=== PATIENT | female | born 1955 | race Caucasian/White ===

== ENCOUNTER 2018-05-24 19:39 | Inpatient (IN) | payer MEDICARE, MEDICAID, SELFPAY ==
[2018-05-24] VITALS (8 sets, daily range): BP systolic 118–146; BP diastolic 74–99; PULSE 70–96; RESP 12–20; TEMP 36.1–37.8; O2SAT 89–94; BMI 29.2
--- NOTE | 2018-05-24 19:34 | DI.RAD.S_ITS ---
PROCEDURE: XR CHEST 1V INDICATIONS: CP, SOB TECHNIQUE: One view of the chest was acquired. COMPARISON: None. FINDINGS: Surgical changes and devices: Multiple ECG leads project of the chest. Surgical clips are seen over the right upper quadrant of the abdomen likely from prior cholecystectomy.. Lungs and pleura: No pleural effusions or pneumothorax. There are diffuse bilateral hazy and reticular pulmonary opacities. Mediastinum: Mediastinal contours appear normal. Heart size is normal. Bones and chest wall: No suspicious bony lesions. Overlying soft tissues appear unremarkable. IMPRESSION: Diffuse bilateral pulmonary opacities concerning for moderate diffuse pulmonary edema, less likely multifocal pneumonia. Dictated by: Vladimir Pedroza M.D. on 05/24/2018 at 21:51 Approved by: Vladimir Pedroza M.D. on 05/24/2018 at 21:53
--- NOTE | 2018-05-24 19:38 | ED.SOB ---
HPI - SOB/Dyspnea General Chief Complaint: Shortness of Breath/Dyspnea Stated Complaint: SOB/ Weakness Time Seen by Provider: 05/24/18 19:40 Source: patient and EMS Mode of arrival: EMS Limitations: no limitations History of Present Illness 63-year-old female with complicated medical history including frequent aspiration pneumonia and a history of ARDS and multiple intubations presents with respiratory distress over the course of the day. She is supposed to ingest wall food, medications and liquid through her G-tube but yesterday broke the rules and says she aspirated. Since then she has had increasing difficulty in breathing. She is not on home oxygen, she lives at home and has a caregiver. She has had subjective fever and increasing shortness of breath and cough. On arrival EMS found her pulse ox to be 71%, And she was cyanotic and obtunded. She was placed on 4 L by nasal cannula and had risen to the upper 80s by her arrival but was still obviously in respiratory distress. She denies any chest pain nor nausea or vomiting. She denies any change in bowel habits. MD Complaint: shortness of breath and cough Onset (ago): hour(s) Context: choking/aspiration Severity: severe Consistency/Duration: constant Relieving factors: oxygen Exacerbating factors: exertion, movement and coughing Associated symptoms: fever, cough and sputum production Treatment prior to arrival: oxygen and bronchodilator Related Data Home oxygen amount: none Home Medications Medication Instructions Recorded Confirmed CHOLECALCIFEROL (VITAMIN D) 2,000 iu TUBE BID #0 09/04/12 05/24/18 MORPHINE SULFATE (#MORPHINE 30 mg TUBE Q6HP PRN #0 09/04/12 05/24/18 SULFATE) albuterol sulfate [Proventil HFA] 2 puff INH Q4HP PRN #8.5 gm 09/04/12 05/24/18 carisoprodol 1 tab TUBE PRN PRN #0 09/04/12 05/24/18 diazepam 5 mg PO BIDP PRN #0 09/04/12 05/24/18 fentanyl 200 mcg TOPICAL Q72H #0 09/04/12 05/24/18 hydromorphone [Dilaudid] 8 mg TUBE TIDP PRN #0 09/04/12 05/24/18 omeprazole-sodium bicarbonate 1 pkt FEEDING TUBE BID #0 09/04/12 05/24/18 [Zegerid] polyethylene glycol 3350 17 gm FEEDING TUBE PRN PRN #0 09/04/12 05/24/18 DIPHENOXYLATE/ATROPINE SULFATE 1 - 2 tab FEEDING TUBE QIDP PRN #0 09/07/12 05/24/18 (DIPHENOXYLATE/ATROPINE) albuterol sulfate 3 ml INH PRN PRN #0 09/07/12 05/24/18 citalopram 10 mg TUBE QDAY #0 09/07/12 05/24/18 ondansetron HCl [Zofran] 1 - 2 tsp TUBE Q6HP PRN #0 09/07/12 05/24/18 promethazine 1 - 2 tab TUBE Q6HP PRN #0 09/07/12 05/24/18 Ketoconazole 1 glenis TOPICAL PRN PRN #0 12/23/16 05/24/18 amlodipine 10 mg FEEDING TUBE QDAY #0 12/23/16 05/24/18 cyclosporine [Restasis] 1 drp/day EYE-BOTH DAILY #0 12/23/16 05/24/18 desonide 1 glenis TOPICAL PRN PRN #0 12/23/16 05/24/18 fentanyl 1 patch TOPICAL Q72H #0 12/23/16 05/24/18 potassium chloride 7.5 ml FEEDING TUBE DAILY #0 12/23/16 05/24/18 diphenhydramine HCl [Benadryl] 1 - 2 tab FEEDING TUBE Q4-6H PRN 05/24/18 05/24/18 mupirocin 1 applic TOPICAL TID 05/24/18 05/24/18 nut.tx.impaired digest fxn 750 ml FEEDING TUBE QPM 05/24/18 05/24/18 [Peptamen 1.5] Allergies Allergy/AdvReac Type Severity Reaction Status Date / Time latex [LATEX] Allergy Mild RASH Verified 05/24/18 20:15 metoclopramide [From REGLAN] Allergy Mild TREMMORS Verified 05/24/18 20:15 Sulfa (Sulfonamide Allergy Mild RASH Verified 05/24/18 20:15 Antibiotics) [SULFA (SULFONAMIDE ANTIBIOTICS)] Review of Systems Review of Systems All systems reviewed & are unremarkable except as noted in HPI and below Constitutional Denies chills, Denies fever(s), Denies lethargy and Denies weakness Eyes Denies change in vision, Denies eye discharge, Denies irritation and Denies loss of vision ENT Ears, Nose, Mouth, and Throat: Denies change in voice, Denies neck pain and Denies sore throat Cardiovascular Denies chest pain, Denies irregular heart rhythm, Denies lightheadedness, Denies palpitations, Denies dyspnea, Denies dyspnea on exertion and Denies orthopnea Respiratory Denies cough, Denies dyspnea, Denies dyspnea on exertion and Denies wheezing Gastrointestinal Gastrointestinal: Denies abdominal pain, Denies change in bowel habits, Denies diarrhea, Denies nausea and Denies vomiting Genitourinary Denies hematuria, Denies flank pain, Denies urinary incontinence and Denies urinary urgency Musculoskeletal Denies neck pain Integumentary/Breasts Denies pruritus, Denies erythema, Denies rash and Denies wounds Neurologic Denies confusion, Denies loss of vision and Denies weakness Psychiatric Denies anxiety, Denies confusion, Denies depression, Denies homicidal ideation and Denies suicidal ideation Endocrine Denies palpitations Hematologic/Lymphatic Denies easy bruising Allergic/Immunologic Denies wheezing FORMERLY [facility], 1928–1983 Social History Smoking Status: Never smoker Exam Narrative Exam Narrative: 63-year-old female, ill-appearing and in respiratory distress with rapid, shallow breathing, pursed lips and use of accessory muscles Initial Vital Signs Initial Vital Signs: Vital Signs Temperature 100.0 F H 05/24/18 19:38 Pulse Rate 96 H 05/24/18 19:38 Respiratory Rate 12 05/24/18 19:38 Blood Pressure 146/86 H 05/24/18 19:38 Pulse Oximetry 94 05/24/18 19:38 Const General: cooperative, well developed, acute distress, disheveled, frail appearing and ill appearing Nutritional Appearance: well nourished Orientation: alert, awake, oriented x3 and not confused HENTX Head: normocephalic and atraumatic Ears: external ears normal and TM's normal bilaterally Nose: external nose normal and No nasal discharge Face and sinus: sinuses nontender, face symmetric, no sinus tenderness and No dry mucous membranes Mouth: oral mucosae normal and moist mucous membranes Teeth and gingiva: dentition normal Throat: tonsils normal and uvula midline Eyes General: appearance normal, both eyes and all related structures Eyelids: eyelids normal Conjunctivae: conjunctivae normal Sclera: sclerae normal Pupils: PERRL EOM: EOM intact bilaterally Chest Chest: normal inspection of the chest Resp Effort & Inspection: normal respiratory effort, able to speak in complete sentences, no respiratory distress and no use of accessory muscles Auscultation: diminished lung sounds, rales, rhonchi and no wheezes Cardio Rate: regular rate Rhythm: regular rhythm Heart Sounds: no click, no gallops, no murmurs and no rubs Pulses: normal peripheral pulses GI Inspection: non-distended Palpation: soft, no hepatosplenomegaly, No guarding, No pulsatile mass and No tender Auscultation: normal bowel sounds Back/Spine/Pelvis Back: No CVA tenderness Cervical Spine: cervical ROM normal and No pain with cervical ROM Thoracic/Lumbar Spine: thoracic and lumbar spine normal to inspection Skin General: no rashes or lesions noted, No jaundice and No petechiae Neuro General: alert, oriented x3, gait normal and no focal motor deficits Speech: speech normal Extrem General: full ROM, no clubbing, cyanosis or edema, no pedal edema and no calf tenderness Psych Appearance: grossly normal Course Course Narrative: patient shows improvement after above-stated therapies but still definitely not at her baseline and will require further stabilization and ongoing treatment including IV antibiotics, fluids and oxygen by nasal cannula. Decision to Admit Date: 05/24/18 Decision to Admit time: 21:19 Orders Ordered: ED Orders 05/24/18 19:30 B Type Natriuretic Peptide Stat Basic Metabolic Panel Stat Complete Blood Count AUTO DIFF Stat Magnesium Stat Procalcitonin Stat Troponin & CK Cardiac Panel Stat 05/24/18 19:33 Consult to Respiratory Therapy Evaluate & Treat EKG-12 Lead Stat 05/24/18 19:34 XR chest 1V Stat 05/24/18 19:50 Lactate (Lactic Acid) Stat 05/24/18 20:05 Arterial Blood Gas Stat 05/24/18 20:55 Blood Culture Stat Sodium Chloride (Normal Saline 0.9%) 1,000 mls @ 150 mls/hr IV CONT SHIMON Last Admin: 05/24/18 20:00 Dose: 150 mls/hr Discontinued Medications Albuterol/Ipratropium (Duoneb) 3 ml INH NOW ONE Stop: 05/24/18 19:34 Last Admin: 05/24/18 19:42 Dose: 3 ml Clindamycin Phosphate (Cleocin) 600 mg in 50 mls @ 50 mls/hr IV NOW ONE Stop: 05/24/18 20:32 Last Infusion: 05/24/18 21:16 Dose: 0 mls/hr Admin: 05/24/18 19:59 Dose: 50 mls/hr Methylprednisolone (Solu-Medrol 125 Mg Vial) 125 mg IV NOW ONE Stop: 05/24/18 19:34 Last Admin: 05/24/18 20:00 Dose: 125 mg Consultations Consultation #1: Dr. Holloway is happy to accept Vital Signs - 8 hr 05/24/18 19:38 05/24/18 19:43 05/24/18 20:25 Temperature 100.0 F H Pulse Rate 96 H 93 H 89 Respiratory Rate 12 12 20 Blood Pressure 146/86 H Blood Pressure [Left Arm] 145/81 H Pulse Oximetry 94 89 L 93 05/24/18 21:03 Temperature Pulse Rate 78 Respiratory Rate 15 Blood Pressure Blood Pressure [Left Arm] 118/74 Pulse Oximetry 94 MDM - SOB/Dyspnea Lab Data Result diagrams: 05/24/18 19:30 05/24/18 19:30 Lab Results 05/24/18 05/24/18 05/24/18 Range/Units 19:30 19:30 19:30 WBC 13.0 H (4.5-11.0) X10^3/uL RBC 5.09 (4.0-5.2) X10^6/uL Hgb 14.7 (12.0-16.0) g/dL Hct 43.4 (36-46) % MCV 85.2 (80-100) fL MCH 28.9 (26-34) PG MCHC 33.9 (30-36) % RDW 14.5 (11.6-14.8) % Plt Count 306 (150-400) X10^3/uL Neut % (Auto) 80.8 H (50-75) % Lymph % (Auto) 14.8 L (25-40) % [place] % (Auto) 2.9 L (3-14) % Eos % (Auto) 1.2 L (2-4) % Baso % (Auto) 0.3 (0-2) % Neut # (Auto) 42517 H (6607-0031) /uL ABG pH (7.35-7.45) ABG pCO2 (35-45) mmHg ABG pO2 (80-105) mmHg ABG HCO3 (23-27) mmol/L ABG Total CO2 (23-27) mmol/L ABG O2 Saturation (95-100) % ABG Base Excess (-2-3) mmol/L FiO2 Sodium 134 L (137-145) mmol/L Potassium 4.1 (3.4-5.1) mmol/L Chloride 87 L (98-107) mmol/L Carbon Dioxide 39 H (22-32) mmol/L BUN 5 L (7-17) mg/dL Creatinine 0.40 L (0.52-1.04) mg/dL Estimated GFR > 60.0 (>60) mL/min BUN/Creatinine Ratio 12.5 (6-22) Glucose 117 H (80-110) mg/dL Lactate (0.7-2.1) mmol/L Calcium 8.8 (8.4-10.2) mg/dL Magnesium 1.9 (1.6-2.3) mg/dL Total Creatine Kinase 31 (30-135) U/L CK-MB (CK-2) TNP CK-MB (CK-2) Rel Index TNP Troponin I < 0.012 (0.01-0.034) ng/mL B-Natriuretic Peptide 47.6 (<100) Procalcitonin < 0.05 (<0.5) ng/mL 05/24/18 05/24/18 Range/Units 19:50 20:05 WBC (4.5-11.0) X10^3/uL RBC (4.0-5.2) X10^6/uL Hgb (12.0-16.0) g/dL Hct (36-46) % MCV (80-100) fL MCH (26-34) PG MCHC (30-36) % RDW (11.6-14.8) % Plt Count (150-400) X10^3/uL Neut % (Auto) (50-75) % Lymph % (Auto) (25-40) % [place] % (Auto) (3-14) % Eos % (Auto) (2-4) % Baso % (Auto) (0-2) % Neut # (Auto) (5024-1709) /uL ABG pH 7.33 L (7.35-7.45) ABG pCO2 63.0 H* (35-45) mmHg ABG pO2 51 L (80-105) mmHg ABG HCO3 33 H (23-27) mmol/L ABG Total CO2 35 H (23-27) mmol/L ABG O2 Saturation 82 L* (95-100) % ABG Base Excess 7.0 H (-2-3) mmol/L FiO2 21 Sodium (137-145) mmol/L Potassium (3.4-5.1) mmol/L Chloride (98-107) mmol/L Carbon Dioxide (22-32) mmol/L BUN (7-17) mg/dL Creatinine (0.52-1.04) mg/dL Estimated GFR (>60) mL/min BUN/Creatinine Ratio (6-22) Glucose (80-110) mg/dL Lactate 1.3 (0.7-2.1) mmol/L Calcium (8.4-10.2) mg/dL Magnesium (1.6-2.3) mg/dL Total Creatine Kinase (30-135) U/L CK-MB (CK-2) CK-MB (CK-2) Rel Index Troponin I (0.01-0.034) ng/mL B-Natriuretic Peptide (<100) Procalcitonin (<0.5) ng/mL Discharge Plan Departure Patient Disposition: Admitted As Inpatient Clinical Impression: Acute and chronic respiratory failure with hypoxia, Aspiration pneumonia Admit Date/Time: 05/24/18 21:29 Admit Provider: Magan Holloway
[2018-05-24] MEDS: ALBUTEROL/IPRATROPIUM 3 ML AMPUL INH (19:42)
[2018-05-24] MEDS: CLINDAMYCIN 600 MG/50 ML PIGGYBACK 50 MG IV (19:59)
[2018-05-24] MEDS: methylPREDNISolone 125 MG/2 ML VIAL IV (20:00)
[2018-05-24] MEDS: SODIUM CHLORIDE 0.9% 1,000 ML 150 ML IV (20:00)
[2018-05-24 20:04] LABS: Add Manual Diff / Slide Review NO; Basophils Percent Auto 0.3 % (0-2); Eosinophils Percent Auto 1.2 % (2-4); Hematocrit 43.4 % (36-46); Hemoglobin 14.7 g/dL (12.0-16.0); Lymphocytes Percent Auto 14.8 % (25-40); Mean Corpuscular HGB Conc 33.9 % (30-36); Mean Corpuscular Hemoglobin 28.9 PG (26-34); Mean Corpuscular Volume 85.2 fL (80-100); Monocytes Percent Auto 2.9 % (3-14); Neutrophils Absolute Auto 10500 /uL (3000-5900); Neutrophils Percent Auto 80.8 % (50-75); Platelet Count 306 X10^3/uL (150-400); Red Blood Cell Count 5.09 X10^6/uL (4.0-5.2); Red Cell Distribution Width 14.5 % (11.6-14.8)
[2018-05-24 20:10] LABS: pH ABG 7.33 (7.35-7.45)
[2018-05-24 20:11] LABS: Fractionated Inspired Oxygen 21; HCO3 ABG 33 mmol/L (23-27); Oxygen Saturation ABG 82 % (95-100); PO2 ABG 51 mmHg (80-105); TCO2 ABG 35 mmol/L (23-27)
[2018-05-24 20:13] LABS: Lactate (Lactic Acid) 1.3 mmol/L (0.7-2.1)
[2018-05-24 20:24] LABS: B Type Natriuretic Peptide 47.6 (<100); BUN Creatinine Ratio 12.5 (6-22); Blood Urea Nitrogen 5 mg/dL (7-17); Calcium 8.8 mg/dL (8.4-10.2); Carbon Dioxide 39 mmol/L (22-32); Chloride 87 mmol/L (98-107); Creatine Kinase 31 U/L (30-135); Estimated Glomerular Filt Rate > 60.0 mL/min (>60); Glucose 117 mg/dL (80-110); HEMOLYSIS 19 (0-50); Magnesium 1.9 mg/dL (1.6-2.3); Potassium 4.1 mmol/L (3.4-5.1); Sodium 134 mmol/L (137-145)
[2018-05-24 20:35] LABS: Troponin I < 0.012 ng/mL (0.01-0.034)
[2018-05-24 20:45] LABS: Procalcitonin < 0.05 ng/mL (<0.5)
--- NOTE | 2018-05-24 21:33 | PC.NURSE ---
Per caregiver, pt is at baseline mentation and verbal ability. He states she is just drowsier than usual. She has 250 mcg of Fentanyl patches on right abdomen. Per doctor's verbal order, removed the 50 mcg Fentanyl patch due to pt drowsiness. Pt continues to require 4L of oxygen nasal cannula.
--- NOTE | 2018-05-24 21:49 | PM.HP.1 ---
History of Present Illness Date Patient Seen: 05/24/18 Time Patient Seen: 21:49 Chief complaint: SOB/ Weakness Narrative: History of present illness For the past several days patient is apparently been taking food by mouth the patient is at risk for aspiration and has a J-tube for nutritional means. Patient was coughing last night after trying to sneak food and then again today patient is apparently been trying to take food by mouth. Patient with sudden shortness of breath. In the home setting emergency services noted patient with 71% pulse ox and cyanotic. Patient does not normally take oxygen and has no oxygen in the home setting. No recent fevers and chills noted. Patient History Family & Social History Safety & Behavioral: Feels Safe in Current Yes Environment Tobacco & Substance use: Smoking Status Never smoker Substance Use Type does not use Comment: Social history Patient lives with her caregiver who is also her significant other No history of smoking. No alcohol abuse history Family history Mother with dementia Meds Home Medications Medication Instructions Recorded Confirmed Type CHOLECALCIFEROL (VITAMIN D) 2,000 iu TUBE BID #0 09/04/12 05/24/18 History MORPHINE SULFATE (#MORPHINE 30 mg TUBE Q6HP PRN #0 09/04/12 05/24/18 History SULFATE) albuterol sulfate [Proventil HFA] 2 puff INH Q4HP PRN #8.5 gm 09/04/12 05/24/18 History carisoprodol 1 tab TUBE PRN PRN #0 09/04/12 05/24/18 History diazepam 5 mg PO BIDP PRN #0 09/04/12 05/24/18 History fentanyl 200 mcg TOPICAL Q72H #0 09/04/12 05/24/18 History hydromorphone [Dilaudid] 8 mg TUBE TIDP PRN #0 09/04/12 05/24/18 History omeprazole-sodium bicarbonate 1 pkt FEEDING TUBE BID #0 09/04/12 05/24/18 History [Zegerid] polyethylene glycol 3350 17 gm FEEDING TUBE PRN PRN #0 09/04/12 05/24/18 History DIPHENOXYLATE/ATROPINE SULFATE 1 - 2 tab FEEDING TUBE QIDP PRN #0 09/07/12 05/24/18 History (DIPHENOXYLATE/ATROPINE) albuterol sulfate 3 ml INH PRN PRN #0 09/07/12 05/24/18 History citalopram 10 mg TUBE QDAY #0 09/07/12 05/24/18 History ondansetron HCl [Zofran] 1 - 2 tsp TUBE Q6HP PRN #0 09/07/12 05/24/18 History promethazine 1 - 2 tab TUBE Q6HP PRN #0 09/07/12 05/24/18 History Ketoconazole 1 glenis TOPICAL PRN PRN #0 12/23/16 05/24/18 History amlodipine 10 mg FEEDING TUBE QDAY #0 12/23/16 05/24/18 History cyclosporine [Restasis] 1 drp/day EYE-BOTH DAILY #0 12/23/16 05/24/18 History desonide 1 glenis TOPICAL PRN PRN #0 12/23/16 05/24/18 History fentanyl 1 patch TOPICAL Q72H #0 12/23/16 05/24/18 History potassium chloride 7.5 ml FEEDING TUBE DAILY #0 12/23/16 05/24/18 History diphenhydramine HCl [Benadryl] 1 - 2 tab FEEDING TUBE Q4-6H PRN 05/24/18 05/24/18 History mupirocin 1 applic TOPICAL TID 05/24/18 05/24/18 History nut.tx.impaired digest fxn 750 ml FEEDING TUBE QPM 05/24/18 05/24/18 History [Peptamen 1.5] Allergies Allergy/AdvReac Type Severity Reaction Status Date / Time latex [LATEX] Allergy Mild RASH Verified 05/24/18 20:15 metoclopramide [From REGLAN] Allergy Mild TREMMORS Verified 05/24/18 20:15 Sulfa (Sulfonamide Allergy Mild RASH Verified 05/24/18 20:15 Antibiotics) [SULFA (SULFONAMIDE ANTIBIOTICS)] Review of Systems Review of Systems A 10 point system review was negative except for the symptoms described which was shortness of breath and cough since last night Exam Vital Signs (past 8 hours): - 05/24/18 19:38 05/24/18 19:43 05/24/18 20:25 Temperature 100.0 F H Pulse Rate 96 H 93 H 89 Respiratory Rate 12 12 20 Blood Pressure 146/86 H Blood Pressure [Left Arm] 145/81 H Pulse Oximetry 94 89 L 93 05/24/18 21:03 Temperature Pulse Rate 78 Respiratory Rate 15 Blood Pressure Blood Pressure [Left Arm] 118/74 Pulse Oximetry 94 Oxygen Delivery Method Nasal Cannula Oxygen Flow Rate 2 Narrative Exam Narrative: General appearance patient has noted a bit lethargic at this time no apparent distress Psychiatric oriented to self and time mood is cooperative pleasant affect appropriate Skin no rashes or lesions Derick to noted on abdominal wall with no evidence of infection locally Eyes pupils are equal round reactive to light Ears nose and throat hearing is grossly intact nose septum midline no bleeding no oropharyngeal lesions noted Respiratory fairly clear to auscultation no significant wheezes or crackles Cardiovascular regular rate rhythm no murmur noted +3 pulses to extremities GI a G-tube in place left lower abdominal region positive bowel sounds are noted abdomen is soft no bruits no guarding no distension Neurologic no focal neurologic changes cranial nerves 2-12 grossly intact Musculoskeletal strength 5/5 clubbing noted range of motion is normal Objective Labs Result Diagrams: 05/24/18 19:30 05/24/18 19:30 Labs: Laboratory Results - last 24 hr 05/24/18 05/24/18 05/24/18 19:30 19:30 19:30 WBC 13.0 H RBC 5.09 Hgb 14.7 Hct 43.4 MCV 85.2 MCH 28.9 MCHC 33.9 RDW 14.5 Plt Count 306 Neut % (Auto) 80.8 H Lymph % (Auto) 14.8 L [place] % (Auto) 2.9 L Eos % (Auto) 1.2 L Baso % (Auto) 0.3 Neut # (Auto) 88121 H ABG pH ABG pCO2 ABG pO2 ABG HCO3 ABG Total CO2 ABG O2 Saturation ABG Base Excess FiO2 Sodium 134 L Potassium 4.1 Chloride 87 L Carbon Dioxide 39 H BUN 5 L Creatinine 0.40 L Estimated GFR > 60.0 BUN/Creatinine Ratio 12.5 Glucose 117 H Lactate Calcium 8.8 Magnesium 1.9 Total Creatine Kinase 31 CK-MB (CK-2) TNP CK-MB (CK-2) Rel Index TNP Troponin I < 0.012 B-Natriuretic Peptide 47.6 Procalcitonin < 0.05 05/24/18 05/24/18 19:50 20:05 WBC RBC Hgb Hct MCV MCH MCHC RDW Plt Count Neut % (Auto) Lymph % (Auto) [place] % (Auto) Eos % (Auto) Baso % (Auto) Neut # (Auto) ABG pH 7.33 L ABG pCO2 63.0 H* ABG pO2 51 L ABG HCO3 33 H ABG Total CO2 35 H ABG O2 Saturation 82 L* ABG Base Excess 7.0 H FiO2 21 Sodium Potassium Chloride Carbon Dioxide BUN Creatinine Estimated GFR BUN/Creatinine Ratio Glucose Lactate 1.3 Calcium Magnesium Total Creatine Kinase CK-MB (CK-2) CK-MB (CK-2) Rel Index Troponin I B-Natriuretic Peptide Procalcitonin Assessment & Plan Plan: Assessment/Plan Narrative: 1. Aspiration pneumonia Infiltrate noted on chest x-ray and right lower lung field Will provide Unasyn 1.5 g IV q.6 hours. Follow-up on blood cultures 2. Hypoxemia Patient noted with 71% pulse ox at room air in the field, as noted by EMS 4 L nasal cannula in the ER patient at 91 and 9 2% 3. High risk for aspiration Patient had a J-tube previously placed in 2008 Patient is normally nothing by mouth 4. Chronic opiate dependency This is due to chronic pain syndrome 5. History of multiple spinal related injury Patient and the caregiver at bedside notes patient with osteoporosis condition. Note patient normally ambulates about in the small apartment unit. Requested PT and OT consult Time Spent With Patient Time with patient: Greater than 35 minutes (55 min)
--- NOTE | 2018-05-24 22:35 | PC.NURSE ---
Admit Note Patient admitted to room 103. Brought over on stretcher by nursing staff, transferred to bed using slider board. Alert and oriented, but drowsy. Caregiver with patient. States she has pain to her back that is chronic and pain to her right forearm that. States she broke her right forearm a few days ago from a fall. CMS intact to forearm and pulses palpable. Dr. Holloway notified of complaint and stated broken arm. Oriented to room and call light, call light within reach, bed alarm on.
[2018-05-24] MEDS: AMPICILLIN/SULBACTAM 1.5 GM 1.5 GM in SODIUM CHLORIDE 0.9% 100 ML IV (22:53)
[2018-05-25 03:19] VITALS: O2SAT 94
[2018-05-25] MEDS: SODIUM CHLORIDE 0.9% 1,000 ML 100 ML IV (03:41)
[2018-05-25 04:34] VITALS: BP 137/80; PULSE 64; RESP 16; TEMP 35.8; O2SAT 94
[2018-05-25] MEDS: AMPICILLIN/SULBACTAM 1.5 GM 1.5 GM in SODIUM CHLORIDE 0.9% 100 ML IV (04:36)
--- NOTE | 2018-05-25 06:20 | PC.NURSE ---
Has not kept eyes open more than 5 minutes all night, woke at 0615 called home and told Emre that she was leaving and would walk home, she wants to go to [facility]. Loud conversation ensued, co-ordinator La called along with Dr. Holloway per pt request.
--- NOTE | 2018-05-25 07:32 | PC.NURSE ---
Am shift 0720 Arrived to unit, to Patient room, with Pt standing in doorway, partially clothed, bed alarm activated. Pt is awaiting her ambulance for transfer to [facility] Attempted to redirect Pt to bed, increased agitation with this RN, discussed POC, and Pt wanted to talk to Dr. Holloway, who was rounding on another Pt. Advised Pt she would need to wait, and I would update him on her Plans to transfer. Pt was not pleased with this answer. Refusing to allow this RN's assessment, Pt has already removed PIV, and is unsteady on her feet. Removed NC and some SOB noted. Attempts to steady Pt, causing increasing agitation. Stood aside, and continued to advise Pt of concerns with unsteady gait. Pt was able to get seated in bed without incident, provided Pt with clothing to get her prepared to leave. AMA paperwork signed by Pt, verbalizing understanding of risks of leaving. Awaiting to give ride. Sitting in bed at present. Will not allow bed alarm to be turned on. This RN at door, [id number]-[id number] up to w/c and arrived to take Pt. This RN took Pt out of ICU and to ER entrance where spouse is moving vehicle. Spouse assisting Pt to car.
--- NOTE | 2018-05-25 07:56 | PT.IPTN ---
Current Diagnoses Pneumonitis due to inhalation of food and vomit (05/24/18) Physical Therapy Treatment Note Physical Therapy Visit Type Type Administrative Note Notes Pt has left the hospital AMA with her just a few minutes ago. Will sign off.
--- NOTE | 2018-05-25 07:57 | OT.IP.TRT ---
Current Diagnoses Pneumonitis due to inhalation of food and vomit (05/24/18) Occupational Therapy Treatment Note M3 OT- IP Subjective and Pain Start: 05/25/18 07:56 Freq: Status: Active Protocol: Document 05/25/18 07:56 [facility] (Rec: 05/25/18 07:57 [facility] [id number]) OT- Subjective Occupational Therapy Visit Type Type Patient Unavailable Notes Pt left AMA this morning per nursing and therefore pt not seen for OT eval.
--- NOTE | 2018-05-25 13:56 | P.DS_ITS ---
History of Present Illness Date Patient Seen: 05/25/18 Time Patient Seen: 07:28 Chief complaint: SOB/ Weakness Narrative: History of present illness For the past several days patient is apparently been taking food by mouth the patient is at risk for aspiration and has a J-tube for nutritional means. Patient was coughing last night after trying to sneak food and then again today patient is apparently been trying to take food by mouth. Patient with sudden shortness of breath. In the home setting emergency services noted patient with 71% pulse ox and cyanotic. Patient does not normally take oxygen and has no oxygen in the home setting. No recent fevers and chills noted. Discharge Providers Date of admission: 05/24/18 2 1:29 Primary care physician: Julián Arriaga MD Consults: 05/24/18 19:33 Consult to Respiratory Therapy Evaluate & Treat Comment: Physician Instructions: Evaluate and treat 05/24/18 21:42 Consult to Dietitian, Adult Routine Comment: Reason For Exam: patient on J tube feeding Consult to Occupational Therapy Evaluate & Treat Comment: Physician Instructions: Evaluate and treat Consult to Physical Therapy Evaluate & Treat Comment: Physician Instructions: Evaluate and Treat Discharge provider: Magan Holloway MD Summary Discharge Diagnosis: 1. Aspiration pneumonia Infiltrate noted on chest x-ray and right lower lung field Will provide Unasyn 1.5 g IV q.6 hours. Follow-up on blood cultures 2. Hypoxemia Patient noted with 71% pulse ox at room air in the field, as noted by EMS 4 L nasal cannula in the ER patient at 91 and 92% 3. High risk for aspiration Patient had a J-tube previously placed in 2008 Patient is normally nothing by mouth 4. Chronic opiate dependency This is due to chronic pain syndrome. Multiple narcotic therapy provided chronically to the patient 5. History of multiple spinal related injury Patient and the caregiver at bedside notes patient with osteoporosis condition. Note patient normally ambulates about in the small apartment unit. Requested PT and OT consult Hospital Course: Patient is a 63 years of age female who presents by EMS after being found in home setting with a pulse ox of 71% at room air. Patient with a history of high risk aspiration who has a J-tube in place. Patient is meant to be strict NPO. Patient has a caregiver/significant other that lives with her. The caregiver notes at bedside in the ER that patient had been taking food by mouth both last night and the night before hand. Since 2 nights ago patient had been coughing which appears related to this food ingestion by mouth. Patient was admitted to the hospital for aspiration pneumonia as noted on chest x-ray. Patient stabilized with the oxygen via nasal cannula in the ER. Patient was then admitted to the ICU with continuance of her usual home medications and addition of the Unasyn antibiotic 1.5 g IV q.6 hours. During the tower attendant hours patient apparently became quite somnolent. The nurse held the patient's usual narcotic regimen she takes in the home setting. The following morning patient was quite adamant that her home narcotic med should be given and unwilling to acknowledge that when she is overly somnolent day should be held at that point. She was already visibly upset as noted by the nursing staff and was threatening to leave against medical advise. She had already called her significant other to come take her from the hospital in transporter to [facility]. When I spoke to the patient in the ICU setting shortly afterward she did not appear any more cooperative and willing to acknowledge that when she is overly somnolent the nurses have a responsibility to hold the narcotic medication. Patient is insistent that her medication should be provided, even under such circumstances. Patient had stated to me in the ER last evening that she had preferred to be brought to [facility] where her doctors are located and to be transported to [facility]. Since the EMS was bringing her to the nearest hospital she was brought here instead. It is unclear whether her interest to be discharged or leave against medical advice so that she can go to [facility] may be a matter of her attitude more than simply this decision by the nurse to hold her narcotic dose when she appeared to be overly somnolent. Patient was unwilling to accept the nurses discretion in holding narcotics when the patient overly somnolent. She signed against medical advice and left the hospital. Patient was not physically examined by me before she left the hospital. I was hopeful when her caregiver came to the hospital we could readdress her issues with the support of her caregiver. I had a concern regarding the amount of the narcotic that she normally takes on a regular basis but was not intent on adjusting these medications at the time of admission. 20 min devoted to the patient at bedside trying to have patient understand the role of the nurse in cautiously administering narcotic medication when the patient may be perceived overly somnolent. Status at Discharge Cognitive/behavioral status at discharge: Patient was coherent and capable of decision making capacity to leave against medical advise. Functional status at discharge: independent ambulation Exam Vital Signs (past 8 hours): Oxygen Delivery Method Room Air Oxygen Flow Rate 4 Narrative Exam Narrative: Patient was not examined by me this morning before leaving the hospital against medical advice. Objective Labs Result Diagrams: 05/24/18 19:30 05/24/18 19:30 Labs: Laboratory Results - last 24 hr 05/24/18 05/24/18 05/24/18 19:30 19:30 19:30 WBC 13.0 H RBC 5.09 Hgb 14.7 Hct 43.4 MCV 85.2 MCH 28.9 MCHC 33.9 RDW 14.5 Plt Count 306 Neut % (Auto) 80.8 H Lymph % (Auto) 14.8 L [place] % (Auto) 2.9 L Eos % (Auto) 1.2 L Baso % (Auto) 0.3 Neut # (Auto) 28867 H ABG pH ABG pCO2 ABG pO2 ABG HCO3 ABG Total CO2 ABG O2 Saturation ABG Base Excess FiO2 Sodium 134 L Potassium 4.1 Chloride 87 L Carbon Dioxide 39 H BUN 5 L Creatinine 0.40 L Estimated GFR > 60.0 BUN/Creatinine Ratio 12.5 Glucose 117 H Lactate Calcium 8.8 Magnesium 1.9 Total Creatine Kinase 31 CK-MB (CK-2) TNP CK-MB (CK-2) Rel Index TNP Troponin I < 0.012 B-Natriuretic Peptide 47.6 Procalcitonin < 0.05 Nasal Screen MRSA (PCR) 05/24/18 05/24/18 05/24/18 19:50 20:05 22:00 WBC RBC Hgb Hct MCV MCH MCHC RDW Plt Count Neut % (Auto) Lymph % (Auto) [place] % (Auto) Eos % (Auto) Baso % (Auto) Neut # (Auto) ABG pH 7.33 L ABG pCO2 63.0 H* ABG pO2 51 L ABG HCO3 33 H ABG Total CO2 35 H ABG O2 Saturation 82 L* ABG Base Excess 7.0 H FiO2 21 Sodium Potassium Chloride Carbon Dioxide BUN Creatinine Estimated GFR BUN/Creatinine Ratio Glucose Lactate 1.3 Calcium Magnesium Total Creatine Kinase CK-MB (CK-2) CK-MB (CK-2) Rel Index Troponin I B-Natriuretic Peptide Procalcitonin Nasal Screen MRSA (PCR) Negative for mrsa Discharge Plan Discharge Plan Patient Disposition: Left Against Medical Advice Discharge Med Rec/Prescriptions Prescriptions: No Action fentanyl 100 MCG/HR patch 72 hour 200 mcg Topical Q72H Qty: 0 RF: 0 polyethylene glycol 3350 255 GM powder 17 gm Feeding Tube PRN PRN (Reason: Constipation) Qty: 0 RF: 0 omeprazole-sodium bicarbonate [Zegerid] 40 MG packet 1 pkt Feeding Tube BID Qty: 0 RF: 0 albuterol sulfate [Proventil HFA] 90 MCG/PUFF HFA aerosol inhaler 2 puff INH Q4HP PRN (Reason: Shortness Of Breath) Qty: 8.5 RF: 0 diazepam 5 MG tablet 5 mg PO BIDP PRN (Reason: Nausea) Qty: 0 RF: 0 MORPHINE SULFATE (#MORPHINE SULFATE) liquid 30 mg TUBE Q6HP PRN (Reason: Pain (Scale Score 7-10)) Qty: 0 RF: 0 hydromorphone [Dilaudid] 8 MG tablet 8 mg TUBE TIDP PRN (Reason: Pain, Severe) Qty: 0 RF: 0 carisoprodol 350 MG tablet 1 tab TUBE PRN PRN (Reason: Spasms) Qty: 0 RF: 0 CHOLECALCIFEROL (VITAMIN D) 2,000 iu TUBE BID Qty: 0 RF: 0 citalopram 10 MG/5 ML solution 10 mg TUBE QDAY Qty: 0 RF: 0 promethazine 25 MG tablet 1 - 2 tab TUBE Q6HP PRN (Reason: Nausea) Qty: 0 RF: 0 albuterol sulfate 2.5 MG/3 ML solution for nebulization 3 ml INH PRN PRN (Reason: Shortness Of Breath) Qty: 0 RF: 0 DIPHENOXYLATE/ATROPINE SULFATE (DIPHENOXYLATE/ATROPINE) 1 - 2 tab Feeding Tube QIDP PRN (Reason: Diarrhea) Qty: 0 RF: 0 ondansetron HCl [Zofran] 4 MG/5 ML solution 1 - 2 tsp TUBE Q6HP PRN (Reason: Nausea) Qty: 0 RF: 0 fentanyl 50 MCG/HR patch 72 hour 1 patch Topical Q72H Qty: 0 RF: 0 amlodipine 10 MG tablet 10 mg Feeding Tube QDAY Qty: 0 RF: 0 desonide 0.05 % lotion 1 glenis Topical PRN PRN (Reason: Rash) Qty: 0 RF: 0 cyclosporine [Restasis] 1 EACH dropperette 1 drp/day EYE-BOTH DAILY Qty: 0 RF: 0 Ketoconazole 1 glenis Topical PRN PRN (Reason: Rash) Qty: 0 RF: 0 potassium chloride 20 MEQ/15 ML liquid 7.5 ml Feeding Tube DAILY Qty: 0 RF: 0 diphenhydramine HCl [Benadryl] 25 mg Capsule 1 - 2 tab Feeding Tube Q4-6H PRN (Reason: Itching) RF: 0 nut.tx.impaired digest fxn [Peptamen 1.5] 0.068 gram- 1.5 kcal/mL Liquid 750 ml Feeding Tube QPM RF: 0 mupirocin 2 % Ointment 1 applic TOPICAL TID RF: 0 Follow up/Referrals: Julián Arriaga MD [Primary Care Provider] - Visit Report/Discharge Packet Visit Report Forms: Stroke Signs & Symptoms Discharge Data Primary Care Provider: Julián Arriaga Attending Provider: Magan Holloway Admit Date/Time: 05/24/18 21:29 Discharges patient from system. Discharge Date/Time: 05/25/18 07:42 Quality VTE Deep Vein Thrombosis/Pulmonary Embolism Present on Admission: No
== END 2018-05-25 07:42 | disposition left against medical advice (07) | DRG 177 ==
LOC: ED 21:14 → AC 21:30 → ICU 23:55
PROVIDERS: Admitting Provider Internal Medicine; Emergency Provider Emergency Medicine; Family Provider Internal Medicine; PCP Internal Medicine; Visit Provider Internal Medicine
DX: J69.0 Pneumonitis due to inhalation of food and vomit (principal); J96.01 Acute respiratory failure with hypoxia; F11.20 Opioid dependence, uncomplicated; R09.02 Hypoxemia; Z93.4 Other artificial openings of gastrointestinal tract status; R40.2362 Coma scale, best motor response, obeys commands, at arrival to emergency department; R40.2142 Coma scale, eyes open, spontaneous, at arrival to emergency department; R40.2242 Coma scale, best verbal response, confused conversation, at arrival to emergency department; Z53.21 Procedure and treatment not carried out due to patient leaving prior to being seen by health care provider; M81.0 Age-related osteoporosis without current pathological fracture
CPT/HCPCS: 36415; 36591; 36600; 71045; 80048; 82550; 82805; 83605; 83735; 83880; 84145; 84484; 85025; 87040; 87797; 93005; 94640; 96365; 96375; 99283; 99285; J0295; J2930

== ENCOUNTER 2021-06-09 17:54 | Inpatient (IN) | payer MEDICARE, MEDICAID, SELFPAY ==
[2018-05-24 21:40] VITALS: BMI 29.2
[2021-06-09] VITALS (8 sets, daily range): BP systolic 111–136; BP diastolic 67–78; PULSE 75–87; RESP 14–20; TEMP 36.7–37.7; O2SAT 86–97; BMI 31.2
--- NOTE | 2021-06-09 17:56 | DI.RAD.S_ITS ---
PROCEDURE: XR CHEST 1V INDICATIONS: shortness of breath TECHNIQUE: One view of the chest was acquired. COMPARISON: [facility], CT, CT CHEST WITHOUT CONTRAST, 10/20/2019, 13:20. [facility], CR, XR CHEST 1V, 05/24/2018, 19:59. FINDINGS: Surgical changes and devices: None. Lungs and pleura: There are increased confluent airspace opacities in the left lung base. Persistent perihilar right opacities and septal thickening are redemonstrated. There is a possible small left pleural effusion. No pneumothorax. Mediastinum: Mediastinal contours appear unchanged. Heart size is enlarged. Bones and chest wall: No suspicious bony lesions. Overlying soft tissues appear unremarkable. IMPRESSION: 1. Increased confluent airspace opacities in the left lung base likely represents consolidation and pneumonia. 2. Persistent right perihilar peribronchial opacities and septal thickening which appear similar to the prior study and are compatible with sequelae of chronic infectious/inflammatory changes. Dictated by: Bennie Bradley M.D. on 06/09/2021 at 18:42 Approved by: Bennie Bradley M.D. on 06/09/2021 at 18:57
--- NOTE | 2021-06-09 18:15 | ED.SOB ---
HPI - SOB/Dyspnea General Chief Complaint: Shortness of Breath/Dyspnea Stated Complaint: low O2 Time Seen by Provider: 06/09/21 18:06 Source: patient and family Mode of arrival: Wheelchair Limitations: no limitations History of Present Illness HPI Narrative: ?66-year-old female with complicated medical history including frequent aspiration pneumonia and a history of ARDS and multiple intubations presents with respiratory distress over the course of the day or two. She is a full code and lives at home without nursing assistance. On a normal days she ambulates with assistance such as a walker or a cane. She has been of tended, significantly fatigued and worn out to the point that she has not got out of bed today. She is sleepy but arousable. She has had no obvious fever. She has had no obvious chest pain. She has had no nausea, vomiting or diarrhea. There has been no other changes in medications or diet. Her last hospitalization was in 2019 at [facility]. Related Data Home Medications Medication Instructions Recorded Confirmed CHOLECALCIFEROL (VITAMIN D) 2,000 iu TUBE BID #0 09/04/12 06/09/21 albuterol sulfate 90 mcg/actuation 2 puff INH Q4HP PRN #8.5 gm 09/04/12 06/09/21 aerosol inhaler (Proventil HFA) carisoprodol 350 mg tablet 1 tab TUBE Q4H PRN #0 09/04/12 06/09/21 diazepam 5 mg tablet 10 mg PO Q8H PRN #0 09/04/12 06/09/21 fentanyl 100 mcg/hr transdermal 200 mcg TOPICAL Q72H #0 09/04/12 06/09/21 patch hydromorphone 8 mg tablet 8 mg TUBE TIDP PRN #0 09/04/12 06/09/21 (Dilaudid) omeprazole 40 mg-sodium 2 pkt FEEDING TUBE BID #0 09/04/12 06/09/21 bicarbonate 1,680 mg oral packet (Zegerid) polyethylene glycol 3350 17 17 gm FEEDING TUBE PRN PRN #0 09/04/12 06/09/21 gram/dose oral powder DIPHENOXYLATE/ATROPINE SULFATE 1 - 2 tab FEEDING TUBE QIDP PRN #0 09/07/12 06/09/21 (DIPHENOXYLATE/ATROPINE) albuterol sulfate 3 ml INH PRN PRN #0 09/07/12 06/09/21 citalopram 10 mg/5 mL oral solution 20 mg TUBE QDAY #0 09/07/12 06/09/21 ondansetron HCl 4 mg/5 mL oral 1 - 2 tsp TUBE Q6HP PRN #0 09/07/12 06/09/21 solution (Zofran) promethazine 25 mg tablet 1 - 2 tab TUBE Q6HP PRN #0 09/07/12 06/09/21 Ketoconazole 1 glenis TOPICAL PRN PRN #0 12/23/16 06/09/21 amlodipine 10 mg tablet 10 mg FEEDING TUBE QDAY #0 12/23/16 06/09/21 cyclosporine 0.05 % eye drops in a 1 drp/day EYE-BOTH BID #0 12/23/16 06/09/21 dropperette (Restasis) desonide 0.05 % lotion 1 glenis TOPICAL PRN PRN #0 12/23/16 06/09/21 fentanyl 50 mcg/hr transdermal 1 patch TOPICAL Q72H #0 12/23/16 06/09/21 patch potassium chloride 20 mEq/15 mL 5.625 ml FEEDING TUBE DAILY #0 12/23/16 06/09/21 oral liquid diphenhydramine HCl 25 mg capsule 1 - 2 tab FEEDING TUBE Q4-6H PRN 05/24/18 06/09/21 (Benadryl) mupirocin 2 % topical ointment 1 applic TOPICAL TID 05/24/18 06/09/21 nut.tx.impaired digest fxn 0.068 750 ml FEEDING TUBE QPM 05/24/18 05/24/18 gram-1.5 kcal/mL oral liquid (Peptamen 1.5) cyanocobalamin (vitamin B-12) 1,000 mcg PO BID 06/09/21 06/09/21 1,000 mcg tablet morphine 10 mg/5 mL oral solution 30 mg FEEDING TUBE Q6H PRN 06/09/21 06/09/21 naloxone 4 mg/actuation nasal 4 mg INTRANASAL Q3M PRN 06/09/21 06/09/21 spray (Narcan) sennosides 8.6 mg tablet (senna) 8.6 mg PO BEDTIME PRN 06/09/21 06/09/21 triamcinolone acetonide 0.5 % 1 applic TOPICAL BID PRN 06/09/21 06/09/21 topical cream Allergies Allergy/AdvReac Type Severity Reaction Status Date / Time latex [LATEX] Allergy Mild RASH Verified 06/09/21 18:02 metoclopramide [From REGLAN] Allergy Mild TREMMORS Verified 06/09/21 18:02 Sulfa (Sulfonamide Allergy Mild RASH Verified 06/09/21 18:02 Antibiotics) [SULFA (SULFONAMIDE ANTIBIOTICS)] Review of Systems Review of Systems ROS Unobtainable: Unobtainable due to mental status/LOC Patient History Medical History (Updated 06/09/21 @ 20:22 by Nya Arias MD) Accident Chronic low back pain (01/07/06) Chronic narcotic dependence Depression Fusion of lumbar spine Hormone replacement therapy (postmenopausal) (07/03/05) Late eff spine/trunk fx (08/16/05) Unspecified essential hypertension (07/03/05) Surgical History (Updated 06/09/21 @ 20:22 by Nya Arias MD) H/O hysterectomy for benign disease History of cholecystectomy History of Mendez fundoplication Status post thoracic spinal fusion Status post-operative repair of hip fracture Family History (Updated 06/09/21 @ 20:19 by Nya Arias MD) Mother Alzheimer disease Father Pneumonia Social History household members: caregiver Smoking Status: Never smoker alcohol intake: never Smoking Status: Never smoker Substance Use Type: does not use Exam Narrative Exam Narrative: GENERAL: [66 year old patient appears stated age. Well-developed patient, in mild distress. Resting comfortably, arousable to noxious stimuli, guarding her airway and secretions HEAD: Atraumatic. Normocephalic. EYES: Pupils equal round and reactive. Extraocular motions intact. No scleral icterus. No injection or drainage. ENT: Nose without bleeding, purulent drainage. Throat without erythema, tonsillar hypertrophy or exudate. Airway patent. NECK: Trachea midline. Non tender CARDIOVASCULAR: Regular rate and rhythm without murmurs, gallops, or rubs. RESPIRATORY: No significant or in creased work of breathing, faint crackles in bilateral bases GASTROINTESTINAL: Abdomen soft, non-tender, nondistended. EXTREMITIES: No edema or joint tenderness. BACK: Nontender without deformity or crepitance. No flank tenderness. SKIN: No rash or erythema of visible areas Initial Vital Signs Initial Vital Signs: Vital Signs Temperature 99.9 F H 06/09/21 17:55 Pulse Rate 86 06/09/21 17:55 Blood Pressure 136/73 06/09/21 17:55 Pulse Oximetry 86 L 06/09/21 17:55 Course Orders Ordered: ED Orders 06/09/21 20:38 Arterial Blood Gas Stat Albuterol (Albuterol 2.5 Mg/3 Ml Neb (Adult)) 2.5 mg INH PRN PRN PRN Reason: Shortness Of Breath Albuterol (Albuterol Hfa Mdi 60 Puff/8 Gm Inhaler) 2 puff INH Q4H PRN PRN Reason: Shortness Of Breath Amlodipine Besylate (Amlodipine 5 Mg Tablet) 10 mg TUBE DAILY [facility] Last Admin: 06/10/21 00:23 Dose: Not Given Documented by: HENNY Carisoprodol (Carisoprodol 350 Mg Tablet) 175 mg TUBE Q4H PRN PRN Reason: Spasms Citalopram Hydrobromide (Citalopram 10 Mg Tablet) 20 mg PO DAILY [facility] Cyanocobalamin (Cyanocobalamin (Vitamin B-12) 500 Mcg Tablet) 1,000 mcg PO BID [facility] Diazepam (Diazepam 5 Mg Tablet) 10 mg PO Q8H PRN PRN Reason: Anxiety Diphenhydramine HCl (Diphenhydramine 25 Mg Tablet) 25 mg PO Q4H PRN PRN Reason: Itching Enoxaparin Sodium (Enoxaparin 40 Mg/0.4 Ml Syringe) 40 mg SUBCUT DAILY [facility] Sodium Chloride (Normal Saline 0.9%) 1,000 mls @ 100 mls/hr IV CONT [facility] Last Admin: 06/09/21 19:52 Dose: 100 mls/hr Documented by: LILLY Piperacillin Sod/Tazobactam (Sod 3.375 gm/ Sodium Chloride) 100 mls @ 25 mls/hr IV Q8H [facility] Last Admin: 06/10/21 02:03 Dose: 25 mls/hr Documented by: HENNY Naloxone HCl (Naloxone 0.4 Mg/Ml Vial) 0.2 mg IV Q2MIN PRN PRN Reason: Opiate Reversal Cyclosporine [ Restasis] 1 Each Dropperette) 1 drop EYE-BOTH BID [facility] Desonide 0.05 % (Lotion)) 1 glenis TOP PRN PRN PRN Reason: Rash Ondansetron HCl (Ondansetron 4 Mg/2 Ml Inj) 4 mg IV Q8HR PRN PRN Reason: Nausea And Vomiting Ondansetron HCl (Ondansetron 4 Mg Odt) 4 mg PO Q8HR PRN PRN Reason: Nausea And Vomiting Vitamin D (Cholecalciferol (Vitamin D3) 1,000 Unit Tablet) 2,000 unit PO BID [facility] Discontinued Medications Levofloxacin (Levaquin) 750 mg in 150 mls @ 100 mls/hr IV NOW ONE Stop: 06/09/21 20:36 Last Infusion: 06/09/21 21:50 Dose: 0 mls/hr Documented by: Infusion: 06/09/21 19:32 Dose: 100 mls/hr Documented by: Admin: 06/09/21 19:32 Dose: 100 mls/hr Documented by: STEFANIE POTASSIUM CHLORIDE IN WATER (Potassium Cl 10 Meq/100 Ml Hemlaatha) 10 meq in 100 mls @ 100 mls/hr IV Q1H [facility] Stop: 06/09/21 23:14 Last Infusion: 06/10/21 02:03 Dose: 0 mls/hr Documented by: Admin: 06/10/21 00:32 Dose: 100 mls/hr Documented by: Infusion: 06/10/21 00:27 Dose: 100 mls/hr Documented by: Admin: 06/09/21 23:27 Dose: 100 mls/hr Documented by: Infusion: 06/09/21 23:23 Dose: 100 mls/hr Documented by: Admin: 06/09/21 22:23 Dose: 100 mls/hr Documented by: Infusion: 06/09/21 22:23 Dose: 100 mls/hr Documented by: Infusion: 06/09/21 21:24 Dose: 100 mls/hr Documented by: Infusion: 06/09/21 19:33 Dose: 0 mls/hr Documented by: Admin: 06/09/21 19:32 Dose: 100 mls/hr Documented by: STEFANIE Piperacillin Sod/Tazobactam (Sod 3.375 gm/ Sodium Chloride) 100 mls @ 25 mls/hr IV Q8H [facility] Last Admin: 06/10/21 00:49 Dose: Not Given Documented by: HENNY Vital Signs Vital signs: Vital Signs - 8 hr 06/09/21 17:55 06/09/21 18:00 06/09/21 18:30 Temperature 99.9 F H Pulse Rate 86 87 79 Respiratory Rate 20 Blood Pressure 136/73 136/73 Pulse Oximetry 86 L 92 93 MDM - SOB/Dyspnea Lab Data Result diagrams: 06/09/21 18:00 06/09/21 18:00 Labs: Lab Results 06/09/21 06/09/21 06/09/21 Range/Units 17:55 18:00 18:00 WBC 24.3 H (4.5-11.0) X10^3/uL RBC 5.43 H (4.0-5.2) X10^6/uL Hgb 14.1 (12.0-16.0) g/dL Hct 43.8 (36-46) % MCV 80.8 (80-100) fL MCH 26.0 (26-34) PG MCHC 32.2 (30-36) % RDW 15.3 H (11.6-14.8) % Plt Count 229 (150-400) X10^3/uL Neut % (Auto) 94.9 H (50-75) % Lymph % (Auto) 2.5 L (25-40) % [place] % (Auto) 2.6 L (3-14) % Eos % (Auto) 0.0 L (2-4) % Baso % (Auto) 0.0 (0-2) % Neut # (Auto) 36865 H (6270-5149) /uL Lymph # (Auto) 600 L (1245-6377) /uL [place] # (Auto) 600 (0-900) /uL Eos # (Auto) 0 (0-450) /uL Baso # (Auto) 0 (0-100) /uL Sodium 126 L (137-145) mmol/L Potassium 2.9 L (3.4-5.1) mmol/L Chloride 84 L (98-107) mmol/L Carbon Dioxide 36 H (22-32) mmol/L BUN 10 (7-17) mg/dL Creatinine 0.53 (0.52-1.04) mg/dL Estimated GFR > 60.0 (>60) mL/min BUN/Creatinine Ratio 18.9 (6-22) Glucose 167 H (80-110) mg/dL Hemoglobin A1c (4.0-6.0) % Lactate (0.7-2.1) mmol/L Calcium 9.8 (8.4-10.2) mg/dL Total Bilirubin 0.9 (0.2-1.3) mg/dL AST 28 (14-36) IU/L ALT 15 (<35) IU/L Alkaline Phosphatase 73 (38-126) U/L Total Creatine Kinase (30-135) U/L CK-MB (CK-2) CK-MB (CK-2) Rel Index Troponin I (0.01-0.034) ng/mL NT-Pro-B Natriuret Pep 6760 H (<125) pg/mL Total Protein 7.8 (6.3-8.2) g/dL Albumin 4.0 (3.5-5.0) g/dL Globulin 3.8 (1.7-4.1) g/dL Albumin/Globulin Ratio 1.1 (1.0-2.8) Procalcitonin (<0.5) ng/mL SARS-CoV-2 (PCR) Negative (Negative) 06/09/21 06/09/21 06/09/21 Range/Units 18:00 18:00 18:00 WBC (4.5-11.0) X10^3/uL RBC (4.0-5.2) X10^6/uL Hgb (12.0-16.0) g/dL Hct (36-46) % MCV (80-100) fL MCH (26-34) PG MCHC (30-36) % RDW (11.6-14.8) % Plt Count (150-400) X10^3/uL Neut % (Auto) (50-75) % Lymph % (Auto) (25-40) % [place] % (Auto) (3-14) % Eos % (Auto) (2-4) % Baso % (Auto) (0-2) % Neut # (Auto) (0509-7148) /uL Lymph # (Auto) (1831-8571) /uL [place] # (Auto) (0-900) /uL Eos # (Auto) (0-450) /uL Baso # (Auto) (0-100) /uL Sodium (137-145) mmol/L Potassium (3.4-5.1) mmol/L Chloride (98-107) mmol/L Carbon Dioxide (22-32) mmol/L BUN (7-17) mg/dL Creatinine (0.52-1.04) mg/dL Estimated GFR (>60) mL/min BUN/Creatinine Ratio (6-22) Glucose (80-110) mg/dL Hemoglobin A1c (4.0-6.0) % Lactate 1.8 (0.7-2.1) mmol/L Calcium (8.4-10.2) mg/dL Total Bilirubin (0.2-1.3) mg/dL AST (14-36) IU/L ALT (<35) IU/L Alkaline Phosphatase (38-126) U/L Total Creatine Kinase 45 (30-135) U/L CK-MB (CK-2) TNP CK-MB (CK-2) Rel Index TNP Troponin I 0.077 H (0.01-0.034) ng/mL NT-Pro-B Natriuret Pep (<125) pg/mL Total Protein (6.3-8.2) g/dL Albumin (3.5-5.0) g/dL Globulin (1.7-4.1) g/dL Albumin/Globulin Ratio (1.0-2.8) Procalcitonin 0.24 (<0.5) ng/mL SARS-CoV-2 (PCR) (Negative) 06/09/21 Range/Units 18:00 WBC (4.5-11.0) X10^3/uL RBC (4.0-5.2) X10^6/uL Hgb (12.0-16.0) g/dL Hct (36-46) % MCV (80-100) fL MCH (26-34) PG MCHC (30-36) % RDW (11.6-14.8) % Plt Count (150-400) X10^3/uL Neut % (Auto) (50-75) % Lymph % (Auto) (25-40) % [place] % (Auto) (3-14) % Eos % (Auto) (2-4) % Baso % (Auto) (0-2) % Neut # (Auto) (1380-1727) /uL Lymph # (Auto) (1132-7901) /uL [place] # (Auto) (0-900) /uL Eos # (Auto) (0-450) /uL Baso # (Auto) (0-100) /uL Sodium (137-145) mmol/L Potassium (3.4-5.1) mmol/L Chloride (98-107) mmol/L Carbon Dioxide (22-32) mmol/L BUN (7-17) mg/dL Creatinine (0.52-1.04) mg/dL Estimated GFR (>60) mL/min BUN/Creatinine Ratio (6-22) Glucose (80-110) mg/dL Hemoglobin A1c 5.9 (4.0-6.0) % Lactate (0.7-2.1) mmol/L Calcium (8.4-10.2) mg/dL Total Bilirubin (0.2-1.3) mg/dL AST (14-36) IU/L ALT (<35) IU/L Alkaline Phosphatase (38-126) U/L Total Creatine Kinase (30-135) U/L CK-MB (CK-2) CK-MB (CK-2) Rel Index Troponin I (0.01-0.034) ng/mL NT-Pro-B Natriuret Pep (<125) pg/mL Total Protein (6.3-8.2) g/dL Albumin (3.5-5.0) g/dL Globulin (1.7-4.1) g/dL Albumin/Globulin Ratio (1.0-2.8) Procalcitonin (<0.5) ng/mL SARS-CoV-2 (PCR) (Negative) MDM Narrative Medical decision making narrative: DDimer noted to be elevated after patient left department. Call to hospitalist to be sure PE considered higher on differential, he will at [facility]. Discharge Plan Departure Patient Disposition: Admitted As Inpatient Clinical Impression: Acute hypoxemic respiratory failure, Acute hypokalemia Pneumonia Qualifiers: Pneumonia type: due to unspecified organism Laterality: bilateral Lung location: unspecified part of lung Qualified Code(s): J18.9 - Pneumonia, unspecified organism Admit Date/Time: 06/09/21 19:18 Admit Provider: Nya Arias
[2021-06-09 18:22] LABS: COVID19 -Nasal RAPID Negative (Negative)
[2021-06-09 18:29] LABS: Add Manual Diff / Slide Review NO; Basophils Absolute Auto 0 /uL (0-100); Eosinophils Absolute Auto 0 /uL (0-450); Hematocrit 43.8 % (36-46); Hemoglobin 14.1 g/dL (12.0-16.0); Lymphocytes Absolute Auto 600 /uL (1100-4500); Lymphocytes Percent Auto 2.5 % (25-40); Mean Corpuscular HGB Conc 32.2 % (30-36); Mean Corpuscular Volume 80.8 fL (80-100); Monocytes Absolute Auto 600 /uL (0-900); Monocytes Percent Auto 2.6 % (3-14); Neutrophils Absolute Auto 23100 /uL (1500-7000); Neutrophils Percent Auto 94.9 % (50-75); Platelet Count 229 X10^3/uL (150-400); Red Blood Cell Count 5.43 X10^6/uL (4.0-5.2); Red Cell Distribution Width 15.3 % (11.6-14.8); White Blood Cell Count 24.3 X10^3/uL (4.5-11.0)
--- NOTE | 2021-06-09 18:32 | PC.NURSE ---
Pt arrived with sat 87% with h/o GI bleeds and Aspiration PNA with Jtube in place for feedings. noted pt to have dried blood around mouth and nares and appears pale in color. Placed on NC 5L O2 with improvement to 95%. denies pain at this time. states coffee ground emesis this morning. IV in place and type and screened. COVID swabbed and pending. XR obtained. awaiting further orders.
[2021-06-09 18:39] LABS: Lactate (Lactic Acid) 1.8 mmol/L (0.7-2.1)
[2021-06-09 18:40] LABS: Alanine Aminotransferase 15 IU/L (<35); Albumin Globulin Ratio 1.1 (1.0-2.8); Alkaline Phosphatase 73 U/L (38-126); Aspartate Aminotransferase 28 IU/L (14-36); BUN Creatinine Ratio 18.9 (6-22); Bilirubin Total 0.9 mg/dL (0.2-1.3); Blood Urea Nitrogen 10 mg/dL (7-17); Calcium 9.8 mg/dL (8.4-10.2); Carbon Dioxide 36 mmol/L (22-32); Chloride 84 mmol/L (98-107); Estimated Glomerular Filt Rate > 60.0 mL/min (>60); Globulin 3.8 g/dL (1.7-4.1); Glucose 167 mg/dL (80-110); HEMOLYSIS < 15 (0-50); Potassium 2.9 mmol/L (3.4-5.1); Sodium 126 mmol/L (137-145); Total Protein 7.8 g/dL (6.3-8.2)
[2021-06-09 18:49] LABS: NT-proBNP (BNP-Adult 18+) 6760 pg/mL (<125)
[2021-06-09 18:57] LABS: Procalcitonin 0.24 ng/mL (<0.5)
[2021-06-09 19:23] LABS: Creatine Kinase 45 U/L (30-135)
[2021-06-09] MEDS: levoFLOXacin 750 MG/150 ML PIGGYBACK 100 MG IV (19:32)
[2021-06-09] MEDS: POTASSIUM CHLORIDE IN WATER 10 MEQ/100 ML PIGGYBACK 100 MEQ IV ×3 (19:32→23:27)
[2021-06-09 19:36] LABS: Troponin I 0.077 ng/mL (0.01-0.034)
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
[2021-06-09] MEDS: SODIUM CHLORIDE 0.9% 1,000 ML 100 ML IV (19:52)
[2021-06-09 21:59] LABS: PO2 ABG 67 mmHg (80-100); pH ABG 7.45 (7.35-7.45)
[2021-06-09 22:00] LABS: Fractionated Inspired Oxygen 32; HCO3 ABG 37 mmol/L (22-26); Oxygen Saturation ABG 93 % (95-100); TCO2 ABG 38 mmol/L (21-31)
[2021-06-09 23:10] LABS: Hemoglobin A1C% w Est Avg Glu 5.9 % (4.0-6.0)
[2021-06-09 23:58] LABS: D Dimer 561 ng/mL (<230)
--- NOTE | 2021-06-09 23:58 | PC.NURSE ---
Evening Shift Note Patient with no void this shift. Bladder scanned by [employer] MANAGER and volume of greater than 600. Patient asleep and unable to wake to safely use bathroom. Per significant other patient is incontinent, brief is dry. Provider made aware and VORB for straight cath x1. teacher of gifted students RN Minerva and this RN straight cathed patient and 750cc of dark colored urine drained.
[2021-06-10] VITALS (9 sets, daily range): BP systolic 116–139; BP diastolic 73–85; PULSE 64–78; RESP 16–18; TEMP 36.3–36.7; O2SAT 92–96
[2021-06-10] MEDS: POTASSIUM CHLORIDE IN WATER 10 MEQ/100 ML PIGGYBACK 100 MEQ IV (00:32)
[2021-06-10] MEDS: PIPERACILLIN/TAZO 3.375 GM in SODIUM CHLORIDE 0.9% 100 ML 25 ML IV ×3 (02:03→18:17)
--- NOTE | 2021-06-10 04:17 | PC.NURSE ---
Addendum entered by Minerva Tadeo R.N. 06/10/21 04:38: Late entry: Patient's K riders were late due to not being started in ED which caused the order for IV Zosyn to be late as well. Pharmacy re-timed and rescheduled the medications and the doses have now been completed with the correct schedule remaining for the IV Zosyn. Original Note: Provider, Dr. Arias was notified at 2330 regarding patients initial dose of Amlodipine scheduled for 2244 that was not given by evening shift RN. Verbal orders were given to hold this dose and not give this dose.
[2021-06-10 05:33] LABS: Add Manual Diff / Slide Review NO; Basophils Absolute Auto 0 /uL (0-100); Basophils Percent Auto 0.3 % (0-2); Eosinophils Absolute Auto 0 /uL (0-450); Hematocrit 39.5 % (36-46); Hemoglobin 12.6 g/dL (12.0-16.0); Lymphocytes Absolute Auto 1000 /uL (1100-4500); Mean Corpuscular HGB Conc 31.9 % (30-36); Mean Corpuscular Hemoglobin 25.7 PG (26-34); Mean Corpuscular Volume 80.6 fL (80-100); Monocytes Absolute Auto 600 /uL (0-900); Monocytes Percent Auto 4.5 % (3-14); Neutrophils Absolute Auto 12000 /uL (1500-7000); Neutrophils Percent Auto 88.2 % (50-75); Platelet Count 219 X10^3/uL (150-400); Red Cell Distribution Width 15.5 % (11.6-14.8); White Blood Cell Count 13.6 X10^3/uL (4.5-11.0)
[2021-06-10 05:43] LABS: BUN Creatinine Ratio 22.6 (6-22); Blood Urea Nitrogen 14 mg/dL (7-17); Calcium 9.1 mg/dL (8.4-10.2); Carbon Dioxide 37 mmol/L (22-32); Chloride 89 mmol/L (98-107); Estimated Glomerular Filt Rate > 60.0 mL/min (>60); Glucose 122 mg/dL (80-110); HEMOLYSIS < 15 (0-50); Potassium 3.6 mmol/L (3.4-5.1); Sodium 128 mmol/L (137-145)
[2021-06-10 05:52] LABS: NT-proBNP (BNP-Adult 18+) 2870 pg/mL (<125)
[2021-06-10 05:54] LABS: Troponin I 0.037 ng/mL (0.01-0.034)
[2021-06-10] MEDS: SODIUM CHLORIDE 0.9% 1,000 ML 100 ML IV (10:53)
[2021-06-10] MEDS: ENOXAPARIN 80 MG/0.8 ML SYRINGE 70 MG SUBCUT ×2 (11:07→22:22)
[2021-06-10] MEDS: CITALOPRAM 10 MG TABLET 20 MG PO (11:12)
[2021-06-10] MEDS: CYANOCOBALAMIN (VITAMIN B-12) 500 MCG TABLET 1000 MCG PO ×2 (11:12→22:23)
[2021-06-10] MEDS: AMLODIPINE 5 MG TABLET 10 MG TUBE (11:13)
[2021-06-10] MEDS: CHOLECALCIFEROL (VITAMIN D3) 1,000 UNIT TABLET 2000 UNIT PO ×2 (11:13→22:22)
[2021-06-10] MEDS: MORPHINE IR 15 MG TABLET 30 MG PO ×2 (11:22→23:47)
--- NOTE | 2021-06-10 12:32 | CM.DANOTE ---
DCP: Case received, EMR reviewed and met with patient. Significant other/caregiver, Emre Dominguez, was also at bedside. Introduced self and role. Was able to obtain information regarding patient's baseline activity status at home prior to hospitalization. DCP assessment completed with information currently available. Patient is a 66 year old female who admitted yesterday evening to the care of the hospitalist team. PCP: Dr. Arraiga. Payer: confirmed: Medicare/Medicaid. Patient came to the hospital via private vehicle secondary to having some decreased oxygen sats and shortness of breath. Patient holds current diagnosis of pneumonia. Patient has history of aspiration pneumonia, she has a J. tube for feeding. Patient also is narcotic pain dependent. Met with patient and Emre, in the room. She was laying in bed, oxygen in place. Confirmed with her that she does not have home oxygen at baseline. She and Emre reside here in [place]. She has a walker for home use, and a wheel-chair as well. He is her primary caregiver, assists with her feeding, showers. She is not currently driving. P: DCP to continue to follow. Patient should be able to go home when she is medically stable. Bridget Wiseman RN/Overnight Houseperson Discharge Planning/Care Management CM Discharge Assessment Start: 06/10/21 12:30 Freq: Status: Active Protocol: Document 06/10/21 12:30 (Rec: 06/10/21 12:32 [id number]) Discharge Planning Assessment Assigned Workers Compensation Paralegal Bridget Wiseman RN/Overnight Houseperson Advance Directives? Yes Advance Directives on File No History Provided By Patient,Significant Other, Medical Record Prior Living Arrangements House Household Members caregiver Type of transporation used prior to Relies on Others admit Independent with ADL's Yes Is patient alert and oriented? Yes Needs Assistance With Bathing,Meal Prep,Managing Medications,Home Chores / Shopping Caregiver for Another No DME Already Rented / Owned Wheelchair,FWW / Walker Barriers to Discharge No Discharge Plan Home Transportation Arrangement Caregiver/significant other Referrals Initiated None needed Whiteboard Updated in Patient Room with Yes name and ext. # of Workers Compensation Paralegal Review Status In Process Next Review Type Continued Stay Review
--- NOTE | 2021-06-10 17:13 | P.PN_ITS ---
Subjective Subjective Date Patient Seen: 06/10/21 Time Patient Seen: 17:13 Interval history: Denies shortness of breath. Asking frequently for pain medications, irritable when not given. When getting pain medications she appears calm and comfortable, did desaturate on room air to 80s, when awake seemingly able to maintain oxygenation on room air. Exam Vital Signs (past 8 hours): - 06/10/21 11:00 06/10/21 16:00 Temperature 97.4 F L 97.3 F L Pulse Rate 78 78 Respiratory Rate 16 17 Blood Pressure 116/80 117/78 Pulse Oximetry 92 93 Oxygen Delivery Method Nasal Cannula Oxygen Flow Rate 2 Narrative Exam Narrative: GENERAL APPEARANCE: obese female, no acute distress. SKIN: Inspection of the skin reveals no rashes, ulcerations or petechiae. HEENT: Normocephalic atraumatic, extraocular muscles are intact, oropharynx is clear and mucous membranes are moist, neck is supple without adenopathy NECK: Supple and symmetric. There was no thyroid enlargement, and no tenderness, or masses were felt. CHEST: Normal AP diameter and normal contour without any kyphoscoliosis. LUNGS: Auscultation of the lungs revealed no wheezes, rhonchi, or rales. CARDIOVASCULAR: There was a regular rate and rhythm without any murmurs, gallops, rubs. Peripheral pulses were 2+ and symmetric. ABDOMEN: Soft and nontender with normal bowel sounds. No ascites was noted. gastic tube in place. MUSCULOSKELETAL: There was no tenderness or effusions noted. Muscle strength and tone were normal. EXTREMITIES: No cyanosis, clubbing or edema. NEUROLOGIC: no focal deficits. Slightly agitated when awake, falls asleep easily. Objective Labs Result Diagrams: 06/10/21 05:16 06/10/21 05:16 Labs: Laboratory Results - last 24 hr 06/09/21 06/09/21 06/09/21 17:55 18:00 18:00 WBC 24.3 H RBC 5.43 H Hgb 14.1 Hct 43.8 MCV 80.8 MCH 26.0 MCHC 32.2 RDW 15.3 H Plt Count 229 Neut % (Auto) 94.9 H Lymph % (Auto) 2.5 L [place] % (Auto) 2.6 L Eos % (Auto) 0.0 L Baso % (Auto) 0.0 Neut # (Auto) 28503 H Lymph # (Auto) 600 L [place] # (Auto) 600 Eos # (Auto) 0 Baso # (Auto) 0 D-Dimer ABG pH ABG pCO2 ABG pO2 ABG HCO3 ABG Total CO2 ABG O2 Saturation ABG Base Excess FiO2 Sodium 126 L Potassium 2.9 L Chloride 84 L Carbon Dioxide 36 H BUN 10 Creatinine 0.53 Estimated GFR > 60.0 BUN/Creatinine Ratio 18.9 Glucose 167 H Hemoglobin A1c Lactate Calcium 9.8 Total Bilirubin 0.9 AST 28 ALT 15 Alkaline Phosphatase 73 Total Creatine Kinase CK-MB (CK-2) CK-MB (CK-2) Rel Index Troponin I NT-Pro-B Natriuret Pep 6760 H Total Protein 7.8 Albumin 4.0 Globulin 3.8 Albumin/Globulin Ratio 1.1 Procalcitonin SARS-CoV-2 (PCR) Negative 06/09/21 06/09/21 06/09/21 18:00 18:00 18:00 WBC RBC Hgb Hct MCV MCH MCHC RDW Plt Count Neut % (Auto) Lymph % (Auto) [place] % (Auto) Eos % (Auto) Baso % (Auto) Neut # (Auto) Lymph # (Auto) [place] # (Auto) Eos # (Auto) Baso # (Auto) D-Dimer ABG pH ABG pCO2 ABG pO2 ABG HCO3 ABG Total CO2 ABG O2 Saturation ABG Base Excess FiO2 Sodium Potassium Chloride Carbon Dioxide BUN Creatinine Estimated GFR BUN/Creatinine Ratio Glucose Hemoglobin A1c Lactate 1.8 Calcium Total Bilirubin AST ALT Alkaline Phosphatase Total Creatine Kinase 45 CK-MB (CK-2) TNP CK-MB (CK-2) Rel Index TNP Troponin I 0.077 H NT-Pro-B Natriuret Pep Total Protein Albumin Globulin Albumin/Globulin Ratio Procalcitonin 0.24 SARS-CoV-2 (PCR) 06/09/21 06/09/21 06/09/21 18:00 20:38 23:40 WBC RBC Hgb Hct MCV MCH MCHC RDW Plt Count Neut % (Auto) Lymph % (Auto) [place] % (Auto) Eos % (Auto) Baso % (Auto) Neut # (Auto) Lymph # (Auto) [place] # (Auto) Eos # (Auto) Baso # (Auto) D-Dimer 561 H ABG pH 7.45 ABG pCO2 53.0 H ABG pO2 67 L ABG HCO3 37 H ABG Total CO2 38 H ABG O2 Saturation 93 L ABG Base Excess 13.0 H FiO2 32 Sodium Potassium Chloride Carbon Dioxide BUN Creatinine Estimated GFR BUN/Creatinine Ratio Glucose Hemoglobin A1c 5.9 Lactate Calcium Total Bilirubin AST ALT Alkaline Phosphatase Total Creatine Kinase CK-MB (CK-2) CK-MB (CK-2) Rel Index Troponin I NT-Pro-B Natriuret Pep Total Protein Albumin Globulin Albumin/Globulin Ratio Procalcitonin SARS-CoV-2 (PCR) 06/10/21 06/10/21 06/10/21 05:16 05:16 05:16 WBC 13.6 H RBC 4.90 Hgb 12.6 Hct 39.5 MCV 80.6 MCH 25.7 L MCHC 31.9 RDW 15.5 H Plt Count 219 Neut % (Auto) 88.2 H Lymph % (Auto) 7.0 L [place] % (Auto) 4.5 Eos % (Auto) 0.0 L Baso % (Auto) 0.3 Neut # (Auto) 66953 H Lymph # (Auto) 1000 L [place] # (Auto) 600 Eos # (Auto) 0 Baso # (Auto) 0 D-Dimer ABG pH ABG pCO2 ABG pO2 ABG HCO3 ABG Total CO2 ABG O2 Saturation ABG Base Excess FiO2 Sodium 128 L Potassium 3.6 Chloride 89 L Carbon Dioxide 37 H BUN 14 Creatinine 0.62 Estimated GFR > 60.0 BUN/Creatinine Ratio 22.6 H Glucose 122 H Hemoglobin A1c Lactate Calcium 9.1 Total Bilirubin AST ALT Alkaline Phosphatase Total Creatine Kinase CK-MB (CK-2) CK-MB (CK-2) Rel Index Troponin I 0.037 H NT-Pro-B Natriuret Pep Total Protein Albumin Globulin Albumin/Globulin Ratio Procalcitonin SARS-CoV-2 (PCR) 06/10/21 05:16 WBC RBC Hgb Hct MCV MCH MCHC RDW Plt Count Neut % (Auto) Lymph % (Auto) [place] % (Auto) Eos % (Auto) Baso % (Auto) Neut # (Auto) Lymph # (Auto) [place] # (Auto) Eos # (Auto) Baso # (Auto) D-Dimer ABG pH ABG pCO2 ABG pO2 ABG HCO3 ABG Total CO2 ABG O2 Saturation ABG Base Excess FiO2 Sodium Potassium Chloride Carbon Dioxide BUN Creatinine Estimated GFR BUN/Creatinine Ratio Glucose Hemoglobin A1c Lactate Calcium Total Bilirubin AST ALT Alkaline Phosphatase Total Creatine Kinase CK-MB (CK-2) CK-MB (CK-2) Rel Index Troponin I NT-Pro-B Natriuret Pep 2870 H Total Protein Albumin Globulin Albumin/Globulin Ratio Procalcitonin SARS-CoV-2 (PCR) [facility] Medical History (Updated 06/09/21 @ 20:22 by Nya Arias MD) Accident Chronic low back pain (01/07/06) Chronic narcotic dependence Depression Fusion of lumbar spine Hormone replacement therapy (postmenopausal) (07/03/05) Late eff spine/trunk fx (08/16/05) Unspecified essential hypertension (07/03/05) Surgical History (Updated 06/09/21 @ 20:22 by Nya Arias MD) H/O hysterectomy for benign disease History of cholecystectomy History of Mendez fundoplication Status post thoracic spinal fusion Status post-operative repair of hip fracture Family History (Updated 06/09/21 @ 20:19 by Nya Arias MD) Mother Alzheimer disease Father Pneumonia Social History household members: caregiver Smoking Status: Never smoker alcohol intake: never Assessment & Plan Assessment & Plan narrative: This is a 66 year old female with very rapid onset of LLL Aspiration Pneumonia, quite typical for chronic high-dose narcotic pain medication use.? Aspiration Pneumonia with acute hypoxic and hypercapnic respiratory failure, present on admission.? Active. -LLL infiltrate with history of aspiration and with negative COVID testing.? She is fully COVID immunized.? The white blood count is 24.3 making a PE unlikely. -a normal procalcitonin (0.24) in this situation is generally not expected with this degree of pneumonia.? Consider CHF/PE.?Improved oxygenation today. On therapeutic lovenox. Check V/q scan. -Levaquin started in the ED 06/09/21 -changed to Zosyn 3.375 mg IV q.6 hours will continue -blood cultures x2 are pending -continue oxygen and wean as tolerated. -suspect component of sedation / apnea due to obesity and opiate use. try and reduce opiates. Elevated BNP, troponin, present on admission.? Active. -BNP 6760 with troponin of 0.077 on admission.?Troponin improved on repeat. -no other signs of acute coronary syndrome or cardiomyopathy.? - EKG without ischemia, no chets pain. R/o PE as above. -TTE pending Hypokalemia, present on admission.? Active. -admission potassium of 2.9 -unclear etiology, likely related to J-tube feeding, 40 mg of potassium chloride IV is dosed in the emergency department Hyponatremia, present on admission.? Active -sodium of 126 on admission -unclear etiology, likely related to J-tube feeding, continue IV normal saline at 100 mL/hr -improving. Hyperglycemia, present on admission.? Active. -admit blood sugar 167. -follow blood sugars b.i.d. A1c 5.9% Anxiety/depression, present on admission.? Active.? -continue citalopram -cautiously resume diazepam with close attention to over sedation/respiratory suppression. Chronic Low Back Pain, present on admission.? Active. -continue fentanyl patch 200 mcg q.72 hours (usually 250) -continue morphine 30 mg per feeding tube q.6 hours -continue carisoprodol -hold opioid and notify physician if oversedated at scheduled times. Opiate Pain Dependency, present on admission. Active. -patient has a history of insisting on dosing these high-dose opioids in spite of obvious over-sedation as noted by nursing staff.? -notify physician if opioids are held for over-sedation each time this occurs. -dosing her medications safely (at these very high opioid doses) is a challenge and will require close team work between nursing and medical staff. Tube feeding, present on admission.? Stable.? 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 Lovenox for DVT prevention Time Spent With Patient Critical Care time: I spent a total of [] minutes of critical care time on this patient's care today; this time is exclusive of procedural time.
[2021-06-10] MEDS: CYCLOSPORINE EYE-BOTH (22:23)
--- NOTE | 2021-06-10 23:02 | DI.ECHO.S_ITS ---
[facility] +---------+ [facility] +---------+ : : [address] [place] : : : : [id number] : : : : Phone: [phone]+ Echocardiogram Report + + :Name: ANGÉLICA JAY Study Date: 06/10/2021 Height: 60 in : :[facility] ReadingLocation: Weight: 160 lb: : Gender: Female BSA: 1.7 m2 : :: 1955 Age: 66 yrs BP: 92/76 mmHg: :Reason For Study: NSTEMI : :Ordering Physician: Stephani : :Hospitalist Performed By: Ashlee Rogel : :Referring: STIVEN ELLIOTT E : + + Interpretation Summary Normal sinus rhythm. Normal LV size; borderline concentric LVH. Normal wall motion and left ventricular systolic function. Ejection fraction is estimated at 60-65%. Mildly dilated right ventricle. Severely dilated right atrium and mildly dilated left atrium. No significant valvular abnormalities. Estimated pulmonary artery systolic pressure is 49 mmHg assuming right atrial pressure of 10 mmHg. No prior study available for comparison. Procedure: A two-dimensional transthoracic echocardiogram with color flow and Doppler was performed. The patient had an echocardiogram, but there is no comparison study available. The patient was in normal sinus rhythm during the exam. Left Ventricle: The left ventricular cavity is small. Left ventricular wall thickness is borderline increased. The ejection fraction is estimated to be 60-65%. There are no obvious focal wall motion abnormalities noted but poor endocardial definition reduces the sensitivity for the detection of such. Diastolic parameters suggest a pseudonormalization pattern, consistent with probable elevated filling pressures. Right Ventricle: The right ventricle is mildly dilated. The right ventricular systolic function is normal. Atria: The left atrium is mildly dilated. The right atrium is severely dilated. Mitral Valve: The mitral valve leaflets appear mildly thickened, but open well. There is no mitral regurgitation noted. Aortic Valve: The aortic valve is normal in structure and function. No aortic regurgitation is present. Tricuspid Valve: The tricuspid valve leaflets are thin and pliable. There is trace tricuspid regurgitation. Right ventricular systolic pressure is estimated to be 39 mmHg plus the clinically estimated CVP which cannot be estimated on this exam. Pulmonic Valve: The pulmonic valve leaflets are thin and pliable; valve motion is normal. There is a trace or physiologic amount of pulmonic regurgitation. Great Vessels: The aortic root is normal size. The ascending aorta is normal in size. The inferior vena cava was not visualized. Pericardium/ Pleura There is a trivial pericardial effusion noted. MMode/2D Measurements & Calculations LVIDd: 3.7 cm LVOT diam: 1.9 cm LVIDs: 2.0 cm Ao root diam: 3.0 cm FS: 45.5 % asc Aorta Diam: 3.1 cm EPSS: 0.20 cm IVSd: 1.1 cm LVPWd: 0.96 cm LV danielson. diameter/BSA (cm/m^2): 2.2 LV sys. diameter/BSA (cm/m^2): 1.2 LA A2 area: 19.2 cm2 RA long axis: 5.6 cm LA A4 area: 23.2 cm2 RA area: 23.1 cm2 LA length (vol): 5.7 cm RA vol: 80.0 ml LA vol: 65.9 ml RA : 47.1 ml/m2 LA vol index: 38.8 ml/m2 TAPSE: 2.2 cm Doppler Measurements & Calculations Ao V2 max: 143.4 cm/sec LVOT Max Iraj: 106.2 cm/sec Ao V2 mean: 100.6 cm/sec LV V1 max P.5 mmHg Ao max P.2 mmHg LV V1 VTI: 19.2 cm Ao mean P.3 mmHg EDILIA(I,D): 2.2 cm2 Ao V2 VTI: 24.5 cm EDILIA(V,D): 2.1 cm2 sev ratio: 0.78 EDILIA indexed to BSA (cm^2/m^2): 1.3 MV E max iraj: 79.5 cm/sec TR max iraj: 313.2 cm/sec MV A max iraj: 66.3 cm/sec TR max P.2 mmHg MV E/A: 1.2 PA V2 max: 98.2 cm/sec Med Peak E' Iraj: 3.6 cm/sec PA V2 mean: 61.0 cm/sec E/E' med: 22.3 PA mean P.7 mmHg Lat Peak E' Iraj: 4.8 cm/sec PA pr(Accel): 58.4 mmHg E/E' lat: 16.6 E/e' average: 19.5 MV dec time: 0.19 sec SV(LVOT): 54.8 ml Electronically signed by: Nori Shah M.D. on Reading Physician:06/10/2021 05:18 PM
[2021-06-11] MEDS: PIPERACILLIN/TAZO 3.375 GM in SODIUM CHLORIDE 0.9% 100 ML 25 ML IV ×2 (04:58→11:53)
[2021-06-11] MEDS: MORPHINE IR 15 MG TABLET 30 MG PO (05:18)
[2021-06-11 05:38] VITALS: BP 135/78; PULSE 71; RESP 14; TEMP 36.6; O2SAT 93
[2021-06-11] MEDS: SODIUM CHLORIDE 0.9% 1,000 ML 100 ML IV (07:30)
[2021-06-11 08:05] VITALS: BP 122/77; PULSE 68; RESP 14; TEMP 36.7; O2SAT 90
[2021-06-11] MEDS: CHOLECALCIFEROL (VITAMIN D3) 1,000 UNIT TABLET 2000 UNIT PO (08:27)
[2021-06-11] MEDS: ENOXAPARIN 80 MG/0.8 ML SYRINGE 70 MG SUBCUT (08:27)
[2021-06-11] MEDS: CITALOPRAM 10 MG TABLET 20 MG PO (08:27)
[2021-06-11] MEDS: AMLODIPINE 5 MG TABLET 10 MG TUBE (08:27)
[2021-06-11] MEDS: CYCLOSPORINE EYE-BOTH (08:32)
[2021-06-11] MEDS: CYANOCOBALAMIN (VITAMIN B-12) 500 MCG TABLET 1000 MCG PO (08:32)
--- NOTE | 2021-06-11 08:39 | DI.CT.S_ITS ---
PROCEDURE: CT ANGIO CHEST PE PROTOCOL INDICATIONS: Low O2 sats TECHNIQUE: After the administration of intravenous contrast, 2 mm thick sections acquired from the pulmonary apices to the posterior costophrenic angles. 3-dimensional maximum intensity projection (MIP) coronal and sagittal reformats were then acquired through the thorax. For radiation dose reduction, the following was used: automated exposure control, adjustment of mA and/or kV according to patient size. COMPARISON: [facility], CR, XR CHEST 1V, 06/09/2021, 18:17. FINDINGS: Image quality: Excellent. Lungs and pleura: Confluent consolidation and airspace opacities in the lungs, worse on the left are most consistent with a diffuse infectious process however congestive heart failure could also cause images. No pleural effusions or pneumothorax. Central and peripheral airways are patent and normal in caliber. Mediastinum: Heart size is normal. No pericardial effusion. No mediastinal adenopathy by size criteria. Thoracic aorta and central pulmonary arteries are normal in size. Esophagus is normal in caliber. No hiatal hernia. Bones and chest wall: No suspicious bony lesions. No vertebral body compression fractures. No axillary or supraclavicular adenopathy by size criteria. Thyroid gland is normal. Abdomen: Limited visualization of the upper abdomen shows no acute abnormality. IMPRESSION: 1. No pulmonary embolism. 2. Confluent consolidation and airspace opacities worse on the left likely secondary to a diffuse infectious process, however CHF could also cause this appearance. Dictated by: Bruno Tineo M.D. on 06/11/2021 at 10:54 Approved by: Bruno Tineo M.D. on 06/11/2021 at 11:01
[2021-06-11] MEDS: diphenhydrAMINE 25 MG TABLET 50 MG PO (09:26)
[2021-06-11] MEDS: HYDROCORTISONE 100 MG/2 ML VIAL IV (09:26)
--- NOTE | 2021-06-11 09:33 | PC.NURSE ---
Patient premedicated for scan, patient 86-89% on 2L while at rest, increased O2 to 3L NC while patient sleeps
[2021-06-11 11:00] VITALS: O2SAT 92
[2021-06-11 11:30] VITALS: BP 129/87; PULSE 68; RESP 18; TEMP 36.6; O2SAT 94
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
== END 2021-06-11 17:18 | disposition home or self-care (01) | DRG 177 ==
LOC: ED 19:09 → AC 19:18
PROVIDERS: Emergency Medicine; Admitting Provider Family Medicine; Emergency Provider Emergency Medicine; Family Provider Internal Medicine; PCP Internal Medicine; Referring Provider Emergency Medicine; Visit Provider Family Medicine
DX: J69.0 Pneumonitis due to inhalation of food and vomit (principal); J96.01 Acute respiratory failure with hypoxia; J96.02 Acute respiratory failure with hypercapnia; F11.20 Opioid dependence, uncomplicated; E87.1 Hypo-osmolality and hyponatremia; T40.415A Adverse effect of fentanyl or fentanyl analogs, initial encounter; E87.6 Hypokalemia; Z93.4 Other artificial openings of gastrointestinal tract status; R40.4 Transient alteration of awareness; R79.89 Other specified abnormal findings of blood chemistry; F41.9 Anxiety disorder, unspecified; F32.A Depression, unspecified; G89.29 Other chronic pain; M54.50 Low back pain, unspecified; I27.20 Pulmonary hypertension, unspecified; Z20.822 Contact with and (suspected) exposure to COVID-19
CPT/HCPCS: 36415; 36600; 71045; 71275; 80048; 80053; 82550; 82805; 82962; 83036; 83605; 83880; 84145; 84484; 85025; 85379; 87040; 87635; 93005; 93010; 93306; 94618; 94760; 94762; 99284; C9803; A9270; J1650; J1720; J1956; J2543; Q9967

== ENCOUNTER 2021-10-18 09:14 | Inpatient (IN) | payer MEDICARE, MEDICAID, SELFPAY ==
[2021-06-09 20:15] VITALS: BMI 31.2
[2021-10-18] VITALS (13 sets, daily range): BP systolic 103–136; BP diastolic 54–82; PULSE 64–79; RESP 17–25; TEMP 36.3–38.2; O2SAT 88–99; BMI 33.4; BMI 36.6
--- NOTE | 2021-10-18 09:28 | DI.RAD.S_ITS ---
PROCEDURE: XR CHEST 1V INDICATIONS: suspected sepsis TECHNIQUE: One view of the chest was acquired. COMPARISON: [facility], CT, CT ANGIO CHEST PE PROTOCOL, 06/11/2021, 10:33. [facility], CR, XR CHEST 1V, 06/09/2021, 18:17. FINDINGS: The patient is rotated to the left for this study. This evaluation is limited, secondary to the patient's inability to fully cooperate with the examination. Surgical changes and devices: Cholecystectomy clips are faintly seen. Lungs and pleura: Lung volumes are low. Poorly defined opacities can be seen involving both lower lungs, left worse than right. There is a small left-sided pleural effusion. No pneumothorax is detected. Mediastinum: Mediastinal contours appear normal. Heart size is normal. Bones and chest wall: No suspicious bony lesions. Age-appropriate bony degenerative changes are seen. Overlying soft tissues appear unremarkable. IMPRESSION: Poorly defined opacities are seen at both lung bases, left worse than right. Overall, the infiltrates appear worse than on the prior examination. Likely left-sided pleural effusion. Limited study demonstrating low lung volumes. Dictated by: Arie Arechiga M.D. on 10/18/2021 at 9:40 Approved by: Arie Arechiga M.D. on 10/18/2021 at 9:43
[2021-10-18 09:53] LABS: Add Manual Diff / Slide Review NO; Basophils Absolute Auto 0 /uL (0-100); Basophils Percent Auto 0.1 % (0-2); Eosinophils Absolute Auto 0 /uL (0-450); Hematocrit 40.7 % (36-46); Hemoglobin 13.4 g/dL (12.0-16.0); Lymphocytes Absolute Auto 300 /uL (1100-4500); Lymphocytes Percent Auto 2.9 % (25-40); Mean Corpuscular HGB Conc 32.9 % (30-36); Mean Corpuscular Hemoglobin 27.3 PG (26-34); Mean Corpuscular Volume 82.8 fL (80-100); Monocytes Absolute Auto 300 /uL (0-900); Monocytes Percent Auto 2.4 % (3-14); Neutrophils Absolute Auto 11100 /uL (1500-7000); Neutrophils Percent Auto 94.6 % (50-75); Platelet Count 205 X10^3/uL (150-400); Red Blood Cell Count 4.92 X10^6/uL (4.0-5.2); Red Cell Distribution Width 13.2 % (11.6-14.8); White Blood Cell Count 11.7 X10^3/uL (4.5-11.0)
[2021-10-18] MEDS: SODIUM CHLORIDE 0.9% 1,000 ML 1000 ML IV (09:54)
--- NOTE | 2021-10-18 09:57 | ED_ITS ---
HPI - SOB/Dyspnea General Chief Complaint: Shortness of Breath/Dyspnea Stated Complaint: SOB Time Seen by Provider: 10/18/21 09:41 Source: family Mode of arrival: Wheelchair Limitations: altered mental status History of Present Illness HPI Narrative: Patient here for possible aspiration pneumonia. Patient brought by life partner. Concerning for possible aspiration pneumonia. Partner has notice some vomit on her sugar this morning. Has history of aspiration pneumonia admission here last fall. Patient has a feeding tube secondary to complications from Mendez fundoplication years ago. Is on as needed oxygen at home. Partner and noted that she appeared to be short of breath and placed on 3 L nasal cannula. She did receive some home medications through feeding tube prior to arrival including Phenergan. Patient is somnolent but is arousable by voice. Follows commands. Fever noted. Related Data Home Medications Medication Instructions Recorded Confirmed CHOLECALCIFEROL (VITAMIN D) 2,000 iu TUBE BID #0 09/04/12 10/18/21 albuterol sulfate 90 mcg/actuation 2 puff INH Q4HP PRN #8.5 gm 09/04/12 10/18/21 aerosol inhaler (Proventil HFA) carisoprodol 350 mg tablet 1 tab TUBE Q4H PRN #0 09/04/12 10/18/21 diazepam 5 mg tablet 10 mg PO Q8H PRN #0 09/04/12 10/18/21 fentanyl 100 mcg/hr transdermal 200 mcg TOPICAL Q72H #0 09/04/12 10/18/21 patch omeprazole 40 mg-sodium 2 pkt FEEDING TUBE BID #0 09/04/12 10/18/21 bicarbonate 1,680 mg oral packet (Zegerid) polyethylene glycol 3350 17 17 gm FEEDING TUBE PRN PRN #0 09/04/12 10/18/21 gram/dose oral powder DIPHENOXYLATE/ATROPINE SULFATE 1 - 2 tab FEEDING TUBE QIDP PRN #0 09/07/12 10/18/21 (DIPHENOXYLATE/ATROPINE) albuterol sulfate 3 ml INH PRN PRN #0 09/07/12 10/18/21 citalopram 10 mg/5 mL oral solution 20 mg TUBE QDAY #0 09/07/12 10/18/21 ondansetron HCl 4 mg/5 mL oral 1 - 2 tsp TUBE Q6HP PRN #0 09/07/12 10/18/21 solution (Zofran) promethazine 25 mg tablet 1 - 2 tab TUBE Q6HP PRN #0 09/07/12 10/18/21 Ketoconazole 1 glenis TOPICAL PRN PRN #0 12/23/16 10/18/21 amlodipine 10 mg tablet 10 mg FEEDING TUBE QDAY #0 12/23/16 10/18/21 cyclosporine 0.05 % eye drops in a 1 drp/day EYE-BOTH BID #0 12/23/16 10/18/21 dropperette (Restasis) desonide 0.05 % lotion 1 glenis TOPICAL PRN PRN #0 12/23/16 10/18/21 potassium chloride 20 mEq/15 mL 5.625 ml FEEDING TUBE DAILY #0 12/23/16 10/18/21 oral liquid diphenhydramine HCl 25 mg capsule 1 - 2 tab FEEDING TUBE Q4-6H PRN 05/24/18 10/18/21 (Benadryl) mupirocin 2 % topical ointment 1 applic TOPICAL TID 05/24/18 10/18/21 nut.tx.impaired digest fxn 0.068 750 ml FEEDING TUBE QPM 05/24/18 10/18/21 gram-1.5 kcal/mL oral liquid (Peptamen 1.5) cyanocobalamin (vitamin B-12) 1,000 mcg PO BID 06/09/21 10/18/21 1,000 mcg tablet morphine 10 mg/5 mL oral solution 30 mg FEEDING TUBE Q6H PRN 06/09/21 10/18/21 naloxone 4 mg/actuation nasal 4 mg INTRANASAL Q3M PRN 06/09/21 10/18/21 spray (Narcan) sennosides 8.6 mg tablet (senna) 8.6 mg PO BEDTIME PRN 06/09/21 10/18/21 triamcinolone acetonide 0.5 % 1 applic TOPICAL BID PRN 06/09/21 10/18/21 topical cream Allergies Allergy/AdvReac Type Severity Reaction Status Date / Time latex [LATEX] Allergy Mild RASH Verified 10/18/21 09:29 metoclopramide [From REGLAN] Allergy Mild TREMMORS Verified 10/18/21 09:29 Sulfa (Sulfonamide Allergy Mild RASH Verified 10/18/21 09:29 Antibiotics) [SULFA (SULFONAMIDE ANTIBIOTICS)] Iodinated Contrast Media AdvReac Mild Hives Verified 10/18/21 09:29 Review of Systems Review of Systems Narrative: GENERAL: Denies chills, fatigue, malaise, positive for fever, negative sweats. HEENT: Denies sinus pain, ear pain, sore throat RESPIRATORY: Positive dyspnea, negative cough CARDIOVASCULAR: Denies chest pain, palpitations GASTROINTESTINAL: Denies nausea, positive vomiting, negative abdominal pain : Denies dysuria, frequency, hematuria MUSCULOSKELETAL: denies muscle or bony pain SKIN: Denies rash, skin lesions NEUROLOGIC: Denies weakness, numbness ROS Unobtainable: All systems reviewed & are unremarkable except as noted in HPI and below Patient History Medical History Accident Chronic low back pain (01/07/06) Chronic narcotic dependence Depression Fusion of lumbar spine Hormone replacement therapy (postmenopausal) (07/03/05) Late eff spine/trunk fx (08/16/05) Unspecified essential hypertension (07/03/05) Surgical History H/O hysterectomy for benign disease History of cholecystectomy History of Mendez fundoplication Status post thoracic spinal fusion Status post-operative repair of hip fracture Family History Mother Alzheimer disease Father Pneumonia Social History household members: caregiver Smoking Status: Never smoker alcohol intake: never Smoking Status: Never smoker alcohol intake frequency: holidays/special occasions only Substance Use Type: does not use Exam Narrative Exam Narrative: GENERAL: in no distress, not toxic not dyspneic, is somnolent but is arousable to voice and does follow commands. HEAD: Normocephalic. EYES: Pupils equal round No scleral icterus. NECK: Trachea midline. CARDIOVASCULAR: Regular rate and rhythm without murmurs RESPIRATORY: Coarse lung sounds on right side. In no respiratory distress. Clear lung sounds on the left. GASTROINTESTINAL: Abdomen soft, non-tender EXTREMITIES: No gross deformities. BACK: No flank tenderness. NEURO: Awake and alert.. SKIN: Warm and dry PSYCH: Not anxious, is cooperative Initial Vital Signs Initial Vital Signs: Vital Signs Temperature 100.8 F H 10/18/21 09:15 Pulse Rate 77 10/18/21 09:15 Respiratory Rate 22 10/18/21 09:15 Blood Pressure 129/67 10/18/21 09:15 Pulse Oximetry 88 L 10/18/21 09:15 Course Course Course Narrative: No new issues during course of stay Orders Ordered: Albuterol (Albuterol 2.5 Mg/3 Ml Neb (Adult)) 2.5 mg INH [id number] [facility] Last Admin: 10/19/21 07:48 Dose: Not Given Documented by: TOMAS Albuterol (Albuterol 2.5 Mg/3 Ml Neb (Adult)) 2.5 mg INH [id number] PRN PRN Reason: Shortness Of Breath Amlodipine Besylate (Amlodipine 5 Mg Tablet) 10 mg TUBE DAILY [facility] Last Admin: 10/19/21 08:10 Dose: 10 mg Documented by: GARIMA Citalopram Hydrobromide (Citalopram 10 Mg Tablet) 20 mg TUBE DAILY [facility] Last Admin: 10/19/21 08:10 Dose: 20 mg Documented by: GARIMA Enoxaparin Sodium (Enoxaparin 40 Mg/0.4 Ml Syringe) 40 mg SUBCUT DAILY [facility] Last Admin: 10/19/21 08:11 Dose: 40 mg Documented by: GARIMA Piperacillin Sod/Tazobactam (Sod 3.375 gm/ Sodium Chloride) 100 mls @ 25 mls/hr IV Q8H [facility] Last Infusion: 10/19/21 08:02 Dose: 0 mls/hr Documented by: Admin: 10/19/21 04:01 Dose: 25 mls/hr Documented by: Infusion: 10/19/21 01:07 Dose: 0 mls/hr Documented by: Admin: 10/18/21 20:26 Dose: 25 mls/hr Documented by: Infusion: 10/18/21 17:42 Dose: 25 mls/hr Documented by: Admin: 10/18/21 13:42 Dose: 25 mls/hr Documented by: GARIMA Morphine Sulfate (Morphine 10 Mg/0.5 Ml Oral Syringe) 30 mg PO Q6HR PRN PRN Reason: Pain, Moderate (4-6) Last Admin: 10/19/21 05:16 Dose: 30 mg Documented by: Admin: 10/18/21 22:14 Dose: 30 mg Documented by: Admin: 10/18/21 14:29 Dose: 30 mg Documented by: GARIMA Naloxone HCl (Naloxone 0.4 Mg/Ml Vial) 0.2 mg IV Q2MIN PRN PRN Reason: Opiate Reversal Ondansetron HCl (Ondansetron 4 Mg/2 Ml Inj) 4 mg IV Q8HR PRN PRN Reason: Nausea And Vomiting Last Admin: 10/18/21 14:30 Dose: 4 mg Documented by: GARIMA Pantoprazole Sodium (Pantoprazole 40 Mg Vial) 40 mg TUBE BID [facility] Last Admin: 10/19/21 08:10 Dose: 40 mg Documented by: Admin: 10/18/21 20:25 Dose: 40 mg Documented by: HENNY Polyethylene Glycol (Polyethylene Glycol 3350 17 Gm Powd.Pack) 17 gm TUBE DAILY PRN PRN Reason: constipation Discontinued Medications Acetaminophen (Acetaminophen 650 Mg Supp) 650 mg ND NOW ONE Stop: 10/18/21 09:58 Last Admin: 10/18/21 10:05 Dose: 650 mg Documented by: RAYMOND Fentanyl (Fentanyl 100 Mcg/Patch) 100 mcg TOP Q72H [facility] Last Admin: 10/18/21 17:10 Dose: Not Given Documented by: TOMAS Sodium Chloride (Normal Saline 0.9%) 1,000 mls @ 1,000 mls/hr IV BOLUS ONE Stop: 10/18/21 10:27 Last Infusion: 10/18/21 11:15 Dose: 0 mls/hr Documented by: Admin: 10/18/21 09:54 Dose: 1,000 mls/hr Documented by: RAYMOND Ceftriaxone Sodium 2,000 mg/ (Sodium Chloride) 100 mls @ 200 mls/hr IV NOW ONE Stop: 10/18/21 09:57 Last Infusion: 10/18/21 11:15 Dose: 0 mls/hr Documented by: Admin: 10/18/21 10:12 Dose: 200 mls/hr Documented by: RAYMOND Metronidazole (Flagyl) 500 mg in 100 mls @ 100 mls/hr IV NOW ONE Stop: 10/18/21 10:55 Last Infusion: 10/18/21 13:33 Dose: 0 mls/hr Documented by: Infusion: 10/18/21 12:00 Dose: 100 mls/hr Documented by: Admin: 10/18/21 11:03 Dose: 100 mls/hr Documented by: RAYMOND Sodium Chloride (Normal Saline 0.9%) 1,000 mls @ 1,000 mls/hr IV BOLUS ONE Stop: 10/18/21 12:05 Last Admin: 10/18/21 13:33 Dose: Not Given Documented by: TOMAS Sodium Chloride (Normal Saline 0.9%) 1,000 mls @ 125 mls/hr IV CONT SHIMON Last Admin: 10/19/21 05:15 Dose: 125 mls/hr Documented by: Infusion: 10/19/21 04:23 Dose: 125 mls/hr Documented by: Admin: 10/18/21 20:23 Dose: 125 mls/hr Documented by: Infusion: 10/18/21 20:23 Dose: 125 mls/hr Documented by: Admin: 10/18/21 13:43 Dose: 125 mls/hr Documented by: GARIMA Potassium Chloride (Potassium Chloride 20 Meq/15 Ml Udc) 40 meq TUBE NOW ONE Stop: 10/18/21 11:59 Last Admin: 10/18/21 13:43 Dose: 40 meq Documented by: GARIMA Reevaluation(s) Reevaluation #1: Reviewed results with patient and life partner. Agree for admit. Time: 11:08 Consultations Consultation #1: Spoke with hospitalist, Dr. Guevara. Will admit Time: 11:27 Vital Signs Vital signs: Vital Signs - 8 hr 10/18/21 09:15 10/18/21 09:28 10/18/21 09:30 Temperature 100.8 F H Pulse Rate 77 75 74 Respiratory Rate 22 25 H 24 Blood Pressure 129/67 Pulse Oximetry 88 L 93 95 10/18/21 09:38 10/18/21 10:00 10/18/21 10:12 Temperature Pulse Rate 75 75 73 Respiratory Rate 23 22 21 Blood Pressure 133/72 122/82 Pulse Oximetry 92 94 94 10/18/21 10:30 10/18/21 11:00 Temperature Pulse Rate 71 79 Respiratory Rate 21 19 Blood Pressure 127/76 136/76 Pulse Oximetry 96 99 MDM - SOB/Dyspnea Differential Diagnosis Differential diagnosis: Likely community acquired pneumonia and other (Aspiration pneumonia) Lab Data Result diagrams: 10/19/21 04:25 10/19/21 04:25 Labs: Lab Results 10/18/21 10/18/21 10/18/21 Range/Units 09:38 09:38 09:38 WBC 11.7 H (4.5-11.0) X10^3/uL RBC 4.92 (4.0-5.2) X10^6/uL Hgb 13.4 (12.0-16.0) g/dL Hct 40.7 (36-46) % MCV 82.8 (80-100) fL MCH 27.3 (26-34) PG MCHC 32.9 (30-36) % RDW 13.2 (11.6-14.8) % Plt Count 205 (150-400) X10^3/uL Neut % (Auto) 94.6 H (50-75) % Lymph % (Auto) 2.9 L (25-40) % [place] % (Auto) 2.4 L (3-14) % Eos % (Auto) 0.0 L (2-4) % Baso % (Auto) 0.1 (0-2) % Neut # (Auto) 08204 H (3612-5128) /uL Lymph # (Auto) 300 L (0385-4309) /uL [place] # (Auto) 300 (0-900) /uL Eos # (Auto) 0 (0-450) /uL Baso # (Auto) 0 (0-100) /uL PT 11.6 (10.1-12.7) SECONDS INR 1.0 (0.9-1.3) APTT 28 (26.4-36.2) SECONDS Sodium 127 L (137-145) mmol/L Potassium 2.8 L (3.4-5.1) mmol/L Chloride 88 L (98-107) mmol/L Carbon Dioxide 34 H (22-32) mmol/L BUN 7 (7-17) mg/dL Creatinine 0.48 L (0.52-1.04) mg/dL Estimated GFR > 60.0 (>60) mL/min BUN/Creatinine Ratio 14.6 (6-22) Glucose 123 H (80-110) mg/dL Lactate (0.7-2.1) mmol/L Calcium 9.2 (8.4-10.2) mg/dL Total Bilirubin 0.9 (0.2-1.3) mg/dL AST 29 (14-36) IU/L ALT 17 (<35) IU/L Alkaline Phosphatase 88 (38-126) U/L Total Protein 7.9 (6.3-8.2) g/dL Albumin 4.2 (3.5-5.0) g/dL Globulin 3.7 (1.7-4.1) g/dL Albumin/Globulin Ratio 1.1 (1.0-2.8) Lipase 19 L (23-300) U/L Procalcitonin 1.08 H (<0.5) ng/mL Urine Color Urine Appearance Urine pH (4.5-8.0) Ur Specific [place] (1.000-1.035) Urine Protein (Negative) Urine Glucose (UA) (Negative) g/dL Urine Ketones (NEGATIVE) Urine Occult Blood (Negative) Urine Nitrate (Negative) Urine Bilirubin (NEGATIVE) Urine Urobilinogen (0.2) E.U./dL Ur Leukocyte Esterase (NEGATIVE) Urine RBC (0-5/HPF) Urine WBC (0-5/HPF) Ur Squamous Epith Cells (0-5/HPF) Urine Bacteria (None) Ur Culture Indicated? SARS-CoV-2 (PCR) (Negative) 10/18/21 10/18/21 10/18/21 Range/Units 10:01 10:10 10:55 WBC (4.5-11.0) X10^3/uL RBC (4.0-5.2) X10^6/uL Hgb (12.0-16.0) g/dL Hct (36-46) % MCV (80-100) fL MCH (26-34) PG MCHC (30-36) % RDW (11.6-14.8) % Plt Count (150-400) X10^3/uL Neut % (Auto) (50-75) % Lymph % (Auto) (25-40) % [place] % (Auto) (3-14) % Eos % (Auto) (2-4) % Baso % (Auto) (0-2) % Neut # (Auto) (0924-9396) /uL Lymph # (Auto) (2564-5654) /uL [place] # (Auto) (0-900) /uL Eos # (Auto) (0-450) /uL Baso # (Auto) (0-100) /uL PT (10.1-12.7) SECONDS INR (0.9-1.3) APTT (26.4-36.2) SECONDS Sodium (137-145) mmol/L Potassium (3.4-5.1) mmol/L Chloride (98-107) mmol/L Carbon Dioxide (22-32) mmol/L BUN (7-17) mg/dL Creatinine (0.52-1.04) mg/dL Estimated GFR (>60) mL/min BUN/Creatinine Ratio (6-22) Glucose (80-110) mg/dL Lactate 2.8 H (0.7-2.1) mmol/L Calcium (8.4-10.2) mg/dL Total Bilirubin (0.2-1.3) mg/dL AST (14-36) IU/L ALT (<35) IU/L Alkaline Phosphatase (38-126) U/L Total Protein (6.3-8.2) g/dL Albumin (3.5-5.0) g/dL Globulin (1.7-4.1) g/dL Albumin/Globulin Ratio (1.0-2.8) Lipase (23-300) U/L Procalcitonin (<0.5) ng/mL Urine Color Yellow Urine Appearance Clear Urine pH 7.0 (4.5-8.0) Ur Specific [place] <=1.005 (1.000-1.035) Urine Protein Negative (Negative) Urine Glucose (UA) Negative (Negative) g/dL Urine Ketones Negative (NEGATIVE) Urine Occult Blood Negative (Negative) Urine Nitrate Negative (Negative) Urine Bilirubin Negative (NEGATIVE) Urine Urobilinogen 0.2 (0.2) E.U./dL Ur Leukocyte Esterase Negative (NEGATIVE) Urine RBC 0-1/hpf (0-5/HPF) Urine WBC None seen (0-5/HPF) Ur Squamous Epith Cells None seen (0-5/HPF) Urine Bacteria None seen (None) Ur Culture Indicated? Cult not indicated SARS-CoV-2 (PCR) Negative (Negative) Imaging Data Chest x-ray: Radiologist's Impression: [address] [address] XRay Report Signed Patient: Rodriguez Ospina MR#: [id number] : 1955 Acct:[id number] Age/Sex: 66 / F Date of Service: 10/18/21 Loc: ED Accession Number: [id number] ?? Procedure: XR chest 1V Ordering Provider: Merritt Chen MD PROCEDURE:? XR CHEST 1V ? INDICATIONS:? suspected sepsis ? TECHNIQUE:? One view of the chest was acquired.? ? COMPARISON:? [facility], CT, CT ANGIO CHEST PE PROTOCOL, 06/11/2021, 10:33.? [facility], CR, XR CHEST 1V, 06/09/2021, 18:17. ? FINDINGS:? The patient is rotated to the left for this study. This evaluation is limited, secondary to the patient's inability to fully cooperate with the examination.? ? Surgical changes and devices:? Cholecystectomy clips are faintly seen. ? Lungs and pleura:? Lung volumes are low.? Poorly defined opacities can be seen involving both lower lungs, left worse than right.? There is a small left-sided pleural effusion.? No pneumothorax is detected. ? Mediastinum:? Mediastinal contours appear normal.? Heart size is normal.? ? Bones and chest wall:? No suspicious bony lesions.? Age-appropriate bony degenerative changes are seen. ? Overlying soft tissues appear unremarkable.? ? ? IMPRESSION:? ? Poorly defined opacities are seen at both lung bases, left worse than right.? Overall, the infiltrates appear worse than on the prior examination. ? Likely left-sided pleural effusion. ? Limited study demonstrating low lung volumes. ? Dictated by: Arie Arechiga M.D. on 10/18/2021 at 9:40 ? ? Approved by: Arie Arechiga M.D. on 10/18/2021 at 9:43 ? MDM Narrative Medical decision making narrative: Appropriate med. Requiring has supple oxygen. Likely aspiration pneumonia. Antibiotics and cultures completed. Lactic acid and procalcitonin reviewed. IV fluids started. Patient not toxic. Tylenol for fever given. Discharge Plan Departure Patient Disposition: Admitted As Inpatient Clinical Impression: Aspiration pneumonia Admit Date/Time: 10/18/21 11:32 Admit Provider: Timbo Guevara
[2021-10-18 10:04] LABS: Prothrombin Time 11.6 SECONDS (10.1-12.7)
[2021-10-18] MEDS: ACETAMINOPHEN 650 MG SUPP PR (10:05)
[2021-10-18 10:06] LABS: PTT Partial Thromboplastin Tim 28 SECONDS (26.4-36.2)
[2021-10-18] MEDS: cefTRIAXone 2,000 MG in SODIUM CHLORIDE 0.9% 100 ML 200 ML IV (10:12)
[2021-10-18 10:13] LABS: Alanine Aminotransferase 17 IU/L (<35); Albumin 4.2 g/dL (3.5-5.0); Albumin Globulin Ratio 1.1 (1.0-2.8); Alkaline Phosphatase 88 U/L (38-126); Aspartate Aminotransferase 29 IU/L (14-36); BUN Creatinine Ratio 14.6 (6-22); Bilirubin Total 0.9 mg/dL (0.2-1.3); Blood Urea Nitrogen 7 mg/dL (7-17); Calcium 9.2 mg/dL (8.4-10.2); Carbon Dioxide 34 mmol/L (22-32); Chloride 88 mmol/L (98-107); Estimated Glomerular Filt Rate > 60.0 mL/min (>60); Globulin 3.7 g/dL (1.7-4.1); Glucose 123 mg/dL (80-110); HEMOLYSIS < 15 (0-50); Lipase 19 U/L (23-300); Potassium 2.8 mmol/L (3.4-5.1); Sodium 127 mmol/L (137-145); Total Protein 7.9 g/dL (6.3-8.2)
[2021-10-18 10:20] LABS: Lactate (Lactic Acid) 2.8 mmol/L (0.7-2.1)
[2021-10-18 10:29] LABS: Procalcitonin 1.08 ng/mL (<0.5)
--- NOTE | 2021-10-18 10:50 | PC.NURSE ---
pt has 3 fentanyl patches to right lower/mid abdomen 250 mcgs total dose. two patches of 100 mcg each and one patch of 50 mcg. dated on patches as 10/17/21. patches on when pt came in from home.
[2021-10-18] MEDS: metroNIDAZOLE 500 MG/100 ML PIGGYBACK 100 MG IV (11:03)
[2021-10-18 11:04] LABS: COVID19 - ADMIT (NP swab/PCR) Negative (Negative)
[2021-10-18 11:21] LABS: Appearance Urine UA CLEAR; Bilirubin Urine UA NEGATIVE (NEGATIVE); Color Urine UA YELLOW; Glucose Urine UA NEGATIVE (Negative); Ketones Urine UA NEGATIVE (NEGATIVE); Leukocyte Esterase Urine UA NEGATIVE (NEGATIVE); Nitrite Urine UA NEGATIVE (Negative); Occult Blood Urine UA NEGATIVE (Negative); Protein Urine UA NEGATIVE (Negative); Specific Gravity Urine UA <=1.005 (1.000-1.035); Urobilinogen Urine UA 0.2 E.U./dL (0.2)
[2021-10-18 11:23] LABS: RBC Urine 0-1/HPF (0-5/HPF); WBC Urine None Seen (0-5/HPF)
[2021-10-18 11:24] LABS: Bacteria Urine None Seen; Culture Indicated Urine Cult Not Indicated; Squamous Epithelial Cell Urine None Seen (0-5/HPF)
[2021-10-18 12:05] LABS: Reflexed Lactate in 2 Hours Y
--- NOTE | 2021-10-18 13:13 | P.HP_ITS ---
History of Present Illness History of Present Illness Date Patient Seen: 10/18/21 Time Patient Seen: 13:13 Chief complaint: SOB Narrative: This is a 66 year old female with Chronic Low Back Pain, Narcotic Pain Med Dependency, previous episodes of aspiration pneumonia and a J Tube for feeding after failed Mendez procedure who presented to the ER with increased lethargy. Patient's spouse states that she started throwing up yesterday, which is common due to her failed Mendez procedure. Emesis was bilious but non-bloody per spouse. She started to develop worsening respiratory failure requiring more than 4L of O2 at home (baseline is intermittent and 2-3L at most). This morning she became more sleepy and difficult to arouse so her brought her in. Patient is un able to arouse for further review of symptoms. In the ER, the patient had a low-grade fever at 100.8, she was noted to be 88% on 2 L nasal cannula, and was turned up to 6 L with improvement in her O2 saturations. The remainder of her vital signs were unremarkable. Laboratory evaluation revealed mild leukocytosis with WBC 11.7. Chemistries were notable for a sodium of 127, potassium 2.8, CO2 of 34, lactate of 2.8, procalcitonin of 1.08. Urinalysis was negative for evidence of infection. Urine drug screen was unremarkable. COVID-19 testing was negative. Chest x-ray showed bilateral lower lobe infiltrates with a possible small left pleural effusion. Patient History Medical History Accident Chronic low back pain (01/07/06) Chronic narcotic dependence Depression Fusion of lumbar spine Hormone replacement therapy (postmenopausal) (07/03/05) Late eff spine/trunk fx (08/16/05) Unspecified essential hypertension (07/03/05) Surgical History H/O hysterectomy for benign disease History of cholecystectomy History of Mendez fundoplication Status post thoracic spinal fusion Status post-operative repair of hip fracture Family & Social History Family History Mother Alzheimer disease Father Pneumonia Social History: household members caregiver Safety & Behavioral: Feels Safe in Current Yes Environment Been Physically Hurt or No Threatened By a Person Tobacco & Substance use: Smoking Status Never smoker alcohol intake never alcohol intake frequency holiday/special occasion Substance Use Type does not use Meds Home Medications and Allergies Home Medications Medication Instructions Recorded Confirmed Type CHOLECALCIFEROL (VITAMIN D) 2,000 iu TUBE BID #0 09/04/12 10/18/21 History albuterol sulfate 90 mcg/actuation 2 puff INH Q4HP PRN #8.5 gm 09/04/12 10/18/21 History aerosol inhaler (Proventil HFA) carisoprodol 350 mg tablet 1 tab TUBE Q4H PRN #0 09/04/12 10/18/21 History diazepam 5 mg tablet 10 mg PO Q8H PRN #0 09/04/12 10/18/21 History fentanyl 100 mcg/hr transdermal 200 mcg TOPICAL Q72H #0 09/04/12 10/18/21 History patch omeprazole 40 mg-sodium 2 pkt FEEDING TUBE BID #0 09/04/12 10/18/21 History bicarbonate 1,680 mg oral packet (Zegerid) polyethylene glycol 3350 17 17 gm FEEDING TUBE PRN PRN #0 09/04/12 10/18/21 History gram/dose oral powder DIPHENOXYLATE/ATROPINE SULFATE 1 - 2 tab FEEDING TUBE QIDP PRN #0 09/07/12 10/18/21 History (DIPHENOXYLATE/ATROPINE) albuterol sulfate 3 ml INH PRN PRN #0 09/07/12 10/18/21 History citalopram 10 mg/5 mL oral solution 20 mg TUBE QDAY #0 09/07/12 10/18/21 History ondansetron HCl 4 mg/5 mL oral 1 - 2 tsp TUBE Q6HP PRN #0 09/07/12 10/18/21 History solution (Zofran) promethazine 25 mg tablet 1 - 2 tab TUBE Q6HP PRN #0 09/07/12 10/18/21 History Ketoconazole 1 glenis TOPICAL PRN PRN #0 12/23/16 10/18/21 History amlodipine 10 mg tablet 10 mg FEEDING TUBE QDAY #0 12/23/16 10/18/21 History cyclosporine 0.05 % eye drops in a 1 drp/day EYE-BOTH BID #0 12/23/16 10/18/21 History dropperette (Restasis) desonide 0.05 % lotion 1 glenis TOPICAL PRN PRN #0 12/23/16 10/18/21 History potassium chloride 20 mEq/15 mL 5.625 ml FEEDING TUBE DAILY #0 12/23/16 10/18/21 History oral liquid diphenhydramine HCl 25 mg capsule 1 - 2 tab FEEDING TUBE Q4-6H PRN 05/24/18 10/18/21 History (Benadryl) mupirocin 2 % topical ointment 1 applic TOPICAL TID 05/24/18 10/18/21 History nut.tx.impaired digest fxn 0.068 750 ml FEEDING TUBE QPM 05/24/18 10/18/21 History gram-1.5 kcal/mL oral liquid (Peptamen 1.5) cyanocobalamin (vitamin B-12) 1,000 mcg PO BID 06/09/21 10/18/21 History 1,000 mcg tablet morphine 10 mg/5 mL oral solution 30 mg FEEDING TUBE Q6H PRN 06/09/21 10/18/21 H istory naloxone 4 mg/actuation nasal 4 mg INTRANASAL Q3M PRN 06/09/21 10/18/21 History spray (Narcan) sennosides 8.6 mg tablet (senna) 8.6 mg PO BEDTIME PRN 06/09/21 10/18/21 History triamcinolone acetonide 0.5 % 1 applic TOPICAL BID PRN 06/09/21 10/18/21 History topical cream Allergies Allergy/AdvReac Type Severity Reaction Status Date / Time latex [LATEX] Allergy Mild RASH Verified 10/18/21 09:29 metoclopramide [From REGLAN] Allergy Mild TREMMORS Verified 10/18/21 09:29 Sulfa (Sulfonamide Allergy Mild RASH Verified 10/18/21 09:29 Antibiotics) [SULFA (SULFONAMIDE ANTIBIOTICS)] Iodinated Contrast Media AdvReac Mild Hives Verified 10/18/21 09:29 Review of Systems Review of Systems Narrative: Unable to review given patient's mental status. Exam Vital Signs (past 8 hours): - 10/18/21 09:15 10/18/21 09:28 10/18/21 09:30 Temperature 100.8 F H Pulse Rate 77 75 74 Respiratory Rate 22 25 H 24 Blood Pressure 129/67 Pulse Oximetry 88 L 93 95 02/24/22 09:38 10/18/21 10:00 10/18/21 10:12 Temperature Pulse Rate 75 75 73 Respiratory Rate 23 22 21 Blood Pressure 133/72 122/82 Pulse Oximetry 92 94 94 10/18/21 10:30 10/18/21 11:00 10/18/21 11:30 Temperature Pulse Rate 71 79 65 Respiratory Rate 21 19 19 Blood Pressure 127/76 136/76 131/67 Pulse Oximetry 96 99 99 10/18/21 12:00 Temperature 98.2 F Pulse Rate 72 Respiratory Rate 22 Blood Pressure 136/71 Pulse Oximetry 92 Oxygen Delivery Method Nasal Cannula Oxygen Flow Rate 4 Narrative Exam Narrative: GENERAL APPEARANCE: obese female, no acute distress. SKIN: Inspection of the skin reveals no rashes, ulcerations or petechiae. HEENT:? Normocephalic atraumatic, extraocular muscles are intact, oropharynx is clear and mucous membranes are moist, neck is supple without adenopathy NECK: Supple and symmetric. There was no thyroid enlargement, and no tenderness, or masses were felt. CHEST: Normal AP diameter and normal contour without any kyphoscoliosis. LUNGS: Auscultation of the lungs revealed no wheezes, rhonchi, or rales. CARDIOVASCULAR: There was a regular rate and rhythm without any murmurs, gallops, rubs. Peripheral pulses were 2+ and symmetric. ABDOMEN: Soft and nontender with normal bowel sounds. No ascites was noted. gastic tube in place. MUSCULOSKELETAL: There was no tenderness or effusions noted. Muscle strength and tone were normal. EXTREMITIES: No cyanosis, clubbing or edema. NEUROLOGIC: somnolent, arouses to voice but falls asleep nearly instantly. Objective Imaging Chest x-ray: My impression: Bibasilar infiltrates with probable small pleural effusion on the left. Poor inspiration Labs Result Diagrams: 10/18/21 09:38 10/18/21 09:38 Labs: Laboratory Results - last 24 hr 10/18/21 10/18/21 10/18/21 09:38 09:38 09:38 WBC 11.7 H RBC 4.92 Hgb 13.4 Hct 40.7 MCV 82.8 MCH 27.3 MCHC 32.9 RDW 13.2 Plt Count 205 Neut % (Auto) 94.6 H Lymph % (Auto) 2.9 L [place] % (Auto) 2.4 L Eos % (Auto) 0.0 L Baso % (Auto) 0.1 Neut # (Auto) 35689 H Lymph # (Auto) 300 L [place] # (Auto) 300 Eos # (Auto) 0 Baso # (Auto) 0 PT 11.6 INR 1.0 APTT 28 Sodium 127 L Potassium 2.8 L Chloride 88 L Carbon Dioxide 34 H BUN 7 Creatinine 0.48 L Estimated GFR > 60.0 BUN/Creatinine Ratio 14.6 Glucose 123 H Lactate Calcium 9.2 Total Bilirubin 0.9 AST 29 ALT 17 Alkaline Phosphatase 88 Total Protein 7.9 Albumin 4.2 Globulin 3.7 Albumin/Globulin Ratio 1.1 Lipase 19 L Procalcitonin 1.08 H Urine Color Urine Appearance Urine pH Ur Specific [place] Urine Protein Urine Glucose (UA) Urine Ketones Urine Occult Blood Urine Nitrate Urine Bilirubin Urine Urobilinogen Ur Leukocyte Esterase Urine RBC Urine WBC Ur Squamous Epith Cells Urine Bacteria Ur Culture Indicated? SARS-CoV-2 (PCR) 10/18/21 10/18/21 10/18/21 10:01 10:10 10:55 WBC RBC Hgb Hct MCV MCH MCHC RDW Plt Count Neut % (Auto) Lymph % (Auto) [place] % (Auto) Eos % (Auto) Baso % (Auto) Neut # (Auto) Lymph # (Auto) [place] # (Auto) Eos # (Auto) Baso # (Auto) PT INR APTT Sodium Potassium Chloride Carbon Dioxide BUN Creatinine Estimated GFR BUN/Creatinine Ratio Glucose Lactate 2.8 H Calcium Total Bilirubin AST ALT Alkaline Phosphatase Total Protein Albumin Globulin Albumin/Globulin Ratio Lipase Procalcitonin Urine Color Yellow Urine Appearance Clear Urine pH 7.0 Ur Specific [place] <=1.005 Urine Protein Negative Urine Glucose (UA) Negative Urine Ketones Negative Urine Occult Blood Negative Urine Nitrate Negative Urine Bilirubin Negative Urine Urobilinogen 0.2 Ur Leukocyte Esterase Negative Urine RBC 0-1/hpf Urine WBC None seen Ur Squamous Epith Cells None seen Urine Bacteria None seen Ur Culture Indicated? Cult not indicated SARS-CoV-2 (PCR) Negative Assessment & Plan Assessment & Plan narrative: This is a 66 year old female admitted with aspiration pneumonia and acute on chronic hypoxic respiratory failure. 1. Sepsis secondary to Aspiration Pneumonia with acute hypoxic and hypercapnic respiratory failure, present on admission.? Active. With metabolic encephalopathy. -history of aspiration and with negative COVID testing.?CXR showing bilateral infiltrates and low grade fever in the ER. -SOFA score 2 based on respiratory failure worse than baseline and GCS 14 on admission. -Zosyn 3.375 mg IV q.6 hours will continue -continue oxygen and wean as tolerated. -suspect component of sedation / apnea due to obesity and opiate use. try and reduce opiates. -prior echo last admission with similar presentation showed a normal EF. -PSI score of 105 indicating high risk of mortality, class IV. 2. Hypokalemia, present on admission.? Active. -admission potassium of 2.8 -replete with oral via J tube 3. Hyponatremia, present on admission.? Active -sodium of 127 -unclear etiology, likely related to J-tube feeding, continue IV normal saline 4 Anxiety/depression, present on admission.? Active.? -continue citalopram 5. Chronic Low Back Pain, present on admission.? Active. -continue fentanyl patch, try and reduce. -continue morphine 30 mg per feeding tube q.6 hours, try to reduce. -continue carisoprodol -hold opioid and notify physician if oversedated at scheduled times. 6. Opiate Pain Dependency, present on admission. Active. - continue to try and wean as able. 7. Tube feeding, present on admission.? Stable.? -continue home feedings here. Code: Full, surrogate is spouse. Patient does have an advanced care directive as well. Dispo: Admit as inpatient given pneumonia risk, stay is expected to exceed two midnights. I have utilized all available immediate resources to obtain, update, or review the patient's current medications. COVID-19 COVID-19 status: Negative Time Spent With Patient Critical Care time: I spent a total of [] minutes of critical care time on this patient's care today; this time is exclusive of procedural time. Scores GCS Laurie coma scale eye opening: Spontaneous [place] coma scale verbal response: Confused [place] coma scale motor response: Obey commands [place] coma scale total score: 14 SOFA PaO2/FIO2: < 400 mmHg Platelets: >= 150 Bilirubin: < 1.2 mg/dL Hypotension: MAP >= 70 mmHg [place] Coma Scale: 13-14 Renal: < 1.2 mg/dL SOFA Score: 2 Quality MIPS - Admit I confirm the patient?s Advance Care Plan is present, Code status is documented, Surrogate decision maker is in patient?s record [If Yes, STOP here]: Yes
[2021-10-18] MEDS: PIPERACILLIN/TAZO 3.375 GM in SODIUM CHLORIDE 0.9% 100 ML 25 ML IV ×2 (13:42→20:26)
[2021-10-18] MEDS: SODIUM CHLORIDE 0.9% 1,000 ML 125 ML IV ×2 (13:43→20:23)
[2021-10-18] MEDS: POTASSIUM CHLORIDE 20 MEQ/15 ML UDC 40 MEQ TUBE (13:43)
[2021-10-18 13:47] LABS: Lactate 2HR (Lactic Acid Rflx) 2.9 mmol/L (0.7-2.1)
[2021-10-18] MEDS: MORPHINE 10 MG/0.5 ML ORAL SYRINGE 30 MG PO ×2 (14:29→22:14)
[2021-10-18] MEDS: ONDANSETRON 4 MG/2 ML INJ IV (14:30)
--- NOTE | 2021-10-18 14:44 | PC.NURSE ---
Day shift: Pt o unit from ED at approx 1200. She is easy to awaken by voice or touch and can perform simply tasks such as moving arms and legs. VS WNL. 4L NC 93%. Dr Guevara has seen Pt and Pt's Life Partner Emre in room also. Went over the home med list with Emre as well. PEG tube patent and dressing is CDI. Pt has tolerated the liquid potassium per PEG tube. Bed alarm is on and call light in reach. Pt NPO. Pt's skin intact and appears well taken care of. Pt had wet brief on arrival and tolerated brief change well. IV infusing per MAR. Will continue with plan of care.
--- NOTE | 2021-10-18 16:38 | DIET.CONS ---
Addendum entered by Monica Causey 10/18/21 16:48: Interventions: 1. Initiate home tube feed routine at goal rate. Peptamin 1.5 continuous feed at 55mL/h nocturnal (1700h-0600h), no formula feeds during day. 2. Free water flushes 350mL q4h with meds. 3. Ensure hob elevated at least 30 degrees while feeding, pt at lower risk of aspiration as pt being fed into jejunum, however, pt reports occasional backflow into stomach and pt admitted for possible aspiration. 4. Ensure home formula not . Original Note: Dietary Consultation Note Admission Date: 10/18/2021 11:32 Assessment: 66y F admitted for SOB referred to nutrition for tube feeding reccs as pt has j-tube. Pt had j-tube after complication from danny procedure many years ago. Pt and life partner Emre agree to use home formula to ensure best tolerance while hospitalized. They brought formula in, Peptamin 1.5. Pt generally sleeps in recliner at night and feeds via continuous pump (enfit) from 8445-1299 at rate of 65mL/h. Pt also takes 350mL free water q4h with meds. Pt does not feed during the day. Pt worried about nausea so requests lower rate while hospitalized. RD and patient agreed to 55mL/h continuous nocturnal feeds. Pump and bag at bedside, nursing to hygienically pour two cans Peptamin 1.5 into bag to initiate feeding. RD ensured enfit products compatible with pts j-tube appliance. If pt feels she can tolerate her normal rate of 65mL/h, feel free to bump up. Ht: 147.32 cm Wt: 79.5 kg BMI: 36.6 Last BM: 10/18/21 (10/18/21 11:45) MNA: 10 David Score: 14 Diet: 10/18/21 09:28 NPO Diet Diet Modifications: NPO Type: Strict 10/18/21 Dinner Tube Feeding Diet TF Supplement type: Peptamin 1.5 pt brought from home TF mode of delivery: Continuous Starting flow rate mL/hr: 55 Flow rate goal mL/hr: 55 Titration Schedule to reach Goal Rate: start at goal Max total daily volume in mL: 2,760 Free fluid: 350 Free Water Frequency: Q4H Comment: continuous feed 1700 to 0600 daily, no feed during day only flushes Labs: RBC 4.92 X10^6/uL (4.0-5.2) 10/18/21 09:38 Hgb 13.4 g/dL (12.0-16.0) 10/18/21 09:38 Hct 40.7 % (36-46) 10/18/21 09:38 Creatinine 0.48 mg/dL (0.52-1.04) L 10/18/21 09:38 Lactate 2.9 mmol/L (0.7-2.1) H 10/18/21 13:26 Nutrition Diagnosis: inability to consume oral intake r/t altered GI function aeb pt with j-tube, pt dependent on enteral formula. Interventions: 1. Initiate home tube feed routine at goal rate. Peptamin 1.5 continuous feed at 55mL/h nocturnal (1700h-0600h), no formula feeds during day. 2. Free water flushes 350mL q4h with meds. 3. Ensure hob elevated at least 30 degrees while feeding, pt at lower risk of aspiration as pt being fed into jejunum, however, pt reports occasional backflow into stomach and pt admitted for possible aspiration. 4. Ensure home formula not . Monitoring/Evaluations: following for tolerance Electronically Signed by: Monica Causey 10/18/21 16:38 Clinical Dietitian [address] [id number]
[2021-10-18] MEDS: PANTOPRAZOLE 40 MG VIAL TUBE (20:25)
[2021-10-19 03:00] VITALS: BP 113/60; PULSE 61; RESP 18; TEMP 36.3; O2SAT 95
[2021-10-19] MEDS: PIPERACILLIN/TAZO 3.375 GM in SODIUM CHLORIDE 0.9% 100 ML 25 ML IV ×2 (04:01→11:15)
[2021-10-19 05:02] LABS: Add Manual Diff / Slide Review NO; Basophils Absolute Auto 0 /uL (0-100); Basophils Percent Auto 0.1 % (0-2); Eosinophils Absolute Auto 0 /uL (0-450); Eosinophils Percent Auto 0.1 % (2-4); Hematocrit 33.2 % (36-46); Hemoglobin 10.8 g/dL (12.0-16.0); Lymphocytes Absolute Auto 1000 /uL (1100-4500); Lymphocytes Percent Auto 6.5 % (25-40); Mean Corpuscular HGB Conc 32.3 % (30-36); Mean Corpuscular Hemoglobin 27.1 PG (26-34); Mean Corpuscular Volume 83.8 fL (80-100); Monocytes Absolute Auto 400 /uL (0-900); Monocytes Percent Auto 2.7 % (3-14); Neutrophils Absolute Auto 13800 /uL (1500-7000); Neutrophils Percent Auto 90.6 % (50-75); Platelet Count 168 X10^3/uL (150-400); Red Blood Cell Count 3.97 X10^6/uL (4.0-5.2); Red Cell Distribution Width 13.6 % (11.6-14.8); White Blood Cell Count 15.2 X10^3/uL (4.5-11.0)
[2021-10-19 05:08] LABS: Alanine Aminotransferase 11 IU/L (<35); Albumin 3.2 g/dL (3.5-5.0); Alkaline Phosphatase 52 U/L (38-126); Aspartate Aminotransferase 20 IU/L (14-36); Bilirubin Total 0.5 mg/dL (0.2-1.3); Blood Urea Nitrogen 9 mg/dL (7-17); Calcium 8.1 mg/dL (8.4-10.2); Carbon Dioxide 32 mmol/L (22-32); Chloride 97 mmol/L (98-107); Estimated Glomerular Filt Rate > 60.0 mL/min (>60); Globulin 3.1 g/dL (1.7-4.1); Glucose 127 mg/dL (80-110); HEMOLYSIS < 15 (0-50); Potassium 3.8 mmol/L (3.4-5.1); Sodium 129 mmol/L (137-145); Total Protein 6.3 g/dL (6.3-8.2)
[2021-10-19] MEDS: SODIUM CHLORIDE 0.9% 1,000 ML 125 ML IV (05:15)
[2021-10-19] MEDS: MORPHINE 10 MG/0.5 ML ORAL SYRINGE 30 MG PO ×2 (05:16→10:29)
--- NOTE | 2021-10-19 07:48 | PC.NURSE ---
Day shift: PEG tube feeding completed this AM per MD orders. Tubing removed and PEG flushed with approx 12ml of free water. Pt tolerated well. Pt also did not want her Albuterol treatment this AM. On 2L NC 94%. Pt stated that sometimes at home she does not use O2 and if she does its usually 1L NC. Call light in reach. PEG tube dressing CDI.
[2021-10-19] MEDS: CITALOPRAM 10 MG TABLET 20 MG TUBE (08:10)
[2021-10-19] MEDS: AMLODIPINE 5 MG TABLET 10 MG TUBE (08:10)
[2021-10-19] MEDS: PANTOPRAZOLE 40 MG VIAL TUBE (08:10)
[2021-10-19] MEDS: ENOXAPARIN 40 MG/0.4 ML SYRINGE SUBCUT (08:11)
[2021-10-19 09:09] VITALS: BP 109/57; PULSE 60; RESP 15; TEMP 35.9; O2SAT 94
--- NOTE | 2021-10-19 10:43 | CM.DANOTE ---
DCP: Case received, EMR reviewed and met with patient. Partner/Caregiver, Emre Dominguez, was also at bedside. Was able to obtain information regarding patient's baseline care needs at home prior to admission. DCP assessment completed with information currently available. Patient is a 66 year old female who admitted yesterday morning to the care of the hospitalist team. PCP: Dr. Arriaga. Payer: confirmed: Medicare/Medicaid. Patient came to the hospital via private vehicle secondary to her having increased shortness of breath. Patient also had a low grade fever of 100.8, and oxygen sats at 88%. According to partner, patient had some emesis yesterday. Patient holds diagnosis of sepsis secondary to aspiration pneumonia. According to team rounds, patient is on a high dose of Fentany for chronic pain. Patient also has history of chronic low pain, narcotic pain medication dependency, and has a J tube for feeding after failed Mendez procedure. She was noted to have increased lethargy in the ER. Met with patient and partner, Emre Dominguez, at bedside. Patient was smiling and alert, hoping to go home today. Confirmed that patient resides here in [place] with partner, who is her caregiver, Emre. He assists with her feedings, and provides care. She uses a wheel-chair at home, he stated that he has been able to get patient in the car to appointments as needed. P: DCP to continue to follow. Patient should be able to go home when she is deemed medically stable. Bridget Wiseman RN/Solar Consultant Discharge Planning/Care Management CM Discharge Assessment Start: 10/19/21 10:42 Freq: Status: Active Protocol: Document 10/19/21 10:42 (Rec: 10/19/21 10:43 [email or web address]) Discharge Planning Assessment Assigned Inspector [employer] Detail Bridget Wiseman RN/Solar Consultant Advance Directives? Yes Advance Directives on File Yes History Provided By Patient,Significant Other, Medical Record Prior Living Arrangements House Household Members caregiver Type of transporation used prior to Relies on Others admit Independent with ADL's No Is patient alert and oriented? Yes Needs Assistance With Bathing,Meal Prep,Toileting, Managing Medications,Home Chores / Shopping Caregiver for Another No DME Already Rented / Owned Wheelchair Barriers to Discharge No Discharge Plan Home Transportation Arrangement Caregiver/significant other Referrals Initiated None needed Whiteboard Updated in Patient Room with Yes name and ext. # of Inspector Pawnshop Detail Review Status In Process Next Review Type Continued Stay Review
--- NOTE | 2021-10-19 11:43 | PM.DS.1 ---
History of Present Illness History of Present Illness Date Patient Seen: 10/19/21 Time Patient Seen: 11:43 Chief complaint: SOB Narrative: This is a 66 year old female with Chronic Low Back Pain, Narcotic Pain Med Dependency, previous episodes of aspiration pneumonia and a J Tube for feeding after failed Mendez procedure who presented to the ER with increased lethargy. Patient's spouse states that she started throwing up yesterday, which is common due to her failed Mendez procedure. Emesis was bilious but non-bloody per spouse. She started to develop worsening respiratory failure requiring more than 4L of O2 at home (baseline is intermittent and 2-3L at most). This morning she became more sleepy and difficult to arouse so her brought her in. Patient is unable to arouse for further review of symptoms. In the ER, the patient had a low-grade fever at 100.8, she was noted to be 88% on 2 L nasal cannula, and was turned up to 6 L with improvement in her O2 saturations. The remainder of her vital signs were unremarkable. Laboratory evaluation revealed mild leukocytosis with WBC 11.7. Chemistries were notable for a sodium of 127, potassium 2.8, CO2 of 34, lactate of 2.8, procalcitonin of 1.08. Urinalysis was negative for evidence of infection. Urine drug screen was unremarkable. COVID-19 testing was negative. Chest x-ray showed bilateral lower lobe infiltrates with a possible small left pleural effusion. Discharge Providers Provider Date of admission: 10/18/21 11:32 Discharge Date: 10/19/21 Primary care physician: Julián Arriaga MD Consults: 10/18/21 13:25 Consult to Dietitian, Adult Routine Comment: pt using PEG tube Reason For Exam: PER PROTOCOL Consult to Marketing And Public Relations Manager Routine Comment: Discharge provider: Timbo Guevara DO Summary Hospital Course Discharge Diagnosis: This is a 66 year old female admitted with aspiration pneumonia and acute on chronic hypoxic respiratory failure. 1. Sepsis secondary to? Aspiration Pneumonia with acute hypoxic and hypercapnic respiratory failure, present on admission.? Active. With metabolic encephalopathy. 2. Hypokalemia, present on admission.? Active. 3. Hyponatremia, present on admission.? Active 4 Anxiety/depression, present on admission.? Active.? 5. Chronic Low Back Pain, present on admission.? Active. 6. Opiate Pain Dependency, present on admission. Active. 7. Tube feeding, present on admission.? Stable.? Hospital Course: This is a 66 year old female with Chronic Low Back Pain, Narcotic Pain Med Dependency, previous episodes of aspiration pneumonia and a J Tube for feeding after failed Mendez procedure who presented to the ER with increased lethargy and ultimately found to have sepsis secondary to an aspiration pnuemonia. She was initially requiring up to 6L of supplemental oxygen when her baseline use is between 2-3 L and she was extremely somnolent and confused. SOFA score was 2 and her PSI score was 105 (class IV). Shortly after admission her mental status began to improve, as did her oxygen requirement. The following day, she was requiring her baseline level of oxygen and her mentation had improved to baseline. She improved much more quickly than expected. Given marked clinical improvement she was able to be discharged home the following day to complete augmentin course at home. I do recommend, similar to her previous admission, she try and cut back on her opiate use to assist with her chronic respiratory depression. She also had a slightly lower sodium of 127 on admission than her usual baseline of around 130. This likely improved due to IV fluids that were provided. She also had low potassium which corrected with oral repletion. Time Spent with Patient Time spent: Less than 30 minutes Exam Vital Signs (past 8 hours): - 10/19/21 09:09 Temperature 96.6 F L Pulse Rate 60 Respiratory Rate 15 Blood Pressure 109/57 L Pulse Oximetry 94 Oxygen Delivery Method Nasal Cannula Oxygen Flow Rate 4 Narrative Exam Narrative: GENERAL APPEARANCE: obese female, no acute distress. SKIN: Inspection of the skin reveals no rashes, ulcerations or petechiae. HEENT:? Normocephalic atraumatic, extraocular muscles are intact, oropharynx is clear and mucous membranes are moist, neck is supple without adenopathy NECK: Supple and symmetric. There was no thyroid enlargement, and no tenderness, or masses were felt. CHEST: Normal AP diameter and normal contour without any kyphoscoliosis. LUNGS: Auscultation of the lungs revealed no wheezes, rhonchi, or rales. CARDIOVASCULAR: There was a regular rate and rhythm without any murmurs, gallops, rubs. Peripheral pulses were 2+ and symmetric. ABDOMEN: Soft and nontender with normal bowel sounds. No ascites was noted. gastic tube in place. MUSCULOSKELETAL: There was no tenderness or effusions noted. Muscle strength and tone were normal. EXTREMITIES: No cyanosis, clubbing or edema. NEUROLOGIC: alert and oriented, no focal deficits. Objective Labs Result Diagrams: 10/19/21 04:25 10/19/21 04:25 Labs: Laboratory Results - last 24 hr 10/18/21 10/19/21 10/19/21 13:26 04:25 04:25 WBC 15.2 H RBC 3.97 L Hgb 10.8 L Hct 33.2 L MCV 83.8 MCH 27.1 MCHC 32.3 RDW 13.6 Plt Count 168 Neut % (Auto) 90.6 H Lymph % (Auto) 6.5 L [place] % (Auto) 2.7 L Eos % (Auto) 0.1 L Baso % (Auto) 0.1 Neut # (Auto) 52653 H Lymph # (Auto) 1000 L [place] # (Auto) 400 Eos # (Auto) 0 Baso # (Auto) 0 Sodium 129 L Potassium 3.8 Chloride 97 L Carbon Dioxide 32 BUN 9 Creatinine 0.41 L Estimated GFR > 60.0 BUN/Creatinine Ratio 22.0 Glucose 127 H Lactate 2.9 H Calcium 8.1 L Magnesium 2.0 Total Bilirubin 0.5 AST 20 ALT 11 Alkaline Phosphatase 52 Total Protein 6.3 Albumin 3.2 L Globulin 3.1 Albumin/Globulin Ratio 1.0 PFSH Medical History Accident Chronic low back pain (01/07/06) Chronic narcotic dependence Depression Fusion of lumbar spine Hormone replacement therapy (postmenopausal) (07/03/05) Late eff spine/trunk fx (08/16/05) Unspecified essential hypertension (07/03/05) Surgical History H/O hysterectomy for benign disease History of cholecystectomy History of Mendez fundoplication Status post thoracic spinal fusion Status post-operative repair of hip fracture Family History Mother Alzheimer disease Father Pneumonia Social History household members: caregiver Smoking Status: Never smoker alcohol intake: never Discharge Plan Discharge Plan Patient Disposition: Home Provider Discharge Comment: You were admitted to the hospital with aspiration and respiratory failure. Improved quickly, please complete antibiotic therapy at home. Discharge orders & Medications Prescriptions: New amoxicillin-pot clavulanate 875-125 mg tablet 1 tab PO BID 6 Days Qty: 12 0RF Continued fentanyl 100 MCG/HR patch 72 hour 200 mcg Topical Q72H Qty: 0 0RF Label Comments: for a total of 250mcg polyethylene glycol 3350 255 GM powder 17 gm Feeding Tube PRN PRN (Reason: Constipation) Qty: 0 0RF omeprazole-sodium bicarbonate [Zegerid] 40 MG packet 2 pkt Feeding Tube BID Qty: 0 0RF albuterol sulfate [Proventil HFA] 90 MCG/PUFF HFA aerosol inhaler 2 puff INH Q4HP PRN (Reason: Shortness Of Breath) Qty: 8.5 0RF diazepam 5 MG tablet 10 mg PO Q8H PRN (Reason: Anxiety) Qty: 0 0RF carisoprodol 350 MG tablet 1 tab TUBE Q4H PRN (Reason: Spasms) Qty: 0 0RF Rx Instructions: / CHOLECALCIFEROL (VITAMIN D) 2,000 iu TUBE BID Qty: 0 0RF citalopram 10 MG/5 ML solution 20 mg TUBE QDAY Qty: 0 0RF promethazine 25 MG tablet 1 - 2 tab TUBE Q6HP PRN (Reason: Nausea) Qty: 0 0RF albuterol sulfate 2.5 MG/3 ML solution for nebulization 3 ml INH PRN PRN (Reason: Shortness Of Breath) Qty: 0 0RF DIPHENOXYLATE/ATROPINE SULFATE (DIPHENOXYLATE/ATROPINE) 1 - 2 tab Feeding Tube QIDP PRN (Reason: Diarrhea) Qty: 0 0RF ondansetron HCl [Zofran] 4 MG/5 ML solution 1 - 2 tsp TUBE Q6HP PRN (Reason: Nausea) Qty: 0 0RF amlodipine 10 MG tablet 10 mg Feeding Tube QDAY Qty: 0 0RF desonide 0.05 % lotion 1 glenis Topical PRN PRN (Reason: Rash) Qty: 0 0RF Restasis 1 EACH dropperette 1 drp/day EYE-BOTH BID Qty: 0 0RF Ketoconazole 1 glenis Topical PRN PRN (Reason: Rash) Qty: 0 0RF potassium chloride 20 MEQ/15 ML liquid 5.625 ml Feeding Tube DAILY Qty: 0 0RF Rx Instructions: 10% SOLUTION diphenhydramine HCl [Benadryl] 25 mg Capsule 1 - 2 tab Feeding Tube Q4-6H PRN (Reason: Itching) 0RF Peptamen 1.5 0.068 gram- 1.5 kcal/mL Liquid 750 ml Feeding Tube QPM 0RF mupirocin 2 % Ointment 1 applic TOPICAL TID 0RF sennosides [senna] 8.6 mg Tablet 8.6 mg PO BEDTIME PRN (Reason: Constipation) 0RF morphine 10 mg/5 mL solution 30 mg feeding tube Q6H PRN (Reason: Pain (Scale Score 7-10)) 0RF Label Comments: take 15 milliliter by mouth every 6 hours if needed for severe pain FOR UP TO 28 DAYS triamcinolone acetonide 0.5 % Cream 1 applic TOPICAL BID PRN (Reason: Rash) 0RF cyanocobalamin (vitamin B-12) 1,000 mcg Tablet 1,000 mcg PO BID 0RF naloxone [Narcan] 4 mg/actuation [place],Non-Aerosol 4 mg INTRANASAL Q3M PRN (Reason: Opioid Overdose) 0RF Follow up/Referrals: Julián Arriaga MD [Primary Care Provider] - Diet/Activity/Treatments Diet: Tube Feeding Activity: As tolerated Visit Report/Discharge Packet Instructions: Aspiration Pneumonia, DI for Pneumonia -- Adult, DI for Respiratory Failure Discharge Data Primary Care Provider: Julián Arriaga Quality VTE Deep Vein Thrombosis/Pulmonary Embolism Present on Admission: No
[2021-10-19 13:00] VITALS: BP 121/49; PULSE 78; RESP 18; TEMP 37.2; O2SAT 94
[2021-10-19 14:01] VITALS: PULSE 71; RESP 18; O2SAT 92
[2021-10-19] MEDS: ALBUTEROL 2.5 MG/3 ML NEB (ADULT) INH (14:01)
--- NOTE | 2021-10-19 16:02 | PC.NURSE ---
Day shift: Pt left unit at approx 1600 via WC. Her Life Partner is driving her home and is her primary caregiver. Pt taken to that car by CARLOS Cardoso. This telegraphic typewriter operator chief was there to help with transfer to car seat. Pt did very well getting into the car. Pt left on her own O2 canister. Paperwork went over with Pt by Gunnar HENDERSON. Paperwork signed and all question answered. See BEATRIZ Maher's note for any more discharge details.
--- NOTE | 2021-10-19 16:10 | PC.NURSE ---
Day shift - Went over D/C info w/Pt and caregiver, they both verbalized understanding of condition and info given. Pt left floor at 1600 w/nurse and cargiver to private vehicle.
== END 2021-10-19 16:15 | disposition home or self-care (01) | DRG 871 ==
LOC: ED 10:02 → AC 11:32
PROVIDERS: Admitting Provider Internal Medicine; Emergency Provider Emergency Medicine; Family Provider Internal Medicine; PCP Internal Medicine; Referring Provider Emergency Medicine; Visit Provider Internal Medicine
DX: A41.9 Sepsis, unspecified organism (principal); J69.0 Pneumonitis due to inhalation of food and vomit; J96.02 Acute respiratory failure with hypercapnia; G93.41 Metabolic encephalopathy; J96.01 Acute respiratory failure with hypoxia; E87.1 Hypo-osmolality and hyponatremia; F11.20 Opioid dependence, uncomplicated; R65.20 Severe sepsis without septic shock; E87.6 Hypokalemia; F41.9 Anxiety disorder, unspecified; F32.A Depression, unspecified; G89.29 Other chronic pain; M54.50 Low back pain, unspecified; I10 Essential (primary) hypertension; Z20.822 Contact with and (suspected) exposure to COVID-19; Z93.4 Other artificial openings of gastrointestinal tract status
CPT/HCPCS: 36415; 71045; 80053; 81001; 83605; 83690; 83735; 84145; 85025; 85610; 85730; 87040; 87635; 94640; 94760; 96365; 96367; 99284; 99285; C9803; C9113; J0696; J1650; J2405; J2543; J7613

== ENCOUNTER 2021-12-06 16:39 | Inpatient (IN) | payer MEDICARE, MEDICAID, SELFPAY ==
[2021-10-18 11:45] VITALS: BMI 36.6
[2021-12-06] VITALS (59 sets, daily range): BP systolic 134–195; BP diastolic 57–109; PULSE 73–131; RESP 8–51; TEMP 37.6–37.8; O2SAT 83–98; BMI 34.5; BMI 33.1
[2021-12-06] MEDS: NALOXONE 0.4 MG/ML VIAL 1.2 MG IV (16:44)
--- NOTE | 2021-12-06 16:50 | ED_ITS ---
HPI - Altered Mental Status General Chief Complaint: Shortness of Breath/Dyspnea Stated Complaint: nausea, unresponsive Time Seen by Provider: 12/06/21 16:50 History of Present Illness HPI narrative: Patient is a 66-year-old female history of esophageal dysmotility long-term PEG tube, chronic pain on multiple opiates, chronic aspiration on oxygen at home, presenting today with decreasing mental status. states that she was at her baseline last night and this morning. This afternoon he gave her her normal dose of morphine in fact of her normal dose of morphine however she became unarousable. She has had episodes like this in the past for she has also been hypoxic and had pneumonia. Twice in the last year for the same. reports no fever vomiting or other symptoms Related Data Home Medications Medication Instructions Recorded Confirmed CHOLECALCIFEROL (VITAMIN D) 2,000 iu TUBE BID #0 09/04/12 10/18/21 albuterol sulfate 90 mcg/actuation 2 puff INH Q4HP PRN #8.5 gm 09/04/12 10/18/21 aerosol inhaler (Proventil HFA) carisoprodol 350 mg tablet 1 tab TUBE Q4H PRN #0 09/04/12 10/18/21 diazepam 5 mg tablet 10 mg PO Q8H PRN #0 09/04/12 10/18/21 fentanyl 100 mcg/hr transdermal 200 mcg TOPICAL Q72H #0 09/04/12 10/18/21 patch omeprazole 40 mg-sodium 2 pkt FEEDING TUBE BID #0 09/04/12 10/18/21 bicarbonate 1,680 mg oral packet (Zegerid) polyethylene glycol 3350 17 17 gm FEEDING TUBE PRN PRN #0 09/04/12 10/18/21 gram/dose oral powder DIPHENOXYLATE/ATROPINE SULFATE 1 - 2 tab FEEDING TUBE QIDP PRN #0 09/07/12 10/18/21 (DIPHENOXYLATE/ATROPINE) albuterol sulfate 3 ml INH PRN PRN #0 09/07/12 10/18/21 citalopram 10 mg/5 mL oral solution 20 mg TUBE QDAY #0 09/07/12 10/18/21 ondansetron HCl 4 mg/5 mL oral 1 - 2 tsp TUBE Q6HP PRN #0 01/14/13 02/24/22 solution (Zofran) promethazine 25 mg tablet 1 - 2 tab TUBE Q6HP PRN #0 09/07/12 10/18/21 Ketoconazole 1 glenis TOPICAL PRN PRN #0 12/23/16 10/18/21 amlodipine 10 mg tablet 10 mg FEEDING TUBE QDAY #0 12/23/16 10/18/21 cyclosporine 0.05 % eye drops in a 1 drp/day EYE-BOTH BID #0 12/23/16 10/18/21 dropperette (Restasis) desonide 0.05 % lotion 1 glenis TOPICAL PRN PRN #0 12/23/16 10/18/21 potassium chloride 20 mEq/15 mL 5.625 ml FEEDING TUBE DAILY #0 12/23/16 10/18/21 oral liquid diphenhydramine HCl 25 mg capsule 1 - 2 tab FEEDING TUBE Q4-6H PRN 05/24/18 10/18/21 (Benadryl) mupirocin 2 % topical ointment 1 applic TOPICAL TID 05/24/18 10/18/21 nut.tx.impaired digest fxn 0.068 750 ml FEEDING TUBE QPM 05/24/18 10/18/21 gram-1.5 kcal/mL oral liquid (Peptamen 1.5) cyanocobalamin (vitamin B-12) 1,000 mcg PO BID 06/09/21 10/18/21 1,000 mcg tablet morphine 10 mg/5 mL oral solution 30 mg FEEDING TUBE Q6H PRN 06/09/21 10/18/21 naloxone 4 mg/actuation nasal 4 mg INTRANASAL Q3M PRN 06/09/21 10/18/21 spray (Narcan) sennosides 8.6 mg tablet (senna) 8.6 mg PO BEDTIME PRN 06/09/21 10/18/21 triamcinolone acetonide 0.5 % 1 applic TOPICAL BID PRN 06/09/21 10/18/21 topical cream Allergies Allergy/AdvReac Type Severity Reaction Status Date / Time latex [LATEX] Allergy Mild RASH Verified 10/18/21 09:29 metoclopramide [From REGLAN] Allergy Mild TREMMORS Verified 10/18/21 09:29 Sulfa (Sulfonamide Allergy Mild RASH Verified 10/18/21 09:29 Antibiotics) [SULFA (SULFONAMIDE ANTIBIOTICS)] Iodinated Contrast Media AdvReac Mild Hives Verified 10/18/21 09:29 Review of Systems Review of Systems ROS Unobtainable: Unobtainable due to medical condition Patient History Medical History Accident Chronic low back pain (01/07/06) Chronic narcotic dependence Depression Fusion of lumbar spine Hormone replacement therapy (postmenopausal) (07/03/05) Late eff spine/trunk fx (08/16/05) Unspecified essential hypertension (07/03/05) Surgical History H/O hysterectomy for benign disease History of cholecystectomy History of Mendez fundoplication Status post thoracic spinal fusion Status post-operative repair of hip fracture Family History Mother Alzheimer disease Father Pneumonia Social History household members: caregiver Smoking Status: Never smoker alcohol intake: never Smoking Status: Never smoker alcohol intake frequency: holidays/special occasions only Substance Use Type: does not use Exam Initial Vital Signs Initial Vital Signs: Vital Signs Temperature 100.1 F H 12/06/21 16:47 Pulse Rate 74 12/06/21 16:47 Respiratory Rate 8 L 12/06/21 16:47 Blood Pressure 151/85 H 12/06/21 16:47 Pulse Oximetry 90 L 12/06/21 16:47 Gen.: Patient responsive to pain only shallow breathing HEENT: Head is atraumatic, pinpoint pupils Neck: Supple no JVD Lungs: Decreased bilateral no tachypnea or respiratory distress Cardiac: Regular rate and rhythm Abdomen: Soft nontender peg tube noted Extremities: No gross bony deformities peripheral pulses intact Neurologic: Decreased responsiveness but does respond to pain Course Orders Ordered: ED Orders 12/06/21 16:47 Acetaminophen Stat Ammonia (NH3) Stat BNP [NT-proBNP (BNP-Adult 18+)] Stat Complete Blood Count AUTO DIFF Stat Comprehensive Metabolic Panel Stat Ethanol (ETOH) Stat Lactate (Lactic Acid) Stat Partial Thromboplastin Time Stat Procalcitonin Stat Prolactin Stat Prothrombin Time INR Stat Salicylate Stat Thyroid Stimulating Hormone Stat Troponin & CK Cardiac Panel Stat 12/06/21 16:50 EKG-12 Lead Stat 12/06/21 16:51 CT head/brain wo con Stat XR chest 1V Stat 12/06/21 17:05 ABG [Arterial Blood Gas] Stat 12/06/21 17:28 Urinalysis and Microscopic Stat 12/06/21 17:37 Blood Culture Stat 12/06/21 17:51 Urine Drug Screen, Rapid Stat 12/06/21 20:15 BNP [NT-proBNP (BNP-Adult 18+)] Stat 12/06/21 20:22 COVID19 -Nasal RAPID/Pre-Proc Stat Sodium Chloride (Normal Saline 0.9%) 1,000 mls @ 150 mls/hr IV CONT SHIMON Last Admin: 12/06/21 17:39 Dose: 150 mls/hr Documented by: DEMETRIO Discontinued Medications Piperacillin Sod/Tazobactam (Sod 4.5 gm/ Sodium Chloride) 100 mls @ 200 mls/hr IV NOW ONE Stop: 12/06/21 20:16 Last Admin: 12/06/21 20:32 Dose: 200 mls/hr Documented by: CORNELIUS Naloxone HCl (Naloxone 0.4 Mg/Ml Vial) 0.4 mg IV NOW ONE Stop: 12/06/21 19:01 Last Admin: 12/06/21 19:01 Dose: 0.4 mg Documented by: CAROLIN Naloxone HCl (Naloxone 0.4 Mg/Ml Vial) 0.4 mg IV NOW ONE Stop: 12/06/21 20:33 Last Admin: 12/06/21 20:35 Dose: 0.4 mg Documented by: CORNELIUS Ondansetron HCl (Ondansetron 4 Mg/2 Ml Inj) 4 mg IV NOW ONE Stop: 12/06/21 19:09 Last Admin: 12/06/21 19:14 Dose: 4 mg Documented by: CAROLIN Vital Signs Vital signs: Vital Signs - 8 hr 12/06/21 16:47 12/06/21 16:50 12/06/21 16:56 Temperature 100.1 F H Pulse Rate 74 76 99 H Respiratory Rate 8 L 35 H 37 H Blood Pressure 151/85 H 170/81 H 194/96 H Pulse Oximetry 90 L 97 95 12/06/21 17:00 12/06/21 17:02 12/06/21 17:05 Temperature Pulse Rate 96 H 95 H 94 H Respiratory Rate 10 L 30 H 39 H Blood Pressure 183/94 H 178/86 H 184/101 H Pulse Oximetry 96 95 12/06/21 17:10 12/06/21 17:30 12/06/21 17:31 Temperature Pulse Rate 93 H 91 H 94 H Respiratory Rate 47 H 36 H 39 H Blood Pressure 184/89 H 179/84 H Pulse Oximetry 96 96 96 12/06/21 17:40 12/06/21 17:45 12/06/21 17:51 Temperature Pulse Rate 100 H 117 H 93 H Respiratory Rate 42 H 42 H 34 H Blood Pressure 193/96 H 195/105 H 151/102 H Pulse Oximetry 96 96 96 12/06/21 17:56 12/06/21 18:00 12/06/21 18:06 Temperature Pulse Rate 97 H 104 H 118 H Respiratory Rate 43 H 36 H 35 H Blood Pressure 179/99 H 165/109 H 164/88 H Pulse Oximetry 96 96 96 12/06/21 18:10 12/06/21 18:15 12/06/21 18:21 Temperature Pulse Rate 119 H 110 H 109 H Respiratory Rate 34 H 35 H 40 H Blood Pressure 193/91 H 173/84 H 183/93 H Pulse Oximetry 95 96 95 12/06/21 18:25 12/06/21 18:30 12/06/21 18:35 Temperature Pulse Rate 106 H 102 H 98 H Respiratory Rate 36 H 30 H 18 Blood Pressure 191/98 H 185/85 H 144/57 H Pulse Oximetry 94 95 12/06/21 18:41 12/06/21 18:45 12/06/21 18:50 Temperature Pulse Rate 93 H 86 83 Respiratory Rate 26 H 39 H 38 H Blood Pressure 134/81 141/76 H 151/95 H Pulse Oximetry 98 12/06/21 18:55 12/06/21 19:00 12/06/21 19:01 Temperature Pulse Rate 79 101 H 100 H Respiratory Rate 34 H 47 H 51 H Blood Pressure 149/71 H 154/100 H Pulse Oximetry 96 97 96 12/06/21 19:05 12/06/21 19:10 12/06/21 19:15 Temperature Pulse Rate 96 H 96 H 106 H Respiratory Rate 38 H 44 H 44 H Blood Pressure 153/87 H 172/92 H 188/82 H Pulse Oximetry 95 95 95 12/06/21 19:21 12/06/21 19:26 12/06/21 19:30 Temperature Pulse Rate 131 H 102 H 106 H Respiratory Rate 34 H 25 H 42 H Blood Pressure 157/102 H 169/90 H 145/77 H Pulse Oximetry 96 96 95 MDM - Altered Mental Status Lab Data Result diagrams: 12/06/21 16:47 12/06/21 16:47 Labs: Lab Results 12/06/21 12/06/21 12/06/21 Range/Units 16:47 16:47 16:47 WBC 21.8 H (4.5-11.0) X10^3/uL RBC 4.91 (4.0-5.2) X10^6/uL Hgb 13.4 (12.0-16.0) g/dL Hct 39.5 (36-46) % MCV 80.3 (80-100) fL MCH 27.3 (26-34) PG MCHC 34.0 (30-36) % RDW 14.4 (11.6-14.8) % Plt Count 216 (150-400) X10^3/uL Neut % (Auto) 94.9 H (50-75) % Lymph % (Auto) 3.0 L (25-40) % Brooks % (Auto) 2.1 L (3-14) % Eos % (Auto) 0.0 L (2-4) % Baso % (Auto) 0.0 (0-2) % Neut # (Auto) 88479 H (7611-7278) /uL Lymph # (Auto) 600 L (2367-9201) /uL Brooks # (Auto) 500 (0-900) /uL Eos # (Auto) 0 (0-450) /uL Baso # (Auto) 0 (0-100) /uL PT (10.1-12.7) SECONDS INR (0.9-1.3) APTT (26.4-36.2) SECONDS ABG pH (7.35-7.45) ABG pCO2 (35-45) mmHg ABG pO2 (80-100) mmHg ABG HCO3 (22-26) mmol/L ABG Total CO2 (21-31) mmol/L ABG O2 Saturation (95-100) % ABG Base Excess (-2-2) mmol/L FiO2 Sodium 127 L (137-145) mmol/L Potassium 3.3 L (3.4-5.1) mmol/L Chloride 89 L (98-107) mmol/L Carbon Dioxide 31 (22-32) mmol/L BUN 6 L (7-17) mg/dL Creatinine 0.41 L (0.52-1.04) mg/dL Estimated GFR > 60 (>60) mL/min BUN/Creatinine Ratio 14.6 (6-22) Glucose 165 H (80-110) mg/dL Lactate 1.8 (0.7-2.1) mmol/L Calcium 9.4 (8.4-10.2) mg/dL Total Bilirubin 0.9 (0.2-1.3) mg/dL AST 30 (14-36) IU/L ALT 15 (<35) IU/L Alkaline Phosphatase 71 (38-126) U/L Ammonia (9-30) umol/L Total Creatine Kinase 35 (30-135) U/L CK-MB (CK-2) TNP CK-MB (CK-2) Rel Index TNP Troponin I < 0.012 (0.01-0.034) ng/mL NT-Pro-B Natriuret Pep (<125) pg/mL Total Protein 8.0 (6.3-8.2) g/dL Albumin 4.3 (3.5-5.0) g/dL Globulin 3.7 (1.7-4.1) g/dL Albumin/Globulin Ratio 1.2 (1.0-2.8) Procalcitonin 0.20 (<0.5) ng/mL TSH (0.47-4.68) uIU/mL Prolactin 9.2 (3.0-18.6) ng/mL Urine Color Urine Appearance Urine pH (4.5-8.0) Ur Specific [place] (1.000-1.035) Urine Protein (Negative) Urine Glucose (UA) (Negative) g/dL Urine Ketones (NEGATIVE) Urine Occult Blood (Negative) Urine Nitrate (Negative) Urine Bilirubin (NEGATIVE) Urine Urobilinogen (0.2) E.U./dL Ur Leukocyte Esterase (NEGATIVE) Urine RBC (0-5/HPF) Urine WBC (0-5/HPF) Ur Squamous Epith Cells (0-5/HPF) Urine Bacteria (None) Ur Culture Indicated? Salicylates < 1.0 (<20) mg/dL U Opiates 300ng/mL cut (Negative) Ur Oxycodone Screen (Negative) Urine Methadone Screen (Negative) Acetaminophen < 10 (10-30) ug/mL Ur Barbiturates Screen (Negative) U Tricyclic Antidepress (Negative) Ur Phencyclidine Scrn (Negative) Ur Amphetamines Screen (Negative) U Methamphetamines Scrn (Negative) Ur MDMA Scrn (Ecstasy) (Negative) U Benzodiazepines Scrn (Negative) Urine Cocaine Screen (Negative) U Marijuana (THC) Screen (Negative) Ethyl Alcohol < 10 ( - 10) mg/dL 12/06/21 12/06/21 12/06/21 Range/Units 16:47 16:47 16:47 WBC (4.5-11.0) X10^3/uL RBC (4.0-5.2) X10^6/uL Hgb (12.0-16.0) g/dL Hct (36-46) % MCV (80-100) fL MCH (26-34) PG MCHC (30-36) % RDW (11.6-14.8) % Plt Count (150-400) X10^3/uL Neut % (Auto) (50-75) % Lymph % (Auto) (25-40) % Brooks % (Auto) (3-14) % Eos % (Auto) (2-4) % Baso % (Auto) (0-2) % Neut # (Auto) (4694-1970) /uL Lymph # (Auto) (5715-5013) /uL Brooks # (Auto) (0-900) /uL Eos # (Auto) (0-450) /uL Baso # (Auto) (0-100) /uL PT 11.9 (10.1-12.7) SECONDS INR 1.1 (0.9-1.3) APTT 31 (26.4-36.2) SECONDS ABG pH (7.35-7.45) ABG pCO2 (35-45) mmHg ABG pO2 (80-100) mmHg ABG HCO3 (22-26) mmol/L ABG Total CO2 (21-31) mmol/L ABG O2 Saturation (95-100) % ABG Base Excess (-2-2) mmol/L FiO2 Sodium (137-145) mmol/L Potassium (3.4-5.1) mmol/L Chloride (98-107) mmol/L Carbon Dioxide (22-32) mmol/L BUN (7-17) mg/dL Creatinine (0.52-1.04) mg/dL Estimated GFR (>60) mL/min BUN/Creatinine Ratio (6-22) Glucose (80-110) mg/dL Lactate (0.7-2.1) mmol/L Calcium (8.4-10.2) mg/dL Total Bilirubin (0.2-1.3) mg/dL AST (14-36) IU/L ALT (<35) IU/L Alkaline Phosphatase (38-126) U/L Ammonia < 9 L (9-30) umol/L Total Creatine Kinase (30-135) U/L CK-MB (CK-2) CK-MB (CK-2) Rel Index Troponin I (0.01-0.034) ng/mL NT-Pro-B Natriuret Pep (<125) pg/mL Total Protein (6.3-8.2) g/dL Albumin (3.5-5.0) g/dL Globulin (1.7-4.1) g/dL Albumin/Globulin Ratio (1.0-2.8) Procalcitonin (<0.5) ng/mL TSH 0.460 L (0.47-4.68) uIU/mL Prolactin (3.0-18.6) ng/mL Urine Color Urine Appearance Urine pH (4.5-8.0) Ur Specific [place] (1.000-1.035) Urine Protein (Negative) Urine Glucose (UA) (Negative) g/dL Urine Ketones (NEGATIVE) Urine Occult Blood (Negative) Urine Nitrate (Negative) Urine Bilirubin (NEGATIVE) Urine Urobilinogen (0.2) E.U./dL Ur Leukocyte Esterase (NEGATIVE) Urine RBC (0-5/HPF) Urine WBC (0-5/HPF) Ur Squamous Epith Cells (0-5/HPF) Urine Bacteria (None) Ur Culture Indicated? Salicylates (<20) mg/dL U Opiates 300ng/mL cut (Negative) Ur Oxycodone Screen (Negative) Urine Methadone Screen (Negative) Acetaminophen (10-30) ug/mL Ur Barbiturates Screen (Negative) U Tricyclic Antidepress (Negative) Ur Phencyclidine Scrn (Negative) Ur Amphetamines Screen (Negative) U Methamphetamines Scrn (Negative) Ur MDMA Scrn (Ecstasy) (Negative) U Benzodiazepines Scrn (Negative) Urine Cocaine Screen (Negative) U Marijuana (THC) Screen (Negative) Ethyl Alcohol ( - 10) mg/dL 12/06/21 12/06/21 12/06/21 Range/Units 16:47 17:05 17:28 WBC (4.5-11.0) X10^3/uL RBC (4.0-5.2) X10^6/uL Hgb (12.0-16.0) g/dL Hct (36-46) % MCV (80-100) fL MCH (26-34) PG MCHC (30-36) % RDW (11.6-14.8) % Plt Count (150-400) X10^3/uL Neut % (Auto) (50-75) % Lymph % (Auto) (25-40) % Brooks % (Auto) (3-14) % Eos % (Auto) (2-4) % Baso % (Auto) (0-2) % Neut # (Auto) (9269-2531) /uL Lymph # (Auto) (9548-4327) /uL Brooks # (Auto) (0-900) /uL Eos # (Auto) (0-450) /uL Baso # (Auto) (0-100) /uL PT (10.1-12.7) SECONDS INR (0.9-1.3) APTT (26.4-36.2) SECONDS ABG pH 7.52 H (7.35-7.45) ABG pCO2 37.0 (35-45) mmHg ABG pO2 74 L (80-100) mmHg ABG HCO3 30 H (22-26) mmol/L ABG Total CO2 32 H (21-31) mmol/L ABG O2 Saturation 96 (95-100) % ABG Base Excess 8.0 H (-2-2) mmol/L FiO2 40 Sodium (137-145) mmol/L Potassium (3.4-5.1) mmol/L Chloride (98-107) mmol/L Carbon Dioxide (22-32) mmol/L BUN (7-17) mg/dL Creatinine (0.52-1.04) mg/dL Estimated GFR (>60) mL/min BUN/Creatinine Ratio (6-22) Glucose (80-110) mg/dL Lactate (0.7-2.1) mmol/L Calcium (8.4-10.2) mg/dL Total Bilirubin (0.2-1.3) mg/dL AST (14-36) IU/L ALT (<35) IU/L Alkaline Phosphatase (38-126) U/L Ammonia (9-30) umol/L Total Creatine Kinase (30-135) U/L CK-MB (CK-2) CK-MB (CK-2) Rel Index Troponin I (0.01-0.034) ng/mL NT-Pro-B Natriuret Pep 181 H (<125) pg/mL Total Protein (6.3-8.2) g/dL Albumin (3.5-5.0) g/dL Globulin (1.7-4.1) g/dL Albumin/Globulin Ratio (1.0-2.8) Procalcitonin (<0.5) ng/mL TSH (0.47-4.68) uIU/mL Prolactin (3.0-18.6) ng/mL Urine Color Yellow Urine Appearance Clear Urine pH 7.5 (4.5-8.0) Ur Specific [place] 1.010 (1.000-1.035) Urine Protein Negative (Negative) Urine Glucose (UA) Negative (Negative) g/dL Urine Ketones Trace H (NEGATIVE) Urine Occult Blood Trace-lysed (Negative) Urine Nitrate Negative (Negative) Urine Bilirubin Negative (NEGATIVE) Urine Urobilinogen 0.2 (0.2) E.U./dL Ur Leukocyte Esterase Negative (NEGATIVE) Urine RBC 0-1/hpf (0-5/HPF) Urine WBC 0-1/hpf (0-5/HPF) Ur Squamous Epith Cells 0-1 /hpf (0-5/HPF) Urine Bacteria None seen (None) Ur Culture Indicated? Cult not indicated Salicylates (<20) mg/dL U Opiates 300ng/mL cut (Negative) Ur Oxycodone Screen (Negative) Urine Methadone Screen (Negative) Acetaminophen (10-30) ug/mL Ur Barbiturates Screen (Negative) U Tricyclic Antidepress (Negative) Ur Phencyclidine Scrn (Negative) Ur Amphetamines Screen (Negative) U Methamphetamines Scrn (Negative) Ur MDMA Scrn (Ecstasy) (Negative) U Benzodiazepines Scrn (Negative) Urine Cocaine Screen (Negative) U Marijuana (THC) Screen (Negative) Ethyl Alcohol ( - 10) mg/dL 12/06/21 Range/Units 17:51 WBC (4.5-11.0) X10^3/uL RBC (4.0-5.2) X10^6/uL Hgb (12.0-16.0) g/dL Hct (36-46) % MCV (80-100) fL MCH (26-34) PG MCHC (30-36) % RDW (11.6-14.8) % Plt Count (150-400) X10^3/uL Neut % (Auto) (50-75) % Lymph % (Auto) (25-40) % Brooks % (Auto) (3-14) % Eos % (Auto) (2-4) % Baso % (Auto) (0-2) % Neut # (Auto) (1590-7804) /uL Lymph # (Auto) (8370-6106) /uL Brooks # (Auto) (0-900) /uL Eos # (Auto) (0-450) /uL Baso # (Auto) (0-100) /uL PT (10.1-12.7) SECONDS INR (0.9-1.3) APTT (26.4-36.2) SECONDS ABG pH (7.35-7.45) ABG pCO2 (35-45) mmHg ABG pO2 (80-100) mmHg ABG HCO3 (22-26) mmol/L ABG Total CO2 (21-31) mmol/L ABG O2 Saturation (95-100) % ABG Base Excess (-2-2) mmol/L FiO2 Sodium (137-145) mmol/L Potassium (3.4-5.1) mmol/L Chloride (98-107) mmol/L Carbon Dioxide (22-32) mmol/L BUN (7-17) mg/dL Creatinine (0.52-1.04) mg/dL Estimated GFR (>60) mL/min BUN/Creatinine Ratio (6-22) Glucose (80-110) mg/dL Lactate (0.7-2.1) mmol/L Calcium (8.4-10.2) mg/dL Total Bilirubin (0.2-1.3) mg/dL AST (14-36) IU/L ALT (<35) IU/L Alkaline Phosphatase (38-126) U/L Ammonia (9-30) umol/L Total Creatine Kinase (30-135) U/L CK-MB (CK-2) CK-MB (CK-2) Rel Index Troponin I (0.01-0.034) ng/mL NT-Pro-B Natriuret Pep (<125) pg/mL Total Protein (6.3-8.2) g/dL Albumin (3.5-5.0) g/dL Globulin (1.7-4.1) g/dL Albumin/Globulin Ratio (1.0-2.8) Procalcitonin (<0.5) ng/mL TSH (0.47-4.68) uIU/mL Prolactin (3.0-18.6) ng/mL Urine Color Urine Appearance Urine pH (4.5-8.0) Ur Specific [place] (1.000-1.035) Urine Protein (Negative) Urine Glucose (UA) (Negative) g/dL Urine Ketones (NEGATIVE) Urine Occult Blood (Negative) Urine Nitrate (Negative) Urine Bilirubin (NEGATIVE) Urine Urobilinogen (0.2) E.U./dL Ur Leukocyte Esterase (NEGATIVE) Urine RBC (0-5/HPF) Urine WBC (0-5/HPF) Ur Squamous Epith Cells (0-5/HPF) Urine Bacteria (None) Ur Culture Indicated? Salicylates (<20) mg/dL U Opiates 300ng/mL cut Positive H (Negative) Ur Oxycodone Screen Negative (Negative) Urine Methadone Screen Negative (Negative) Acetaminophen (10-30) ug/mL Ur Barbiturates Screen Negative (Negative) U Tricyclic Antidepress Negative (Negative) Ur Phencyclidine Scrn Negative (Negative) Ur Amphetamines Screen Negative (Negative) U Methamphetamines Scrn Negative (Negative) Ur MDMA Scrn (Ecstasy) Negative (Negative) U Benzodiazepines Scrn Positive H (Negative) Urine Cocaine Screen Negative (Negative) U Marijuana (THC) Screen Negative (Negative) Ethyl Alcohol ( - 10) mg/dL Point of Care Testing Glucose POC [address] scan - head: Radiologist's Impression: [address] [address] [address] Scan Report Signed Patient: Rodriguez Ospina MR#: [id number] : 1955 Acct:[id number] Age/Sex: 66 / F Date of Service: 12/06/21 Loc: ED Accession Number: [id number] ?? Procedure: CT head/brain wo con Ordering Provider: Gini Navarrete D.O. PROCEDURE:? CT HEAD/BRAIN WO CON ? INDICATIONS:? decreased mental status ? TECHNIQUE:? Noncontrast 4.5 mm thick angled axial sections acquired from the foramen magnum to the vertex, with coronal and sagittal reformats.? For radiation dose reduction, the following was used:? automated exposure control, adjustment of mA and/or kV according to patient size.? ? COMPARISON:? [facility], CT, CT HEAD WITHOUT CONTRAST, 06/20/2019, 10:36. ? FINDINGS:? Image quality:? Excellent.? ? CSF spaces:? Basal cisterns are patent.? No extra-axial fluid collections.? The ventricles are symmetric in size and shape.? ? Brain:? No intracranial bleeds or masses.? There is mild cerebral volume loss for age, with resultant ventricular and sulcal prominence.? There are mild periventricular and deep white matter chronic small vessel ischemic changes.? There is intracranial internal carotid artery atherosclerosis.? ? Skull and face:? Calvarium and visualized facial bones appear intact, without suspicious lesions.? ? Sinuses:? Visualized sinuses and mastoids are clear.? ? IMPRESSION:? ? 1. No acute intracranial abnormalities. ? ? ? Dictated by: Coleen Rivera M.D. on 12/06/2021 at 17:19 ? ? Chest x-ray: Radiologist's Impression: XRay Report Signed Patient: Rodriguez Ospina MR#: [id number] : 1955 Acct:[id number] Age/Sex: 66 / F Date of Service: 12/06/21 Loc: ED Accession Number: [id number] ?? Procedure: XR chest 1V Ordering Provider: Gini Navarrete D.O. PROCEDURE:? XR CHEST 1V ? INDICATIONS:? decreased mental status, hx aspiration ? TECHNIQUE:? One view of the chest was acquired.? ? COMPARISON:? [facility], CR, XR CHEST 1V, 10/18/2021, 10:18. ? FINDINGS:? The patient is rotated. ? Surgical changes and devices:? None.? ? Lungs and pleura:? Persistent bilateral airspace opacities, concerning for pulmonary edema and/or multifocal pneumonia.? No large pleural effusion or pneumothorax. ? Mediastinum:? The cardiac silhouette is obscured. ? Bones and chest wall:? No suspicious bony lesions.? Overlying soft tissues appear unremarkable.? ? IMPRESSION:? Pulmonary edema versus multifocal pneumonia. ? ? Dictated by: Jeremy Hsu M.D. on 12/06/2021 at 17:15 ? ? ECG Data Interpretation: Sinus rhythm rate [address] changes PVC noted, similar to prior [facility] Narrative Medical decision making narrative: Patient initially presents with decreased responsiveness but quickly response to IM Narcan. Further workup is negative although she does have leukocytosis of 21,000. X-ray shows possible edema versus multifocal pneumonia. states that she has not had fever or cough that she has been at her baseline this morning and yesterday. She has a negative procalcitonin lactic acid. Unlikely to be infection at this time. Patient again begins to have decreasing mental status increased CO2 she is given IV Narcan at 7:00 p.m. and again clinically response. She is starting to feel slightly nauseous. Patient is on chronic opiates multiple opiate medications including fentanyl morphine and Dilaudid. She her mental status improves with Narcan this seems to be an opiate overdose unintentional normal. has been in charge of her medication for a long time he reports not giving her extra in fact decreasing her morphine dose today. She may need a Narcan drip, at this time she will need observation. Dr. Narvaez in ED dizzy and evaluate patient. Agrees with holding off Narcan drip for now and continuing pushes also requests Zosyn for possible pneumonia. Discharge Plan Departure Patient Disposition: Admitted As Inpatient Clinical Impression: Opioid overdose Admit Date/Time: 12/06/21 20:28 Admit Provider: Bernardo Narvaez
--- NOTE | 2021-12-06 16:51 | DI.RAD.S_ITS ---
PROCEDURE: XR CHEST 1V INDICATIONS: decreased mental status, hx aspiration TECHNIQUE: One view of the chest was acquired. COMPARISON: [facility], CR, XR CHEST 1V, 10/18/2021, 10:18. FINDINGS: The patient is rotated. Surgical changes and devices: None. Lungs and pleura: Persistent bilateral airspace opacities, concerning for pulmonary edema and/or multifocal pneumonia. No large pleural effusion or pneumothorax. Mediastinum: The cardiac silhouette is obscured. Bones and chest wall: No suspicious bony lesions. Overlying soft tissues appear unremarkable. IMPRESSION: Pulmonary edema versus multifocal pneumonia. Dictated by: Jeremy Hsu M.D. on 12/06/2021 at 17:15 Approved by: Jeremy Hsu M.D. on 12/06/2021 at 17:16
--- NOTE | 2021-12-06 16:51 | DI.CT.S_ITS ---
PROCEDURE: CT HEAD/BRAIN WO CON INDICATIONS: decreased mental status TECHNIQUE: Noncontrast 4.5 mm thick angled axial sections acquired from the foramen magnum to the vertex, with coronal and sagittal reformats. For radiation dose reduction, the following was used: automated exposure control, adjustment of mA and/or kV according to patient size. COMPARISON: [facility], CT, CT HEAD WITHOUT CONTRAST, 06/20/2019, 10:36. FINDINGS: Image quality: Excellent. CSF spaces: Basal cisterns are patent. No extra-axial fluid collections. The ventricles are symmetric in size and shape. Brain: No intracranial bleeds or masses. There is mild cerebral volume loss for age, with resultant ventricular and sulcal prominence. There are mild periventricular and deep white matter chronic small vessel ischemic changes. There is intracranial internal carotid artery atherosclerosis. Skull and face: Calvarium and visualized facial bones appear intact, without suspicious lesions. Sinuses: Visualized sinuses and mastoids are clear. IMPRESSION: 1. No acute intracranial abnormalities. Dictated by: Coleen Rivera M.D. on 12/06/2021 at 17:19 Approved by: Coleen Rivera M.D. on 12/06/2021 at 17:21
[2021-12-06 17:15] LABS: PO2 ABG 74 mmHg (80-100); pH ABG 7.52 (7.35-7.45)
[2021-12-06 17:16] LABS: Fractionated Inspired Oxygen 40; HCO3 ABG 30 mmol/L (22-26); Oxygen Saturation ABG 96 % (95-100); TCO2 ABG 32 mmol/L (21-31)
[2021-12-06 17:18] LABS: Add Manual Diff / Slide Review NO; Basophils Absolute Auto 0 /uL (0-100); Eosinophils Absolute Auto 0 /uL (0-450); Hematocrit 39.5 % (36-46); Hemoglobin 13.4 g/dL (12.0-16.0); Lymphocytes Absolute Auto 600 /uL (1100-4500); Mean Corpuscular Hemoglobin 27.3 PG (26-34); Mean Corpuscular Volume 80.3 fL (80-100); Monocytes Absolute Auto 500 /uL (0-900); Monocytes Percent Auto 2.1 % (3-14); Neutrophils Absolute Auto 20700 /uL (1500-7000); Neutrophils Percent Auto 94.9 % (50-75); Platelet Count 216 X10^3/uL (150-400); Red Blood Cell Count 4.91 X10^6/uL (4.0-5.2); Red Cell Distribution Width 14.4 % (11.6-14.8); White Blood Cell Count 21.8 X10^3/uL (4.5-11.0)
[2021-12-06 17:20] LABS: INR 1.1 (0.9-1.3); Prothrombin Time 11.9 SECONDS (10.1-12.7)
[2021-12-06 17:22] LABS: PTT Partial Thromboplastin Tim 31 SECONDS (26.4-36.2)
[2021-12-06 17:24] LABS: Ammonia (NH3) < 9 umol/L (9-30)
[2021-12-06 17:26] LABS: Acetaminophen < 10 ug/mL (10-30); Alanine Aminotransferase 15 IU/L (<35); Albumin 4.3 g/dL (3.5-5.0); Albumin Globulin Ratio 1.2 (1.0-2.8); Alkaline Phosphatase 71 U/L (38-126); Aspartate Aminotransferase 30 IU/L (14-36); BUN Creatinine Ratio 14.6 (6-22); Bilirubin Total 0.9 mg/dL (0.2-1.3); Blood Urea Nitrogen 6 mg/dL (7-17); Calcium 9.4 mg/dL (8.4-10.2); Carbon Dioxide 31 mmol/L (22-32); Chloride 89 mmol/L (98-107); Creatine Kinase 35 U/L (30-135); Estimated Glomerular Filt Rate > 60 mL/min (>60); Ethanol (ETOH) < 10 mg/dL; Globulin 3.7 g/dL (1.7-4.1); Glucose 165 mg/dL (80-110); HEMOLYSIS < 15 (0-50); Lactate (Lactic Acid) 1.8 mmol/L (0.7-2.1); Potassium 3.3 mmol/L (3.4-5.1); Salicylate < 1.0 mg/dL (<20); Sodium 127 mmol/L (137-145)
[2021-12-06 17:38] LABS: Troponin I < 0.012 ng/mL (0.01-0.034)
[2021-12-06] MEDS: SODIUM CHLORIDE 0.9% 1,000 ML 150 ML IV (17:39)
[2021-12-06 17:42] LABS: Prolactin 9.2 ng/mL (3.0-18.6)
[2021-12-06 18:09] LABS: UR Morphine/Opiate cutoff 300 Positive (Negative); Ur Creatinine Normal (Normal); Ur Specific Gravity Normal (Normal); Urine Amphetamines Negative (Negative); Urine Barbiturates Negative (Negative); Urine Benzodiazepines Positive (Negative); Urine Cocaine Negative (Negative); Urine MDMA Negative (Negative); Urine Methadone Negative (Negative); Urine Methamphetamines Negative (Negative); Urine Oxycodone Negative (Negative); Urine Phencyclidine Negative (Negative); Urine Tetrahydrocannabinol Negative (Negative); Urine Tricyclic Antidepressant Negative (Negative); Urine pH Normal (Normal)
[2021-12-06 18:10] LABS: Appearance Urine UA CLEAR; Bilirubin Urine UA NEGATIVE (NEGATIVE); Color Urine UA YELLOW; Glucose Urine UA NEGATIVE (Negative); Ketones Urine UA TRACE (NEGATIVE); Leukocyte Esterase Urine UA NEGATIVE (NEGATIVE); Nitrite Urine UA NEGATIVE (Negative); Occult Blood Urine UA TRACE-LYSED (Negative); Protein Urine UA NEGATIVE (Negative); Urobilinogen Urine UA 0.2 E.U./dL (0.2)
[2021-12-06 18:12] LABS: pH Urine UA 7.5 (4.5-8.0)
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
[2021-12-06 18:21] LABS: Bacteria Urine None Seen; Culture Indicated Urine Cult Not Indicated; RBC Urine 0-1/HPF (0-5/HPF); Squamous Epithelial Cell Urine 0-1 /HPF (0-5/HPF); WBC Urine 0-1/HPF (0-5/HPF)
--- NOTE | 2021-12-06 18:53 | PC.NURSE ---
pt okay to use commode per provider. pt is alert enough to stand and transfer
[2021-12-06 19:00] LABS: NT-proBNP (BNP-Adult 18+) 181 pg/mL (<125)
[2021-12-06] MEDS: NALOXONE 0.4 MG/ML VIAL IV ×2 (19:01→20:35)
[2021-12-06] MEDS: ONDANSETRON 4 MG/2 ML INJ IV (19:14)
--- NOTE | 2021-12-06 19:38 | PC.NURSE ---
Addendum entered by Sabine Boothe R.N. 12/06/21 19:51: late entry [id number] Original Note: arrived to room with triage nurse and two additional nurses, provider requested immediately. pt responsive to painful stimuli, order obtained for narcan per provider. IV access obtained, RT and code cart to bedside. pt increased responsiveness to her name and questions from provider. Pt then taken to CT with teletypesetter monitor in place and nurse at bedside. Pt tolerated well.
--- NOTE | 2021-12-06 19:44 | PC.NURSE ---
1900 pt had finished having BM at bedside commode and became drowsy and leaning, assisted back to bed. provider requested to room, verbal order obtained for narcan. provider remained in room while dose given to pt. Pt began stretching and moving her legs after administration of narcan.
[2021-12-06] MEDS: PIPERACILLIN/TAZO 4.5 GM in SODIUM CHLORIDE 0.9% 100 ML 200 ML IV (20:32)
[2021-12-06 20:46] LABS: COVID19 -Nasal RAPID Negative (Negative)
[2021-12-06 21:30] LABS: Magnesium 1.7 mg/dL (1.6-2.3); Phosphorous 3.3 mg/dL (2.8-4.1)
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
[2021-12-06] MEDS: HEPARIN 5,000 UNIT/ML VIAL 5000 UNIT SUBCUT (21:48)
[2021-12-06] MEDS: FUROSEMIDE 40 MG/4 ML VIAL IV (21:48)
[2021-12-06] MEDS: POTASSIUM CHLORIDE IN WATER 10 MEQ/100 ML PIGGYBACK 100 MEQ IV ×3 (21:49→23:51)
[2021-12-06] MEDS: NALOXONE 2 MG in SODIUM CHLORIDE 0.9% 500 ML 62.75 ML IV (22:02)
[2021-12-06] MEDS: AZITHROMYCIN 500 MG in DEXTROSE 5% IN WATER 250 ML IV (22:19)
[2021-12-06] MEDS: VANCOMYCIN 1,500 MG/300 ML PIGGYBACK 167 MG IV (23:46)
--- NOTE | 2021-12-06 23:46 | PM.CN.EICU ---
History of Present Illness Consult details Date Patient Seen: 12/06/21 Chief complaint: nausea, unresponsive :: This patient was seen via real time interactive two-way audiovisual telecommunication. Narrative: 66 y.o. female w/ PMHx of J-tube after Mendez fundoplication, opioid dependence/chronic pain, HTN and chronic hypoxic respiratory failure who presented to ED with nausea and unresponsiveness. She was given naloxone 1.2 mg x 1 and 0.4 mg x 2 with immediate but short-lived improvement in mentation. NCHCT was (-). WBC was 21,800 and pCXR showed bilateral opacities concerning for multifocal pneumonia +/- edema. She was cultured and started on vancomycin/Zosyn/azithromycin. Admitted to ICU on a Narcan infusion. Serum EtOH, salicylate and acetaminophen levels were (-). Home medication list is notable for carisoprodol 350 mg q4H PRN, transdermal fentanyl 100 mcg/hr, diazepam 5 mg q8H PRN, citalopram 20 mg q24H, promethazine 25-50 mg q6H PRN, morphine 30 mg q6H PRN, and Benadryl 25- 50 mg q4-6H PRN. [facility] Medical History Accident Chronic low back pain (01/07/06) Chronic narcotic dependence Depression Fusion of lumbar spine Hormone replacement therapy (postmenopausal) (07/03/05) Late eff spine/trunk fx (08/16/05) Unspecified essential hypertension (07/03/05) Surgical History H/O hysterectomy for benign disease History of cholecystectomy History of Mendez fundoplication Status post thoracic spinal fusion Status post-operative repair of hip fracture Family History Mother Alzheimer disease Father Pneumonia Social History household members: spouse and caregiver Smoking Status: Never smoker alcohol intake: current Current Medications Current Medications Medications: Home Medications CHOLECALCIFEROL (VITAMIN D) 2,000 iu TUBE BID #0 09/04/12 [History Confirmed 12/06/21] albuterol sulfate 90 mcg/actuation aerosol inhaler (Proventil HFA) 2 puff INH Q4HP PRN #8.5 gm 09/04/12 [History Confirmed 12/06/21] carisoprodol 350 mg tablet 1 tab TUBE Q4H PRN #0 09/04/12 [History Confirmed 12/06/21] diazepam 5 mg tablet 10 mg PO Q8H PRN #0 09/04/12 [History Confirmed 12/06/21] fentanyl 100 mcg/hr transdermal patch 200 mcg TOPICAL Q72H #0 09/04/12 [History Confirmed 12/06/21] omeprazole 40 mg-sodium bicarbonate 1,680 mg oral packet (Zegerid) 2 pkt FEEDING TUBE BID #0 09/04/12 [History Confirmed 12/06/21] polyethylene glycol 3350 17 gram/dose oral powder 17 gm FEEDING TUBE PRN PRN #0 09/04/12 [History Confirmed 12/06/21] DIPHENOXYLATE/ATROPINE SULFATE (DIPHENOXYLATE/ATROPINE) 1 - 2 tab FEEDING TUBE QIDP PRN #0 09/07/12 [History Confirmed 12/06/21] albuterol sulfate 3 ml INH PRN PRN #0 09/07/12 [History Confirmed 12/06/21] citalopram 10 mg/5 mL oral solution 20 mg TUBE QDAY #0 09/07/12 [History Confirmed 12/06/21] ondansetron HCl 4 mg/5 mL oral solution (Zofran) 1 - 2 tsp TUBE Q6HP PRN #0 09/07/12 [History Confirmed 12/06/21] promethazine 25 mg tablet 1 - 2 tab TUBE Q6HP PRN #0 09/07/12 [History Confirmed 12/06/21] Ketoconazole 1 glenis TOPICAL PRN PRN #0 12/23/16 [History Confirmed 12/06/21] amlodipine 10 mg tablet 10 mg FEEDING TUBE QDAY #0 12/23/16 [History Confirmed 12/06/21] cyclosporine 0.05 % eye drops in a dropperette (Restasis) 1 drp/day EYE-BOTH BID #0 12/23/16 [History Confirmed 12/06/21] desonide 0.05 % lotion 1 glenis TOPICAL PRN PRN #0 12/23/16 [History Confirmed 12/06/21] potassium chloride 20 mEq/15 mL oral liquid 5.625 ml FEEDING TUBE DAILY #0 12/23/16 [History Confirmed 12/06/21] diphenhydramine HCl 25 mg capsule (Benadryl) 1 - 2 tab FEEDING TUBE Q4-6H PRN 05/24/18 [History Confirmed 12/06/21] mupirocin 2 % topical ointment 1 applic TOPICAL TID 05/24/18 [History Confirmed 12/06/21] nut.tx.impaired digest fxn 0.068 gram-1.5 kcal/mL oral liquid (Peptamen 1.5) 750 ml FEEDING TUBE QPM 05/24/18 [History Confirmed 12/06/21] cyanocobalamin (vitamin B-12) 1,000 mcg tablet 1,000 mcg PO BID 06/09/21 [History Confirmed 12/06/21] morphine 10 mg/5 mL oral solution 30 mg FEEDING TUBE Q6H PRN 06/09/21 [History Confirmed 12/06/21] naloxone 4 mg/actuation nasal spray (Narcan) 4 mg INTRANASAL Q3M PRN 06/09/21 [History Confirmed 12/06/21] sennosides 8.6 mg tablet (senna) 8.6 mg PO BEDTIME PRN 06/09/21 [History Confirmed 12/06/21] triamcinolone acetonide 0.5 % topical cream 1 applic TOPICAL BID PRN 06/09/21 [History Confirmed 12/06/21] fentanyl 50 mcg/hr transdermal patch 50 mcg TOPICAL Q72H 12/06/21 [History Confirmed 12/06/21] hydromorphone 8 mg tablet 8 mg FEEDING TUBE TID PRN MDD 24 12/06/21 [History Confirmed 12/06/21] Visit Medications (administered) Generic Name Dose Route Start Last Admin Trade Name Freq PRN Reason Stop Dose Admin Azithromycin 500 mg/ Dextrose 250 mls @ 250 mls/hr 12/06/21 22:00 12/06/21 23:46 IV Infused Q24H SHIMON Infusion Naloxone HCl 2 mg/ Sodium 502 mls @ 62.75 mls/hr 12/06/21 21:19 12/06/21 22:02 Chloride IV 0.25 mg/hr TITRATE SHIMON 62.75 mls/hr Administration Protocol 0.25 MG/HR POTASSIUM CHLORIDE IN WATER 10 meq in 100 mls @ 100 mls/hr 12/06/21 21:30 12/06/21 22:56 Potassium Cl 10 Meq/100 Ml Hemalatha IV 12/07/21 01:29 100 mls/hr Q1H SHIMON Administration Vancomycin HCl/Dextrose 1,500 mg in 300 mls @ 167 mls/hr 12/06/21 22:00 12/06/21 23:46 Vancomycin IV 12/06/21 23:47 167 mls/hr NOW ONE Administration Review of Systems Review of Systems Narrative: not possible due to lethargy Exam Vital Signs (past 8 hours): - 12/06/21 16:47 12/06/21 16:50 12/06/21 16:56 Temperature 100.1 F H Pulse Rate 74 76 99 H Respiratory Rate 8 L 35 H 37 H Blood Pressure 151/85 H 170/81 H 194/96 H Pulse Oximetry 90 L 97 95 12/06/21 17:00 12/06/21 17:02 12/06/21 17:05 Temperature Pulse Rate 96 H 95 H 94 H Respiratory Rate 10 L 30 H 39 H Blood Pressure 183/94 H 178/86 H 184/101 H Pulse Oximetry 96 95 12/06/21 17:10 12/06/21 17:30 12/06/21 17:31 Temperature Pulse Rate 93 H 91 H 94 H Respiratory Rate 47 H 36 H 39 H Blood Pressure 184/89 H 179/84 H Pulse Oximetry 96 96 96 12/06/21 17:40 12/06/21 17:45 12/06/21 17:51 Temperature Pulse Rate 100 H 117 H 93 H Respiratory Rate 42 H 42 H 34 H Blood Pressure 193/96 H 195/105 H 151/102 H Pulse Oximetry 96 96 96 12/06/21 17:56 12/06/21 18:00 12/06/21 18:06 Temperature Pulse Rate 97 H 104 H 118 H Respiratory Rate 43 H 36 H 35 H Blood Pressure 179/99 H 165/109 H 164/88 H Pulse Oximetry 96 96 96 12/06/21 18:10 12/06/21 18:15 12/06/21 18:21 Temperature Pulse Rate 119 H 110 H 109 H Respiratory Rate 34 H 35 H 40 H Blood Pressure 193/91 H 173/84 H 183/93 H Pulse Oximetry 95 96 95 12/06/21 18:25 12/06/21 18:30 12/06/21 18:35 Temperature Pulse Rate 106 H 102 H 98 H Respiratory Rate 36 H 30 H 18 Blood Pressure 191/98 H 185/85 H 144/57 H Pulse Oximetry 94 95 12/06/21 18:41 12/06/21 18:45 12/06/21 18:50 Temperature Pulse Rate 93 H 86 83 Respiratory Rate 26 H 39 H 38 H Blood Pressure 134/81 141/76 H 151/95 H Pulse Oximetry 98 12/06/21 18:55 12/06/21 19:00 12/06/21 19:01 Temperature Pulse Rate 79 101 H 100 H Respiratory Rate 34 H 47 H 51 H Blood Pressure 149/71 H 154/100 H Pulse Oximetry 96 97 96 12/06/21 19:05 12/06/21 19:10 12/06/21 19:15 Temperature Pulse Rate 96 H 96 H 106 H Respiratory Rate 38 H 44 H 44 H Blood Pressure 153/87 H 172/92 H 188/82 H Pulse Oximetry 95 95 95 12/06/21 19:21 12/06/21 19:26 12/06/21 19:30 Temperature Pulse Rate 131 H 102 H 106 H Respiratory Rate 34 H 25 H 42 H Blood Pressure 157/102 H 169/90 H 145/77 H Pulse Oximetry 96 96 95 12/06/21 19:36 12/06/21 19:40 12/06/21 19:45 Temperature Pulse Rate 104 H 110 H 103 H Respiratory Rate 36 H 31 H 23 Blood Pressure 146/97 H 170/91 H 169/79 H Pulse Oximetry 96 94 94 12/06/21 19:50 12/06/21 19:55 12/06/21 20:00 Temperature Pulse Rate 99 H 105 H 97 H Respiratory Rate 19 25 H 27 H Blood Pressure 171/86 H 141/76 H 167/78 H Pulse Oximetry 91 96 94 12/06/21 20:11 12/06/21 20:15 12/06/21 20:20 Temperature Pulse Rate 85 85 85 Respiratory Rate 27 H 21 26 H Blood Pressure 175/81 H 161/77 H 172/79 H Pulse Oximetry 94 94 94 12/06/21 20:25 12/06/21 20:30 12/06/21 20:35 Temperature Pulse Rate 81 86 88 Respiratory Rate 27 H 31 H 31 H Blood Pressure 165/77 H 175/81 H 173/82 H Pulse Oximetry 94 95 95 12/06/21 20:40 12/06/21 20:45 12/06/21 20:50 Temperature Pulse Rate 101 H 97 H 96 H Respiratory Rate 47 H 31 H 23 Blood Pressure 163/81 H 163/88 H 173/90 H Pulse Oximetry 97 96 97 12/06/21 21:00 12/06/21 21:05 12/06/21 21:12 Temperature 99.7 F H Pulse Rate 96 H 107 H 96 H Respiratory Rate 32 H 22 Blood Pressure 190/92 H 190/92 H Pulse Oximetry 96 83 L 96 12/06/21 21:22 12/06/21 21:29 12/06/21 21:30 Temperature Pulse Rate 90 89 90 Respiratory Rate 29 H 26 H 23 Blood Pressure 176/95 H 166/81 H Pulse Oximetry 98 98 97 12/06/21 22:00 12/06/21 22:30 12/06/21 23:00 Temperature Pulse Rate 91 H 73 79 Respiratory Rate 30 H 37 H 22 Blood Pressure 183/88 H 164/85 H 172/96 H Pulse Oximetry 97 96 97 Oxygen Delivery Method Nasal Cannula Oxygen Flow Rate 2 Const General: lethargic Resp Effort & Inspection: normal respiratory effort Neuro Other: eyes closed but moving all 4 extremities spontaneously Objective Labs Result Diagrams: 12/06/21 16:47 12/06/21 16:47 Labs: Laboratory Results - last 24 hr 12/06/21 12/06/21 12/06/21 16:47 16:47 16:47 WBC 21.8 H RBC 4.91 Hgb 13.4 Hct 39.5 MCV 80.3 MCH 27.3 MCHC 34.0 RDW 14.4 Plt Count 216 Neut % (Auto) 94.9 H Lymph % (Auto) 3.0 L [place] % (Auto) 2.1 L Eos % (Auto) 0.0 L Baso % (Auto) 0.0 Neut # (Auto) 99171 H Lymph # (Auto) 600 L [place] # (Auto) 500 Eos # (Auto) 0 Baso # (Auto) 0 PT INR APTT ABG pH ABG pCO2 ABG pO2 ABG HCO3 ABG Total CO2 ABG O2 Saturation ABG Base Excess FiO2 Sodium 127 L Potassium 3.3 L Chloride 89 L Carbon Dioxide 31 BUN 6 L Creatinine 0.41 L Estimated GFR > 60 BUN/Creatinine Ratio 14.6 Glucose 165 H Lactate 1.8 Calcium 9.4 Phosphorus Magnesium Total Bilirubin 0.9 AST 30 ALT 15 Alkaline Phosphatase 71 Ammonia Total Creatine Kinase 35 CK-MB (CK-2) TNP CK-MB (CK-2) Rel Index TNP Troponin I < 0.012 NT-Pro-B Natriuret Pep Total Protein 8.0 Albumin 4.3 Globulin 3.7 Albumin/Globulin Ratio 1.2 Procalcitonin 0.20 TSH Prolactin 9.2 Urine Color Urine Appearance Urine pH Ur Specific [place] Urine Protein Urine Glucose (UA) Urine Ketones Urine Occult Blood Urine Nitrate Urine Bilirubin Urine Urobilinogen Ur Leukocyte Esterase Urine RBC Urine WBC Ur Squamous Epith Cells Urine Bacteria Ur Culture Indicated? Salicylates < 1.0 U Opiates 300ng/mL cut Ur Oxycodone Screen Urine Methadone Screen Acetaminophen < 10 Ur Barbiturates Screen U Tricyclic Antidepress Ur Phencyclidine Scrn Ur Amphetamines Screen U Methamphetamines Scrn Ur MDMA Scrn (Ecstasy) U Benzodiazepines Scrn Urine Cocaine Screen U Marijuana (THC) Screen Ethyl Alcohol < 10 SARS-CoV-2 (PCR) 12/06/21 12/06/21 12/06/21 16:47 16:47 16:47 WBC RBC Hgb Hct MCV MCH MCHC RDW Plt Count Neut % (Auto) Lymph % (Auto) [place] % (Auto) Eos % (Auto) Baso % (Auto) Neut # (Auto) Lymph # (Auto) [place] # (Auto) Eos # (Auto) Baso # (Auto) PT 11.9 INR 1.1 APTT 31 ABG pH ABG pCO2 ABG pO2 ABG HCO3 ABG Total CO2 ABG O2 Saturation ABG Base Excess FiO2 Sodium Potassium Chloride Carbon Dioxide BUN Creatinine Estimated GFR BUN/Creatinine Ratio Glucose Lactate Calcium Phosphorus Magnesium Total Bilirubin AST ALT Alkaline Phosphatase Ammonia < 9 L Total Creatine Kinase CK-MB (CK-2) CK-MB (CK-2) Rel Index Troponin I NT-Pro-B Natriuret Pep Total Protein Albumin Globulin Albumin/Globulin Ratio Procalcitonin TSH 0.460 L Prolactin Urine Color Urine Appearance Urine pH Ur Specific [place] Urine Protein Urine Glucose (UA) Urine Ketones Urine Occult Blood Urine Nitrate Urine Bilirubin Urine Urobilinogen Ur Leukocyte Esterase Urine RBC Urine WBC Ur Squamous Epith Cells Urine Bacteria Ur Culture Indicated? Salicylates U Opiates 300ng/mL cut Ur Oxycodone Screen Urine Methadone Screen Acetaminophen Ur Barbiturates Screen U Tricyclic Antidepress Ur Phencyclidine Scrn Ur Amphetamines Screen U Methamphetamines Scrn Ur MDMA Scrn (Ecstasy) U Benzodiazepines Scrn Urine Cocaine Screen U Marijuana (THC) Screen Ethyl Alcohol SARS-CoV-2 (PCR) 12/06/21 12/06/21 12/06/21 16:47 16:47 16:56 WBC RBC Hgb Hct MCV MCH MCHC RDW Plt Count Neut % (Auto) Lymph % (Auto) [place] % (Auto) Eos % (Auto) Baso % (Auto) Neut # (Auto) Lymph # (Auto) [place] # (Auto) Eos # (Auto) Baso # (Auto) PT INR APTT ABG pH ABG pCO2 ABG pO2 ABG HCO3 ABG Total CO2 ABG O2 Saturation ABG Base Excess FiO2 Sodium Potassium Chloride Carbon Dioxide BUN Creatinine Estimated GFR BUN/Creatinine Ratio Glucose Lactate Calcium Phosphorus 3.3 Magnesium 1.7 Total Bilirubin AST ALT Alkaline Phosphatase Ammonia Total Creatine Kinase CK-MB (CK-2) CK-MB (CK-2) Rel Index Troponin I NT-Pro-B Natriuret Pep 181 H Total Protein Albumin Globulin Albumin/Globulin Ratio Procalcitonin TSH Prolactin Urine Color Urine Appearance Urine pH Ur Specific [place] Urine Protein Urine Glucose (UA) Urine Ketones Urine Occult Blood Urine Nitrate Urine Bilirubin Urine Urobilinogen Ur Leukocyte Esterase Urine RBC Urine WBC Ur Squamous Epith Cells Urine Bacteria Ur Culture Indicated? Salicylates U Opiates 300ng/mL cut Ur Oxycodone Screen Urine Methadone Screen Acetaminophen Ur Barbiturates Screen U Tricyclic Antidepress Ur Phencyclidine Scrn Ur Amphetamines Screen U Methamphetamines Scrn Ur MDMA Scrn (Ecstasy) U Benzodiazepines Scrn Urine Cocaine Screen U Marijuana (THC) Screen Ethyl Alcohol SARS-CoV-2 (PCR) Negative 12/06/21 12/06/21 12/06/21 17:05 17:28 17:51 WBC RBC Hgb Hct MCV MCH MCHC RDW Plt Count Neut % (Auto) Lymph % (Auto) [place] % (Auto) Eos % (Auto) Baso % (Auto) Neut # (Auto) Lymph # (Auto) [place] # (Auto) Eos # (Auto) Baso # (Auto) PT INR APTT ABG pH 7.52 H ABG pCO2 37.0 ABG pO2 74 L ABG HCO3 30 H ABG Total CO2 32 H ABG O2 Saturation 96 ABG Base Excess 8.0 H FiO2 40 Sodium Potassium Chloride Carbon Dioxide BUN Creatinine Estimated GFR BUN/Creatinine Ratio Glucose Lactate Calcium Phosphorus Magnesium Total Bilirubin AST ALT Alkaline Phosphatase Ammonia Total Creatine Kinase CK-MB (CK-2) CK-MB (CK-2) Rel Index Troponin I NT-Pro-B Natriuret Pep Total Protein Albumin Globulin Albumin/Globulin Ratio Procalcitonin TSH Prolactin Urine Color Yellow Urine Appearance Clear Urine pH 7.5 Ur Specific [place] 1.010 Urine Protein Negative Urine Glucose (UA) Negative Urine Ketones Trace H Urine Occult Blood Trace-lysed Urine Nitrate Negative Urine Bilirubin Negative Urine Urobilinogen 0.2 Ur Leukocyte Esterase Negative Urine RBC 0-1/hpf Urine WBC 0-1/hpf Ur Squamous Epith Cells 0-1 /hpf Urine Bacteria None seen Ur Culture Indicated? Cult not indicated Salicylates U Opiates 300ng/mL cut Positive H Ur Oxycodone Screen Negative Urine Methadone Screen Negative Acetaminophen Ur Barbiturates Screen Negative U Tricyclic Antidepress Negative Ur Phencyclidine Scrn Negative Ur Amphetamines Screen Negative U Methamphetamines Scrn Negative Ur MDMA Scrn (Ecstasy) Negative U Benzodiazepines Scrn Positive H Urine Cocaine Screen Negative U Marijuana (THC) Screen Negative Ethyl Alcohol SARS-CoV-2 (PCR) Assessment & Plan Assessment and plan (1) Acute and chronic respiratory failure with hypoxia: Problem details: Due to opioid misuse/OD and aspiration pneumonia Status: Acute Plan: -Continue vancomycin/Zosyn/azithromycin -Aspiration precautions -Contoinue naloxone infusion and titrate to RASS 0 to -2. Watch for prolonged QTc on naloxone infusion and maintain normokalemia and normomagnesemia (2) Opioid overdose: Qualifiers: Encounter type: initial encounter Injury intent: undetermined intent Qualified Code(s): T40.2X4A - Poisoning by other opioids, undetermined, initial encounter Status: Acute Plan: -see problem #1 (3) Aspiration pneumonia: Status: Acute Plan: -see problem #1 (4) Hyponatremia: Status: Acute Plan: -Follow -Lasix given for possible pulmonary edema (which may be negative pressure in etiology) should help (5) Hypokalemia: Status: Acute Plan: -Correct -See problem #1 re: QTc monitoring while receiving naloxone
[2021-12-07] VITALS (52 sets, daily range): BP systolic 71–200; BP diastolic 45–128; PULSE 45–110; RESP 2–44; TEMP 36.1–37.7; O2SAT 95–100
--- NOTE | 2021-12-07 | DI.CT.S_ITS ---
PROCEDURE: CT ANGIO CHEST PE PROTOCOL INDICATIONS: CONCERN FOR PE TECHNIQUE: After the administration of intravenous contrast, 2 mm thick sections acquired from the pulmonary apices to the posterior costophrenic angles. 3-dimensional maximum intensity projection (MIP) coronal and sagittal reformats were then acquired through the thorax. For radiation dose reduction, the following was used: automated exposure control, adjustment of mA and/or kV according to patient size. COMPARISON: [facility], CR, XR PERCUTANEOUS DUODENUM JUJENUM TUBE CHANGE, 09/07/2021, 9:36. [facility], CT, CT ABDOMEN PELVIS W CON, 12/07/2021, 16:00. [facility], CT, CT ANGIO CHEST PE PROTOCOL, 06/11/2021, 10:33. FINDINGS: Image quality: Excellent. Lungs and pleura: Right lower lobe and left lower lobe consolidation is seen consistent with atelectasis or pneumonia with superimposed diffuse ground-glass opacities either infectious or due to pulmonary edema from CHF. No pleural effusions or pneumothorax. Central and peripheral airways are patent and normal in caliber. Endotracheal tube is well positioned above the rehana. Mediastinum: Heart size is normal. No pericardial effusion. No mediastinal adenopathy by size criteria. Thoracic aorta and central pulmonary arteries are normal in size. Esophagus is patulous. There is a moderate-sized hiatal hernia. Bones and chest wall: Degenerative changes with no focal abnormality. No vertebral body compression fractures. No axillary or supraclavicular adenopathy by size criteria. Thyroid gland is diffusely enlarged, unchanged compared to prior CT. Abdomen: Intrahepatic bile ducts are dilated. The patient is status post cholecystectomy. A duodenal diverticulum is present. There is a jejunostomy tube which extends from the ileum/jejunum and loops back with the tip proximally into the 2nd portion of the duodenum. IMPRESSION: 1. No pulmonary embolism. 2. Bilateral lower lobe consolidation consistent with atelectasis and/or pneumonia with superimposed diffuse ground-glass opacity, either infectious or due to pulmonary edema from CHF. 3. Moderate-sized hiatal hernia. 4. A jejunostomy tube is seen which loops backwards with the tip in the 2nd portion of the duodenum. Dictated by: Bruno Tineo M.D. on 12/07/2021 at 16:48 Approved by: Bruno Tineo M.D. on 12/07/2021 at 17:01
[2021-12-07] MEDS: POTASSIUM CHLORIDE IN WATER 10 MEQ/100 ML PIGGYBACK 100 MEQ IV ×5 (00:58→12:44)
[2021-12-07] MEDS: PIPERACILLIN/TAZO 3.375 GM in SODIUM CHLORIDE 0.9% 100 ML 25 ML IV ×3 (01:50→17:46)
[2021-12-07] MEDS: MAGNESIUM SULFATE 2 GM/50 ML PIGGYBACK IV (02:14)
--- NOTE | 2021-12-07 04:34 | PC.NURSE ---
Addendum entered by Ronit Landrum R.N. 12/07/21 07:25: Reported critical K+ to Dr Narvaez, 40meq K+ riders ordered along with liquid K+ to be given via her peg tube. Also informed MD about persistent Bigeminal PVCs, tachypnea, nausea and 150ml coffe ground emesis, mentation, and UOP, orders received for CXR, ABG, Echo, and IV Protonix. Original Note: Admit/Shift Note-Patient brought to ICU room 228 at 2100, she is lethargic but able oriented to place and can state her birthday, SO at bedside through intake assessment, then left. Narcan gtt started at 0.25mg/hr as ordered, Zithromycin, Zosyn, Vancomycin, 40meq K+ riders, and 2gm Mg+ sulfate also given. In/out bigeminal PVCs, on 2L O2 with Endtidal CO2, BP 160-170s/90, see vital trends. Galvin catheter placed, 40mg IV Lasix given, diuresed 2400ml pale urine. Midline IV placed by IV Nurse [employer], tolerated well, has not c/0 pain, but is restless at times.
[2021-12-07 05:21] LABS: Add Manual Diff / Slide Review NO; Basophils Absolute Auto 0 /uL (0-100); Basophils Percent Auto 0.1 % (0-2); Eosinophils Absolute Auto 0 /uL (0-450); Hematocrit 45.8 % (36-46); Hemoglobin 15.1 g/dL (12.0-16.0); Lymphocytes Absolute Auto 800 /uL (1100-4500); Lymphocytes Percent Auto 3.3 % (25-40); Mean Corpuscular HGB Conc 32.9 % (30-36); Mean Corpuscular Hemoglobin 26.8 PG (26-34); Mean Corpuscular Volume 81.5 fL (80-100); Monocytes Absolute Auto 400 /uL (0-900); Monocytes Percent Auto 1.6 % (3-14); Neutrophils Absolute Auto 22000 /uL (1500-7000); Platelet Count 256 X10^3/uL (150-400); Red Blood Cell Count 5.62 X10^6/uL (4.0-5.2); Red Cell Distribution Width 14.4 % (11.6-14.8); White Blood Cell Count 23.2 X10^3/uL (4.5-11.0)
[2021-12-07 05:29] LABS: BUN Creatinine Ratio 21.6 (6-22); Blood Urea Nitrogen 8 mg/dL (7-17); Calcium 9.3 mg/dL (8.4-10.2); Carbon Dioxide 29 mmol/L (22-32); Chloride 92 mmol/L (98-107); Estimated Glomerular Filt Rate > 60 mL/min (>60); Glucose 179 mg/dL (80-110); HEMOLYSIS 17 (0-50); Potassium 2.9 mmol/L (3.4-5.1); Sodium 131 mmol/L (137-145)
--- NOTE | 2021-12-07 06:03 | DI.RAD.S_ITS ---
PROCEDURE: XR CHEST 1V INDICATIONS: shortness of breath TECHNIQUE: One view of the chest was acquired. COMPARISON: [facility], CR, XR CHEST 1V, 12/06/2021, 16:50. FINDINGS: Surgical changes and devices: None. Lungs and pleura: Bilateral perihilar opacities have decreased in size compared to December 06, 2021. No pleural effusions or pneumothorax. Mediastinum: Mediastinal contours appear normal. Heart size is normal. Bones and chest wall: No suspicious bony lesions. Overlying soft tissues appear unremarkable. IMPRESSION: Resolving pulmonary edema. Dictated by: Lindsay Montilla MD, PhD on 12/07/2021 at 7:58 Approved by: Lindsay Montilla MD, PhD on 12/07/2021 at 7:59
--- NOTE | 2021-12-07 06:05 | DI.ECHO.S_ITS ---
[facility] +---------+ : : [address] : : : : [place] : : : : [id number] : : : : Phone: [phone] Echocardiogram Report + + :Name: ANGÉLICA JAY Study Date: 12/07/2021 Height: 59 in : :[facility] ReadingLocation: Weight: 164 lb : : Gender: Female BSA: 1.7 m2 : :: 1955 Age: 66 yrs BP: 200/89 mmHg: :Reason For Study: SOB : :Ordering Physician: : :KANU DELAROSA Performed By: Gucci Conway : :Referring: KANU DELAROSA : + + Interpretation Summary The left ventricle is normal in size and wall thickness. The left ventricle is hyperdynamic. The ejection fraction is estimated to be 70-75%. LVEF has increased. There is possible minimal intracacity obstruction. There are no focal wall motion abnormalities. Diastolic function could not be accurately assessed due to unobtainable data. The right ventricle is mildly dilated. The right ventricular systolic function is normal. Pulmonary artery pressures cannot be estimated because of the lack of a measurable TR jet velocity. The left atrium is mildly dilated. Right atrial size is normal. There is no significant valvular heart disease. The aortic root is normal size. Procedure: A two-dimensional transthoracic echocardiogram with color flow and Doppler was performed. The study quality was technically adequate. Comparison is made with the echocardiogram of 06/10/2021. Left Ventricle: The left ventricle is normal in size and wall thickness. The left ventricle is hyperdynamic. The ejection fraction is estimated to be 70- 75%. There are no focal wall motion abnormalities. Diastolic function could not be accurately assessed due to unobtainable data. Right Ventricle: The right ventricle is mildly dilated. The right ventricular systolic function is normal. Atria: The left atrium is mildly dilated. Right atrial size is normal. The interatrial septum grossly appears intact with no obvious evidence for an atrial septal defect. Mitral Valve: The mitral valve is normal in structure and function. There is no mitral regurgitation noted. Aortic Valve: The aortic valve is normal in structure and function. No aortic regurgitation is present. Tricuspid Valve: The tricuspid valve is normal in structure and function. There is trace tricuspid regurgitation. Pulmonary artery pressures cannot be estimated because of the lack of a measurable TR jet velocity. Pulmonic Valve: The pulmonic valve is normal in structure and function. There is no pulmonic valvular regurgitation. There is no significant valvular heart disease. Great Vessels: The aortic root is normal size. The dimensions of the ascending aorta are normal. The inferior vena cava was not visualized. Pericardium/ Pleura There is no pericardial effusion. There is no pleural effusion. MMode/2D Measurements & Calculations LVIDd: 4.3 cm LVOT diam: 1.9 cm LVIDs: 2.4 cm Ao root diam: 2.9 cm FS: 43.4 % asc Aorta Diam: 3.4 cm IVSd: 1.0 cm LVPWd: 0.81 cm LV danielson. diameter/BSA (cm/m^2): 2.5 LV sys. diameter/BSA (cm/m^2): 1.4 LA A2 area: 21.4 cm2 RA long axis: 6.0 cm LA A4 area: 19.4 cm2 RA area: 18.1 cm2 LA length (vol): 5.8 cm RA vol: 46.0 ml LA vol: 61.3 ml RA : 27.2 ml/m2 LA vol index: 36.2 ml/m2 TAPSE: 2.7 cm Doppler Measurements & Calculations Ao V2 max: 204.4 cm/sec LVOT Max Iraj: 164.8 cm/sec Ao V2 mean: 131.3 cm/sec LV V1 max P.9 mmHg Ao max P.7 mmHg LV V1 VTI: 24.0 cm Ao mean P.8 mmHg EDILIA(I,D): 2.4 cm2 Ao V2 VTI: 28.5 cm EDILIA(V,D): 2.3 cm2 sev ratio: 0.84 EDILIA indexed to BSA (cm^2/m^2): 1.4 MV E max iraj: 98.7 cm/sec SV(LVOT): 69.7 ml MV A max iraj: 89.5 cm/sec MV E/A: 1.1 MV dec time: 0.32 sec Reading Physician:02:10 PM
[2021-12-07 06:12] LABS: Magnesium 2.6 mg/dL (1.6-2.3)
[2021-12-07] MEDS: HEPARIN 5,000 UNIT/ML VIAL 5000 UNIT SUBCUT ×3 (06:44→21:51)
[2021-12-07] MEDS: NALOXONE 2 MG in SODIUM CHLORIDE 0.9% 500 ML 62.75 ML IV (06:54)
[2021-12-07 07:07] LABS: HCO3 ABG 28 mmol/L (22-26); PCO2 ABG 32.4 mmHg (35-45); PO2 ABG 76 mmHg (80-100); pH ABG 7.55 (7.35-7.45)
[2021-12-07 07:08] LABS: Fractionated Inspired Oxygen 36; Oxygen Saturation ABG 97 % (95-100); TCO2 ABG 29 mmol/L (21-31)
[2021-12-07] MEDS: VANCOMYCIN 1,000 MG/200 ML PIGGYBACK 200 MG IV ×2 (07:50→16:38)
[2021-12-07] MEDS: POTASSIUM CHLORIDE 20 MEQ/15 ML UDC 40 MEQ PO (07:51)
--- NOTE | 2021-12-07 08:20 | P.TELICUPN_ITS ---
Subjective Subjective :: This patient was seen via real time interactive two-way audiovisual telecommunication. Interval history: Narrative: 66 y.o. female w/ PMHx of J-tube after Mendez fundoplication, opioid dependence/chronic pain, HTN and chronic hypoxic respiratory failure who presented to ED with nausea and unresponsiveness. She was given naloxone 1.2 mg x 1 and 0.4 mg x 2 with immediate but short-lived improvement in mentation.? NCHCT was (-). WBC was 21,800 and pCXR showed bilateral opacities concerning for multifocal pneumonia +/- edema. ? She was cultured and started on vancomycin/Zosyn/azithromycin.? Admitted to ICU on a Narcan infusion.? Serum EtOH, salicylate and acetaminophen levels were (-). Home medication list is notable for carisoprodol 350 mg q4H PRN, transdermal fentanyl 100 mcg/hr, diazepam 5 mg q8H PRN, citalopram 20 mg q24H, promethazine 25-50 mg q6H PRN, morphine 30 mg q6H PRN, and Benadryl 25- 50 mg q4-6H PRN. Interval History/Subjective: 12/07: Seen and evaluated at bedside Narcan drip infusing Patient lethargic though responding appropriately to most questions, complains of chronic achy abdominal pain and weakness. Denies dyspnea or cough. Later in the morning, patient increasingly lethargic. Remained tachypneic to 40s. RN reports coffee ground emesis O/N. states she had bile colored vomitus at home, felt she may have aspirated Did not respond to bolus dose of narcan. Intubated for airway protection by anesthesia after discussion with Dr. Wilcox Current Medications Current Medications Medications: Home Medications CHOLECALCIFEROL (VITAMIN D) 2,000 iu TUBE BID #0 09/04/12 [History Confirmed 12/06/21] albuterol sulfate 90 mcg/actuation aerosol inhaler (Proventil HFA) 2 puff INH Q4HP PRN #8.5 gm 09/04/12 [History Confirmed 12/06/21] carisoprodol 350 mg tablet 1 tab TUBE Q4H PRN #0 09/04/12 [History Confirmed 12/06/21] diazepam 5 mg tablet 10 mg PO Q8H PRN #0 09/04/12 [History Confirmed 12/06/21] fentanyl 100 mcg/hr transdermal patch 200 mcg TOPICAL Q72H #0 09/04/12 [History Confirmed 12/06/21] omeprazole 40 mg-sodium bicarbonate 1,680 mg oral packet (Zegerid) 2 pkt FEEDING TUBE BID #0 09/04/12 [History Confirmed 12/06/21] polyethylene glycol 3350 17 gram/dose oral powder 17 gm FEEDING TUBE PRN PRN #0 09/04/12 [History Confirmed 12/06/21] DIPHENOXYLATE/ATROPINE SULFATE (DIPHENOXYLATE/ATROPINE) 1 - 2 tab FEEDING TUBE QIDP PRN #0 09/07/12 [History Confirmed 12/06/21] albuterol sulfate 3 ml INH PRN PRN #0 09/07/12 [History Confirmed 12/06/21] citalopram 10 mg/5 mL oral solution 20 mg TUBE QDAY #0 09/07/12 [History Confirmed 12/06/21] ondansetron HCl 4 mg/5 mL oral solution (Zofran) 1 - 2 tsp TUBE Q6HP PRN #0 09/07/12 [History Confirmed 12/06/21] promethazine 25 mg tablet 1 - 2 tab TUBE Q6HP PRN #0 09/07/12 [History Confirmed 12/06/21] Ketoconazole 1 glenis TOPICAL PRN PRN #0 12/23/16 [History Confirmed 12/06/21] amlodipine 10 mg tablet 10 mg FEEDING TUBE QDAY #0 12/23/16 [History Confirmed 12/06/21] cyclosporine 0.05 % eye drops in a dropperette (Restasis) 1 drp/day EYE-BOTH BID #0 12/23/16 [History Confirmed 12/06/21] desonide 0.05 % lotion 1 glenis TOPICAL PRN PRN #0 12/23/16 [History Confirmed 12/06/21] potassium chloride 20 mEq/15 mL oral liquid 5.625 ml FEEDING TUBE DAILY #0 12/23/16 [History Confirmed 12/06/21] diphenhydramine HCl 25 mg capsule (Benadryl) 1 - 2 tab FEEDING TUBE Q4-6H PRN 05/24/18 [History Confirmed 12/06/21] mupirocin 2 % topical ointment 1 applic TOPICAL TID 05/24/18 [History Confirmed 12/06/21] nut.tx.impaired digest fxn 0.068 gram-1.5 kcal/mL oral liquid (Peptamen 1.5) 750 ml FEEDING TUBE QPM 05/24/18 [History Confirmed 12/06/21] cyanocobalamin (vitamin B-12) 1,000 mcg tablet 1,000 mcg PO BID 06/09/21 [History Confirmed 12/06/21] morphine 10 mg/5 mL oral solution 30 mg FEEDING TUBE Q6H PRN 06/09/21 [History Confirmed 12/06/21] naloxone 4 mg/actuation nasal spray (Narcan) 4 mg INTRANASAL Q3M PRN 06/09/21 [History Confirmed 12/06/21] sennosides 8.6 mg tablet (senna) 8.6 mg PO BEDTIME PRN 06/09/21 [History Confirmed 12/06/21] triamcinolone acetonide 0.5 % topical cream 1 applic TOPICAL BID PRN 06/09/21 [History Confirmed 12/06/21] fentanyl 50 mcg/hr transdermal patch 50 mcg TOPICAL Q72H 12/06/21 [History Confirmed 12/06/21] hydromorphone 8 mg tablet 8 mg FEEDING TUBE TID PRN MDD 24 12/06/21 [History Confirmed 12/06/21] Visit Medications (administered) Generic Name Dose Route Start Last Admin Trade Name Freq PRN Reason Stop Dose Admin Heparin Sodium (Porcine) 5,000 unit 12/07/21 06:00 12/07/21 06:44 Heparin 5,000 Unit/Ml Vial SUBCUT 5,000 unit Q8HR SHIMON Administration Azithromycin 500 mg/ Dextrose 250 mls @ 250 mls/hr 12/06/21 22:00 12/06/21 23:46 IV Infused Q24H SHIMON Infusion Piperacillin Sod/Tazobactam 100 mls @ 25 mls/hr 12/07/21 01:00 12/07/21 06:39 Sod 3.375 gm/ Sodium Chloride IV Infused Q8H SHIMON Infusion Naloxone HCl 2 mg/ Sodium 502 mls @ 62.75 mls/hr 12/06/21 21:19 12/07/21 06:54 Chloride IV 0.25 mg/hr TITRATE SHIMON 62.75 mls/hr Administration Protocol 0.25 MG/HR POTASSIUM CHLORIDE IN WATER 10 meq in 100 mls @ 100 mls/hr 12/07/21 06:15 12/07/21 07:51 Potassium Cl 10 Meq/100 Ml Hemalatha IV 12/07/21 10:14 100 mls/hr Q1H SHIMON Administration Vancomycin HCl 1,000 mg in 200 mls @ 200 mls/hr 12/07/21 08:00 12/07/21 07:50 Vancomycin IV 200 mls/hr Q8H SHIMON Administration Objective Labs Result Diagrams: 12/07/21 05:00 12/07/21 05:00 Labs: Laboratory Results - last 24 hr 12/06/21 12/06/21 12/06/21 16:47 16:47 16:47 WBC 21.8 H RBC 4.91 Hgb 13.4 Hct 39.5 MCV 80.3 MCH 27.3 MCHC 34.0 RDW 14.4 Plt Count 216 Neut % (Auto) 94.9 H Lymph % (Auto) 3.0 L [place] % (Auto) 2.1 L Eos % (Auto) 0.0 L Baso % (Auto) 0.0 Neut # (Auto) 08527 H Lymph # (Auto) 600 L [place] # (Auto) 500 Eos # (Auto) 0 Baso # (Auto) 0 PT INR APTT ABG pH ABG pCO2 ABG pO2 ABG HCO3 ABG Total CO2 ABG O2 Saturation ABG Base Excess FiO2 Sodium 127 L Potassium 3.3 L Chloride 89 L Carbon Dioxide 31 BUN 6 L Creatinine 0.41 L Estimated GFR > 60 BUN/Creatinine Ratio 14.6 Glucose 165 H Lactate 1.8 Calcium 9.4 Phosphorus Magnesium Total Bilirubin 0.9 AST 30 ALT 15 Alkaline Phosphatase 71 Ammonia Total Creatine Kinase 35 CK-MB (CK-2) TNP CK-MB (CK-2) Rel Index TNP Troponin I < 0.012 NT-Pro-B Natriuret Pep Total Protein 8.0 Albumin 4.3 Globulin 3.7 Albumin/Globulin Ratio 1.2 Procalcitonin 0.20 TSH Prolactin 9.2 Urine Color Urine Appearance Urine pH Ur Specific [place] Urine Protein Urine Glucose (UA) Urine Ketones Urine Occult Blood Urine Nitrate Urine Bilirubin Urine Urobilinogen Ur Leukocyte Esterase Urine RBC Urine WBC Ur Squamous Epith Cells Urine Bacteria Ur Culture Indicated? Nasal Screen MRSA (PCR) Salicylates < 1.0 U Opiates 300ng/mL cut Ur Oxycodone Screen Urine Methadone Screen Acetaminophen < 10 Ur Barbiturates Screen U Tricyclic Antidepress Ur Phencyclidine Scrn Ur Amphetamines Screen U Methamphetamines Scrn Ur MDMA Scrn (Ecstasy) U Benzodiazepines Scrn Urine Cocaine Screen U Marijuana (THC) Screen Ethyl Alcohol < 10 SARS-CoV-2 (PCR) 12/06/21 12/06/21 12/06/21 16:47 16:47 16:47 WBC RBC Hgb Hct MCV MCH MCHC RDW Plt Count Neut % (Auto) Lymph % (Auto) [place] % (Auto) Eos % (Auto) Baso % (Auto) Neut # (Auto) Lymph # (Auto) [place] # (Auto) Eos # (Auto) Baso # (Auto) PT 11.9 INR 1.1 APTT 31 ABG pH ABG pCO2 ABG pO2 ABG HCO3 ABG Total CO2 ABG O2 Saturation ABG Base Excess FiO2 Sodium Potassium Chloride Carbon Dioxide BUN Creatinine Estimated GFR BUN/Creatinine Ratio Glucose Lactate Calcium Phosphorus Magnesium Total Bilirubin AST ALT Alkaline Phosphatase Ammonia < 9 L Total Creatine Kinase CK-MB (CK-2) CK-MB (CK-2) Rel Index Troponin I NT-Pro-B Natriuret Pep Total Protein Albumin Globulin Albumin/Globulin Ratio Procalcitonin TSH 0.460 L Prolactin Urine Color Urine Appearance Urine pH Ur Specific [place] Urine Protein Urine Glucose (UA) Urine Ketones Urine Occult Blood Urine Nitrate Urine Bilirubin Urine Urobilinogen Ur Leukocyte Esterase Urine RBC Urine WBC Ur Squamous Epith Cells Urine Bacteria Ur Culture Indicated? Nasal Screen MRSA (PCR) Salicylates U Opiates 300ng/mL cut Ur Oxycodone Screen Urine Methadone Screen Acetaminophen Ur Barbiturates Screen U Tricyclic Antidepress Ur Phencyclidine Scrn Ur Amphetamines Screen U Methamphetamines Scrn Ur MDMA Scrn (Ecstasy) U Benzodiazepines Scrn Urine Cocaine Screen U Marijuana (THC) Screen Ethyl Alcohol SARS-CoV-2 (PCR) 12/06/21 12/06/21 12/06/21 16:47 16:47 16:56 WBC RBC Hgb Hct MCV MCH MCHC RDW Plt Count Neut % (Auto) Lymph % (Auto) [place] % (Auto) Eos % (Auto) Baso % (Auto) Neut # (Auto) Lymph # (Auto) [place] # (Auto) Eos # (Auto) Baso # (Auto) PT INR APTT ABG pH ABG pCO2 ABG pO2 ABG HCO3 ABG Total CO2 ABG O2 Saturation ABG Base Excess FiO2 Sodium Potassium Chloride Carbon Dioxide BUN Creatinine Estimated GFR BUN/Creatinine Ratio Glucose Lactate Calcium Phosphorus 3.3 Magnesium 1.7 Total Bilirubin AST ALT Alkaline Phosphatase Ammonia Total Creatine Kinase CK-MB (CK-2) CK-MB (CK-2) Rel Index Troponin I NT-Pro-B Natriuret Pep 181 H Total Protein Albumin Globulin Albumin/Globulin Ratio Procalcitonin TSH Prolactin Urine Color Urine Appearance Urine pH Ur Specific [place] Urine Protein Urine Glucose (UA) Urine Ketones Urine Occult Blood Urine Nitrate Urine Bilirubin Urine Urobilinogen Ur Leukocyte Esterase Urine RBC Urine WBC Ur Squamous Epith Cells Urine Bacteria Ur Culture Indicated? Nasal Screen MRSA (PCR) Salicylates U Opiates 300ng/mL cut Ur Oxycodone Screen Urine Methadone Screen Acetaminophen Ur Barbiturates Screen U Tricyclic Antidepress Ur Phencyclidine Scrn Ur Amphetamines Screen U Methamphetamines Scrn Ur MDMA Scrn (Ecstasy) U Benzodiazepines Scrn Urine Cocaine Screen U Marijuana (THC) Screen Ethyl Alcohol SARS-CoV-2 (PCR) Negative 12/06/21 12/06/21 12/06/21 17:05 17:28 17:51 WBC RBC Hgb Hct MCV MCH MCHC RDW Plt Count Neut % (Auto) Lymph % (Auto) [place] % (Auto) Eos % (Auto) Baso % (Auto) Neut # (Auto) Lymph # (Auto) [place] # (Auto) Eos # (Auto) Baso # (Auto) PT INR APTT ABG pH 7.52 H ABG pCO2 37.0 ABG pO2 74 L ABG HCO3 30 H ABG Total CO2 32 H ABG O2 Saturation 96 ABG Base Excess 8.0 H FiO2 40 Sodium Potassium Chloride Carbon Dioxide BUN Creatinine Estimated GFR BUN/Creatinine Ratio Glucose Lactate Calcium Phosphorus Magnesium Total Bilirubin AST ALT Alkaline Phosphatase Ammonia Total Creatine Kinase CK-MB (CK-2) CK-MB (CK-2) Rel Index Troponin I NT-Pro-B Natriuret Pep Total Protein Albumin Globulin Albumin/Globulin Ratio Procalcitonin TSH Prolactin Urine Color Yellow Urine Appearance Clear Urine pH 7.5 Ur Specific [place] 1.010 Urine Protein Negative Urine Glucose (UA) Negative Urine Ketones Trace H Urine Occult Blood Trace-lysed Urine Nitrate Negative Urine Bilirubin Negative Urine Urobilinogen 0.2 Ur Leukocyte Esterase Negative Urine RBC 0-1/hpf Urine WBC 0-1/hpf Ur Squamous Epith Cells 0-1 /hpf Urine Bacteria None seen Ur Culture Indicated? Cult not indicated Nasal Screen MRSA (PCR) Salicylates U Opiates 300ng/mL cut Positive H Ur Oxycodone Screen Negative Urine Methadone Screen Negative Acetaminophen Ur Barbiturates Screen Negative U Tricyclic Antidepress Negative Ur Phencyclidine Scrn Negative Ur Amphetamines Screen Negative U Methamphetamines Scrn Negative Ur MDMA Scrn (Ecstasy) Negative U Benzodiazepines Scrn Positive H Urine Cocaine Screen Negative U Marijuana (THC) Screen Negative Ethyl Alcohol SARS-CoV-2 (PCR) 12/07/21 12/07/21 12/07/21 02:30 05:00 05:00 WBC 23.2 H RBC 5.62 H Hgb 15.1 Hct 45.8 MCV 81.5 MCH 26.8 MCHC 32.9 RDW 14.4 Plt Count 256 Neut % (Auto) 95.0 H Lymph % (Auto) 3.3 L [place] % (Auto) 1.6 L Eos % (Auto) 0.0 L Baso % (Auto) 0.1 Neut # (Auto) 29012 H Lymph # (Auto) 800 L [place] # (Auto) 400 Eos # (Auto) 0 Baso # (Auto) 0 PT INR APTT ABG pH ABG pCO2 ABG pO2 ABG HCO3 ABG Total CO2 ABG O2 Saturation ABG Base Excess FiO2 Sodium 131 L Potassium 2.9 L Chloride 92 L Carbon Dioxide 29 BUN 8 Creatinine 0.37 L Estimated GFR > 60 BUN/Creatinine Ratio 21.6 Glucose 179 H Lactate Calcium 9.3 Phosphorus Magnesium Total Bilirubin AST ALT Alkaline Phosphatase Ammonia Total Creatine Kinase CK-MB (CK-2) CK-MB (CK-2) Rel Index Troponin I NT-Pro-B Natriuret Pep Total Protein Albumin Globulin Albumin/Globulin Ratio Procalcitonin TSH Prolactin Urine Color Urine Appearance Urine pH Ur Specific [place] Urine Protein Urine Glucose (UA) Urine Ketones Urine Occult Blood Urine Nitrate Urine Bilirubin Urine Urobilinogen Ur Leukocyte Esterase Urine RBC Urine WBC Ur Squamous Epith Cells Urine Bacteria Ur Culture Indicated? Nasal Screen MRSA (PCR) Negative for mrsa Salicylates U Opiates 300ng/mL cut Ur Oxycodone Screen Urine Methadone Screen Acetaminophen Ur Barbiturates Screen U Tricyclic Antidepress Ur Phencyclidine Scrn Ur Amphetamines Screen U Methamphetamines Scrn Ur MDMA Scrn (Ecstasy) U Benzodiazepines Scrn Urine Cocaine Screen U Marijuana (THC) Screen Ethyl Alcohol SARS-CoV-2 (PCR) 12/07/21 12/07/21 05:00 06:35 WBC RBC Hgb Hct MCV MCH MCHC RDW Plt Count Neut % (Auto) Lymph % (Auto) [place] % (Auto) Eos % (Auto) Baso % (Auto) Neut # (Auto) Lymph # (Auto) [place] # (Auto) Eos # (Auto) Baso # (Auto) PT INR APTT ABG pH 7.55 H ABG pCO2 32.4 L ABG pO2 76 L ABG HCO3 28 H ABG Total CO2 29 ABG O2 Saturation 97 ABG Base Excess 6.0 H FiO2 36 Sodium Potassium Chloride Carbon Dioxide BUN Creatinine Estimated GFR BUN/Creatinine Ratio Glucose Lactate Calcium Phosphorus Magnesium 2.6 H Total Bilirubin AST ALT Alkaline Phosphatase Ammonia Total Creatine Kinase CK-MB (CK-2) CK-MB (CK-2) Rel Index Troponin I NT-Pro-B Natriuret Pep Total Protein Albumin Globulin Albumin/Globulin Ratio Procalcitonin TSH Prolactin Urine Color Urine Appearance Urine pH Ur Specific [place] Urine Protein Urine Glucose (UA) Urine Ketones Urine Occult Blood Urine Nitrate Urine Bilirubin Urine Urobilinogen Ur Leukocyte Esterase Urine RBC Urine WBC Ur Squamous Epith Cells Urine Bacteria Ur Culture Indicated? Nasal Screen MRSA (PCR) Salicylates U Opiates 300ng/mL cut Ur Oxycodone Screen Urine Methadone Screen Acetaminophen Ur Barbiturates Screen U Tricyclic Antidepress Ur Phencyclidine Scrn Ur Amphetamines Screen U Methamphetamines Scrn Ur MDMA Scrn (Ecstasy) U Benzodiazepines Scrn Urine Cocaine Screen U Marijuana (THC) Screen Ethyl Alcohol SARS-CoV-2 (PCR) Exam Vital Signs (past 8 hours): - 12/07/21 00:30 12/07/21 01:00 12/07/21 01:30 Pulse Rate 81 80 79 Respiratory Rate 36 H 27 H 36 H Blood Pressure 152/78 H Pulse Oximetry 97 97 98 12/07/21 02:00 12/07/21 02:30 12/07/21 03:00 Pulse Rate 80 85 87 Respiratory Rate 42 H 40 H 41 H Blood Pressure 164/79 H Pulse Oximetry 96 96 97 12/07/21 03:01 12/07/21 03:30 12/07/21 04:00 Pulse Rate 87 84 85 Respiratory Rate 41 H 25 H 42 H Blood Pressure 178/77 H 161/82 H Pulse Oximetry 96 96 97 12/07/21 04:30 12/07/21 05:00 12/07/21 05:01 Pulse Rate 93 H 90 89 Respiratory Rate 36 H 39 H 44 H Blood Pressure 198/87 H Pulse Oximetry 97 95 96 12/07/21 05:30 12/07/21 06:00 12/07/21 06:02 Pulse Rate 90 89 88 Respiratory Rate 43 H 40 H 39 H Blood Pressure 175/123 H 185/87 H Pulse Oximetry 96 97 97 12/07/21 07:00 12/07/21 07:01 12/07/21 08:00 Pulse Rate 87 86 Respiratory Rate 43 H 39 H Blood Pressure 200/89 H 169/77 H Pulse Oximetry 97 97 Oxygen Delivery Method [place] Nasal Cannula Oxygen Flow Rate 2 Narrative Exam Narrative: Remained tachypneic throughout morning with worsening lethargy, became obtunded. Now intubated and sedated Quality TeleICU VTE Deep Vein Thrombosis/Pulmonary Embolism Present on Admission: No Assessment & Plan Assessment & Plan narrative: Acute on chronic hypoxic respiratory failure Sepsis, likely 2/2 aspiration PNA Leukocytosis * Presumed aspiration pneumonitis vs pulmonary edema * B/L opacities on CXR somewhat improved today * 3L UO O/N, hypokalemic, will hold on further diuresis for now * Continue with empiric abx, follow cultures and deescalate accordingly * Intubated this morning, lung protective strategy, vent bundle, f/u CXR and ABG * Propofol for sedation, goal RASS -2 * Hold antihypertensives * Agree with plan for CT chest/abd Shock state, septic vs sedative induced * DC precedex * IVF resus for goal 30 mL/kg * Holding antihypertensive * Follow cultures * Levophed prn goal MAP >65 * Abx, cultures as above Toxic metabolic encephalopathy * Sepsis vs opiate overdose * Can DC narcan * Management of sepsis as above Coffee ground emesis * Acute GIB vs gastritis * HGB stable this am * Continue to monitor * F/u H&H this afternoon (1400) * PPi * Continue DVT PPx for now Electrolyte disturbance * Replete K * F/U chem, Mg, Phos Time Spent With Patient Critical Care time: I spent a total of [65] minutes of critical care time on this patient's care today; this time is exclusive of procedural time.
[2021-12-07] MEDS: PANTOPRAZOLE 40 MG VIAL IV ×2 (09:39→21:51)
[2021-12-07] MEDS: NALOXONE 0.4 MG/ML VIAL IV (09:55)
[2021-12-07] MEDS: HYDRALAZINE 20 MG/ML VIAL 10 MG IV (10:19)
[2021-12-07] MEDS: CITALOPRAM 10 MG TABLET 20 MG TUBE (10:21)
--- NOTE | 2021-12-07 10:46 | DI.CT.S_ITS ---
PROCEDURE: CT ABDOMEN PELVIS W CON INDICATIONS: Concern for pneumonitis, possible PE, intra-abd infection TECHNIQUE: After the administration of oral and IV contrast, axial sections were acquired from the lung bases to the pubic symphysis. Coronal and sagittal reformats were performed. For radiation dose reduction, the following was used: automated exposure control, adjustment of mA and/or kV according to patient size. COMPARISON: [facility], CT, CT ANGIO CHEST PE PROTOCOL, 06/11/2021, 10:33. [facility], CT, NECK/CHEST/ABD/PEL W/CONT (P), 11/14/2014, 14:44. [facility], CR, XR CHEST 1V, 12/07/2021, 11:26. [facility], CT, CT ANGIO CHEST PE PROTOCOL, 12/07/2021, 16:00. FINDINGS: Image quality: Excellent. Lung bases: Bilateral airspace opacities in lower lobes consistent with pneumonia. There is a moderate-sized hiatal hernia. Heart: No significant findings. ABDOMEN: Liver: Normal size. There is intrahepatic biliary dilation. Gallbladder: Surgically removed. Biliary ducts: Biliary ducts are dilated. Common bile duct measures up to 12 mm. No common bile duct stones are identified. Pancreas: Fatty replacement of pancreas. Spleen: Unremarkable. Adrenal Glands: Unremarkable. Kidneys and Ureters: Normal in size and symmetric in enhancement. There is a 5 mm stone in the inferior pole of the left kidney. No hydronephrosis. Stomach and Bowel: Percutaneous jejunostomy with the tip in the proximal duodenum. There is mild thickening of duodenum. Rectum is thickened. Stomach, small bowel loops, and colon are normal in caliber. There is a moderate amount of stool in colon. Peritoneum: There is a small amount of free fluid. No free air. Ventral Wall: No hernia. Abdominal Nodes: No retroperitoneal or mesenteric adenopathy by size criteria. Vessels: Aorta and inferior vena cava are normal in size. PELVIS: Pelvic Organs: Unremarkable. Bladder: Bladder is contracted with a Galvin catheter. There is appearance of bladder wall thickening suggesting cystitis. Pelvic Nodes: No enlarged lymph nodes. Miscellaneous: No inguinal hernias are seen. Bones: Severe compression fracture of L1 and mild compression fracture of T10, T11 and L3, likely chronic. Old left femoral neck fracture with internal fixation. IMPRESSION: 1. Bilateral lower lobe pneumonia. 2. Thickening of duodenum consistent with duodenitis. There is a percutaneous jejunostomy with the tip within the proximal duodenum. 3. Thickening of rectum consistent with proctitis. 4. Thickening of urinary bladder consistent with cystitis. 5. There is a small amount of free fluid in the peritoneal cavity. No organized fluid collections to suggest abscess. 6. A 5 mm nonobstructive stone in left kidney. 7. Cholecystectomy. There is intrahepatic and extrahepatic biliary dilation. Please correlate with serum bilirubin for biliary obstruction. If clinically indicated, MRCP may be helpful. 8. Multiple chronic compression fractures, severe at L1, mild at T10, T11 and L3. Dictated by: Coleen Rivera M.D. on 12/07/2021 at 17:23 Approved by: Coleen Rivera M.D. on 12/07/2021 at 17:35
[2021-12-07] MEDS: propofoL 1,000 MG/100 ML VIAL 2.235 MG IV (11:03)
[2021-12-07] MEDS: dexmedeTOMIDine in 0.9 % NaCL 400 MCG/100 ML PLAST..BAG IV (11:04)
--- NOTE | 2021-12-07 11:23 | DI.RAD.S_ITS ---
PROCEDURE: XR CHEST 1V INDICATIONS: Confirm correct placement of ETT TECHNIQUE: One view of the chest was acquired. COMPARISON: [facility], CR, XR CHEST 1V, 12/07/2021, 6:19. FINDINGS: Endotracheal tube tip 2.5 cm above the rehana. Heart size is enlarged. Moderate vascular congestion noted. Pleural spaces are clear. Osseous structures unremarkable. IMPRESSION: Endotracheal tube tip 2.5 cm above the rehana. Cardiomegaly and moderate vascular congestion Approved by: Ajay Mondragon M.D. on 12/07/2021 at 11:18
--- NOTE | 2021-12-07 12:02 | PM.PN.1 ---
Subjective Subjective Interval history: The patient is somnolent and tachypneic and unable to meaningfully participate in history acquisition. Her caregiver at bedside, Mr. Dominguez, reiterated the patient's HPI. Exam Vital Signs (past 8 hours): - 12/07/21 04:30 12/07/21 05:00 12/07/21 05:01 Temperature Pulse Rate 93 H 90 89 Respiratory Rate 36 H 39 H 44 H Blood Pressure 198/87 H Pulse Oximetry 97 95 96 12/07/21 05:30 12/07/21 06:00 12/07/21 06:02 Temperature Pulse Rate 90 89 88 Respiratory Rate 43 H 40 H 39 H Blood Pressure 175/123 H 185/87 H Pulse Oximetry 96 97 97 12/07/21 07:00 12/07/21 07:01 12/07/21 08:00 Temperature Pulse Rate 87 86 Respiratory Rate 43 H 39 H Blood Pressure 200/89 H 169/77 H Pulse Oximetry 97 97 12/07/21 09:01 12/07/21 09:15 12/07/21 09:16 Temperature 98.8 F Pulse Rate 83 82 Respiratory Rate 37 H 41 H Blood Pressure 197/88 H 173/87 H Pulse Oximetry 97 97 12/07/21 09:48 12/07/21 10:27 12/07/21 11:00 Temperature 99.8 F H Pulse Rate 80 Respiratory Rate 16 Blood Pressure 151/82 H Pulse Oximetry 96 98 Fraction of Inspired Oxygen 28 Oxygen Delivery Method Mechanical Ventilation Oxygen Flow Rate 2 Const Other: Patient laying in bed, somnolent and tachypneic, and appears acutely ill Eyes Other: No scleral icterus appreciated, pupils equal round and reactive to light Neck Other: No carotid bruits appreciated Resp Other: Scattered rhonchi appreciated over anterior lung sol Cardio Other: RRR, with S1 and S2 heart sounds normal, and no extra heart sounds or murmurs appreciated GI Other: Soft, non-distended, non-tender, bowel sounds present, J-tube securely in place, clean, dry and intact, with no evidence of surrounding cellulitis Skin Other: No grossly abnormal skin lesions noted Extrem Other: No peripheral edema noted, palpable dorsalis pedis pulses bilaterally Objective Labs Result Diagrams: 12/07/21 05:00 12/07/21 05:00 Labs: Laboratory Results - last 24 hr 0412/06/21 12/06/21 16:47 16:47 16:47 WBC 21.8 H RBC 4.91 Hgb 13.4 Hct 39.5 MCV 80.3 MCH 27.3 MCHC 34.0 RDW 14.4 Plt Count 216 Neut % (Auto) 94.9 H Lymph % (Auto) 3.0 L [place] % (Auto) 2.1 L Eos % (Auto) 0.0 L Baso % (Auto) 0.0 Neut # (Auto) 80839 H Lymph # (Auto) 600 L [place] # (Auto) 500 Eos # (Auto) 0 Baso # (Auto) 0 PT INR APTT ABG pH ABG pCO2 ABG pO2 ABG HCO3 ABG Total CO2 ABG O2 Saturation ABG Base Excess FiO2 Sodium 127 L Potassium 3.3 L Chloride 89 L Carbon Dioxide 31 BUN 6 L Creatinine 0.41 L Estimated GFR > 60 BUN/Creatinine Ratio 14.6 Glucose 165 H Lactate 1.8 Calcium 9.4 Phosphorus Magnesium Total Bilirubin 0.9 AST 30 ALT 15 Alkaline Phosphatase 71 Ammonia Total Creatine Kinase 35 CK-MB (CK-2) TNP CK-MB (CK-2) Rel Index TNP Troponin I < 0.012 NT-Pro-B Natriuret Pep Total Protein 8.0 Albumin 4.3 Globulin 3.7 Albumin/Globulin Ratio 1.2 Procalcitonin 0.20 TSH Prolactin 9.2 Urine Color Urine Appearance Urine pH Ur Specific [place] Urine Protein Urine Glucose (UA) Urine Ketones Urine Occult Blood Urine Nitrate Urine Bilirubin Urine Urobilinogen Ur Leukocyte Esterase Urine RBC Urine WBC Ur Squamous Epith Cells Urine Bacteria Ur Culture Indicated? Nasal Screen MRSA (PCR) Salicylates < 1.0 U Opiates 300ng/mL cut Ur Oxycodone Screen Urine Methadone Screen Acetaminophen < 10 Ur Barbiturates Screen U Tricyclic Antidepress Ur Phencyclidine Scrn Ur Amphetamines Screen U Methamphetamines Scrn Ur MDMA Scrn (Ecstasy) U Benzodiazepines Scrn Urine Cocaine Screen U Marijuana (THC) Screen Ethyl Alcohol < 10 SARS-CoV-2 (PCR) 12/06/21 12/06/21 12/06/21 16:47 16:47 16:47 WBC RBC Hgb Hct MCV MCH MCHC RDW Plt Count Neut % (Auto) Lymph % (Auto) [place] % (Auto) Eos % (Auto) Baso % (Auto) Neut # (Auto) Lymph # (Auto) [place] # (Auto) Eos # (Auto) Baso # (Auto) PT 11.9 INR 1.1 APTT 31 ABG pH ABG pCO2 ABG pO2 ABG HCO3 ABG Total CO2 ABG O2 Saturation ABG Base Excess FiO2 Sodium Potassium Chloride Carbon Dioxide BUN Creatinine Estimated GFR BUN/Creatinine Ratio Glucose Lactate Calcium Phosphorus Magnesium Total Bilirubin AST ALT Alkaline Phosphatase Ammonia < 9 L Total Creatine Kinase CK-MB (CK-2) CK-MB (CK-2) Rel Index Troponin I NT-Pro-B Natriuret Pep Total Protein Albumin Globulin Albumin/Globulin Ratio Procalcitonin TSH 0.460 L Prolactin Urine Color Urine Appearance Urine pH Ur Specific [place] Urine Protein Urine Glucose (UA) Urine Ketones Urine Occult Blood Urine Nitrate Urine Bilirubin Urine Urobilinogen Ur Leukocyte Esterase Urine RBC Urine WBC Ur Squamous Epith Cells Urine Bacteria Ur Culture Indicated? Nasal Screen MRSA (PCR) Salicylates U Opiates 300ng/mL cut Ur Oxycodone Screen Urine Methadone Screen Acetaminophen Ur Barbiturates Screen U Tricyclic Antidepress Ur Phencyclidine Scrn Ur Amphetamines Screen U Methamphetamines Scrn Ur MDMA Scrn (Ecstasy) U Benzodiazepines Scrn Urine Cocaine Screen U Marijuana (THC) Screen Ethyl Alcohol SARS-CoV-2 (PCR) 12/06/21 12/06/21 12/06/21 16:47 16:47 16:56 WBC RBC Hgb Hct MCV MCH MCHC RDW Plt Count Neut % (Auto) Lymph % (Auto) [place] % (Auto) Eos % (Auto) Baso % (Auto) Neut # (Auto) Lymph # (Auto) [place] # (Auto) Eos # (Auto) Baso # (Auto) PT INR APTT ABG pH ABG pCO2 ABG pO2 ABG HCO3 ABG Total CO2 ABG O2 Saturation ABG Base Excess FiO2 Sodium Potassium Chloride Carbon Dioxide BUN Creatinine Estimated GFR BUN/Creatinine Ratio Glucose Lactate Calcium Phosphorus 3.3 Magnesium 1.7 Total Bilirubin AST ALT Alkaline Phosphatase Ammonia Total Creatine Kinase CK-MB (CK-2) CK-MB (CK-2) Rel Index Troponin I NT-Pro-B Natriuret Pep 181 H Total Protein Albumin Globulin Albumin/Globulin Ratio Procalcitonin TSH Prolactin Urine Color Urine Appearance Urine pH Ur Specific [place] Urine Protein Urine Glucose (UA) Urine Ketones Urine Occult Blood Urine Nitrate Urine Bilirubin Urine Urobilinogen Ur Leukocyte Esterase Urine RBC Urine WBC Ur Squamous Epith Cells Urine Bacteria Ur Culture Indicated? Nasal Screen MRSA (PCR) Salicylates U Opiates 300ng/mL cut Ur Oxycodone Screen Urine Methadone Screen Acetaminophen Ur Barbiturates Screen U Tricyclic Antidepress Ur Phencyclidine Scrn Ur Amphetamines Screen U Methamphetamines Scrn Ur MDMA Scrn (Ecstasy) U Benzodiazepines Scrn Urine Cocaine Screen U Marijuana (THC) Screen Ethyl Alcohol SARS-CoV-2 (PCR) Negative 12/06/21 12/06/21 12/06/21 17:05 17:28 17:51 WBC RBC Hgb Hct MCV MCH MCHC RDW Plt Count Neut % (Auto) Lymph % (Auto) [place] % (Auto) Eos % (Auto) Baso % (Auto) Neut # (Auto) Lymph # (Auto) [place] # (Auto) Eos # (Auto) Baso # (Auto) PT INR APTT ABG pH 7.52 H ABG pCO2 37.0 ABG pO2 74 L ABG HCO3 30 H ABG Total CO2 32 H ABG O2 Saturation 96 ABG Base Excess 8.0 H FiO2 40 Sodium Potassium Chloride Carbon Dioxide BUN Creatinine Estimated GFR BUN/Creatinine Ratio Glucose Lactate Calcium Phosphorus Magnesium Total Bilirubin AST ALT Alkaline Phosphatase Ammonia Total Creatine Kinase CK-MB (CK-2) CK-MB (CK-2) Rel Index Troponin I NT-Pro-B Natriuret Pep Total Protein Albumin Globulin Albumin/Globulin Ratio Procalcitonin TSH Prolactin Urine Color Yellow Urine Appearance Clear Urine pH 7.5 Ur Specific [place] 1.010 Urine Protein Negative Urine Glucose (UA) Negative Urine Ketones Trace H Urine Occult Blood Trace-lysed Urine Nitrate Negative Urine Bilirubin Negative Urine Urobilinogen 0.2 Ur Leukocyte Esterase Negative Urine RBC 0-1/hpf Urine WBC 0-1/hpf Ur Squamous Epith Cells 0-1 /hpf Urine Bacteria None seen Ur Culture Indicated? Cult not indicated Nasal Screen MRSA (PCR) Salicylates U Opiates 300ng/mL cut Positive H Ur Oxycodone Screen Negative Urine Methadone Screen Negative Acetaminophen Ur Barbiturates Screen Negative U Tricyclic Antidepress Negative Ur Phencyclidine Scrn Negative Ur Amphetamines Screen Negative U Methamphetamines Scrn Negative Ur MDMA Scrn (Ecstasy) Negative U Benzodiazepines Scrn Positive H Urine Cocaine Screen Negative U Marijuana (THC) Screen Negative Ethyl Alcohol SARS-CoV-2 (PCR) 12/07/21 12/07/21 12/07/21 02:30 05:00 05:00 WBC 23.2 H RBC 5.62 H Hgb 15.1 Hct 45.8 MCV 81.5 MCH 26.8 MCHC 32.9 RDW 14.4 Plt Count 256 Neut % (Auto) 95.0 H Lymph % (Auto) 3.3 L [place] % (Auto) 1.6 L Eos % (Auto) 0.0 L Baso % (Auto) 0.1 Neut # (Auto) 98193 H Lymph # (Auto) 800 L [place] # (Auto) 400 Eos # (Auto) 0 Baso # (Auto) 0 PT INR APTT ABG pH ABG pCO2 ABG pO2 ABG HCO3 ABG Total CO2 ABG O2 Saturation ABG Base Excess FiO2 Sodium 131 L Potassium 2.9 L Chloride 92 L Carbon Dioxide 29 BUN 8 Creatinine 0.37 L Estimated GFR > 60 BUN/Creatinine Ratio 21.6 Glucose 179 H Lactate Calcium 9.3 Phosphorus Magnesium Total Bilirubin AST ALT Alkaline Phosphatase Ammonia Total Creatine Kinase CK-MB (CK-2) CK-MB (CK-2) Rel Index Troponin I NT-Pro-B Natriuret Pep Total Protein Albumin Globulin Albumin/Globulin Ratio Procalcitonin TSH Prolactin Urine Color Urine Appearance Urine pH Ur Specific [place] Urine Protein Urine Glucose (UA) Urine Ketones Urine Occult Blood Urine Nitrate Urine Bilirubin Urine Urobilinogen Ur Leukocyte Esterase Urine RBC Urine WBC Ur Squamous Epith Cells Urine Bacteria Ur Culture Indicated? Nasal Screen MRSA (PCR) Negative for mrsa Salicylates U Opiates 300ng/mL cut Ur Oxycodone Screen Urine Methadone Screen Acetaminophen Ur Barbiturates Screen U Tricyclic Antidepress Ur Phencyclidine Scrn Ur Amphetamines Screen U Methamphetamines Scrn Ur MDMA Scrn (Ecstasy) U Benzodiazepines Scrn Urine Cocaine Screen U Marijuana (THC) Screen Ethyl Alcohol SARS-CoV-2 (PCR) 12/07/21 12/07/21 05:00 06:35 WBC RBC Hgb Hct MCV MCH MCHC RDW Plt Count Neut % (Auto) Lymph % (Auto) [place] % (Auto) Eos % (Auto) Baso % (Auto) Neut # (Auto) Lymph # (Auto) [place] # (Auto) Eos # (Auto) Baso # (Auto) PT INR APTT ABG pH 7.55 H ABG pCO2 32.4 L ABG pO2 76 L ABG HCO3 28 H ABG Total CO2 29 ABG O2 Saturation 97 ABG Base Excess 6.0 H FiO2 36 Sodium Potassium Chloride Carbon Dioxide BUN Creatinine Estimated GFR BUN/Creatinine Ratio Glucose Lactate Calcium Phosphorus Magnesium 2.6 H Total Bilirubin AST ALT Alkaline Phosphatase Ammonia Total Creatine Kinase CK-MB (CK-2) CK-MB (CK-2) Rel Index Troponin I NT-Pro-B Natriuret Pep Total Protein Albumin Globulin Albumin/Globulin Ratio Procalcitonin TSH Prolactin Urine Color Urine Appearance Urine pH Ur Specific [place] Urine Protein Urine Glucose (UA) Urine Ketones Urine Occult Blood Urine Nitrate Urine Bilirubin Urine Urobilinogen Ur Leukocyte Esterase Urine RBC Urine WBC Ur Squamous Epith Cells Urine Bacteria Ur Culture Indicated? Nasal Screen MRSA (PCR) Salicylates U Opiates 300ng/mL cut Ur Oxycodone Screen Urine Methadone Screen Acetaminophen Ur Barbiturates Screen U Tricyclic Antidepress Ur Phencyclidine Scrn Ur Amphetamines Screen U Methamphetamines Scrn Ur MDMA Scrn (Ecstasy) U Benzodiazepines Scrn Urine Cocaine Screen U Marijuana (THC) Screen Ethyl Alcohol SARS-CoV-2 (PCR) PFSH Medical History Accident Chronic low back pain (01/07/06) Chronic narcotic dependence Depression Fusion of lumbar spine Hormone replacement therapy (postmenopausal) (07/03/05) Late eff spine/trunk fx (08/16/05) Unspecified essential hypertension (07/03/05) Surgical History H/O hysterectomy for benign disease History of cholecystectomy History of Mendez fundoplication Status post thoracic spinal fusion Status post-operative repair of hip fracture Family History Mother Alzheimer disease Father Pneumonia Social History household members: spouse and caregiver Smoking Status: Never smoker alcohol intake: current Assessment & Plan Assessment & Plan narrative: Ms. Ospina is a 66W with PMH s/p J-tube many years ago after a complicated Mendez fundoplication, opiate dependence due to chronic back pain who presents with vomiting, respiratory distress and lethargy likely secondary to aspiration pneumonia, and possible aspiration pneumonitis, and opiate overdose. 1. Acute encephalopathy from likely unintentional opiate overdose, with aspiration pneumonia contributing - IV Narcan drip necessary, as patient intermittently responsive to Narcan pushes, will likely require daily EKG's for QTc monitoring while on this, especially with concomitant azithromycin, and home citalopram 2. Acute on chronic hypoxemic respiratory failure from aspiration pneumonia, pulmonary edema, and possible aspiration pneumonitis - IV Vancomycin, IV Zosyn, and IV azithromycin for atypical coverage on-board, started on December 06, 2021 - Patient electively intubated on December 07, 2021, due to persistent tachypnea, somnolence, and impending respiratory failure - Will order CT chest/abd/pelvis with contrast (patient pre-treated with Solumedrol due to iodine allergy, unknown reaction) to better delineate lung involvement, and potential for intra-abdominal infection, given J-tube - Echocardiogram pending 3. Opiate dependence due to chronic low back pain, status post multiple spinal neurosurgeries - Very high doses of opiates prescribed outpatient, although patient has been on said meds for 12 years, according to caregiver - Propofol and Precedex used as sedative to avoid Fentanyl or benzodiazepenes in this patient that presented with opiate overdose 4. Hyponatremia, chronic, likely SIADH, stable 5. Hypokalemia - Possibly due to GI losses, with IV Lasix 40 mg one-time in ER contributing, too - Telemetry on-board, replenish as needed 6. J-tube, status post post-op complications from Mendez fundoplication many years ago - Can likely resume home tube feeds once patient has clinically improved 7. Hypertension - Precedex and propofol are helping with BP reduction for now - Can resume home amlodipine 10 mg daily 8. Depression/anxiety - Will continue home citalopram 10 mg daily Code: Full Code Proxy: Emre Dominguez, life partner I have utilized all available resources to reconcile the patient's home medications Time Spent With Patient Critical Care time: I spent a total of [] minutes of critical care time on this patient's care today; this time is exclusive of procedural time. Quality VTE Deep Vein Thrombosis/Pulmonary Embolism Present on Admission: No MIPS - Admit I confirm the patient?s Advance Care Plan is present, Code status is documented, Surrogate decision maker is in patient?s record [If Yes, STOP here]: Yes
--- NOTE | 2021-12-07 12:17 | PM.PROC.1 ---
Procedures Date/Time Date of procedure: 12/07/21 Time of procedure: 10:50 Intubation Time out performed: Yes Sedative: other (Propofol 120mg) Paralytic: other (succinylcholine 60mg, rocuronium 50mg) Laryngoscope: other (optical stylet) ET tube size: 7 ET tube uncuffed: No Tube secured depth (cm): 22 Tube secured location: teeth Tube placement confirmation: visualized tube passing through cords, equal breath sounds bilaterally, no breath sounds over epigastrium and confirmation by capnometry Patient tolerated procedure: well Intubation complications: none
--- NOTE | 2021-12-07 12:20 | PM.PROC.1 ---
Procedures Date/Time Date of procedure: 12/07/21 Time of procedure: 11:01 Arterial Line Time out performed: Yes Size (Gauge): 20 (Arrow) Technique used: guide wire technique Post-Procedure: dry sterile dressing placed Patient tolerated procedure: Well and No complications Complications: none Site: left and radial Additional comments: Ultrasound guidance used
[2021-12-07 12:28] LABS: Fractionated Inspired Oxygen 28; HCO3 ABG 26 mmol/L (22-26); Oxygen Saturation ABG 98 % (95-100); PCO2 ABG 38.4 mmHg (35-45); PO2 ABG 103 mmHg (80-100); TCO2 ABG 27 mmol/L (21-31); pH ABG 7.44 (7.35-7.45)
[2021-12-07] MEDS: CHLORHEXIDINE GLUCONATE 15 ML CUP PO ×2 (12:44→17:47)
[2021-12-07] MEDS: LACTATED RINGERS 1,000 ML 1000 ML IV (12:44)
--- NOTE | 2021-12-07 14:17 | DIET.CONS ---
Addendum entered by Melissa Nicholson 12/07/21 15:44: If patient is on propofol: 237ml @ 20ml/hr for 12 hours If patient is off propofol: 711ml @ 55-60ml/hr for 12 hours Original Note: Dietary Consultation Note Admission Date: 12/06/2021 20:28 Assessment: 66 y/o F c PMH j-tube r/t danny fundoplication complications. PMH opiate dependence, HTN, chronic respiratory failure. Intubated today. Caregiver, Emre, requesting use of home TF regimen. Reports usual use of Peptamen 1.0 x 65-68 ml/hr. Last admit, Rodriguez and Emre requested a lower rate while here of 55 ml/hr d/t nausea. Emre would like to proceed with this again this visit, which is appropriate once pt is no longer on propofol. Usual intake in combination with propofol would be 1301kcals, which is appropriate but much more kcals than she usually has. Usual kcal intake with formula: 711kcals with very little PO during the day. Usually runs formula for approx. 12 hours at night only. Rodriguez is receiving 50 mcg propofol =590 kcals. Of note, last visit the formula documented was Peptamen 1.5. Emre confirmed the current formula is Peptamen or Vital 1.0. Denies recent changes to formula. Would rec starting with 1 carton (237ml) of usual formula while propofol is at current dose. Once propofol is d/c'd, usual regimen can resume (3 cartons of 237ml @55-60ml/hr). Emre reports that Rodriguez does not like to run feedings all day, so does the best she can to get nutrition in at night. This likely contributes to the low kcal intake via TF. Has a backpack she can wear for daytime feeds but does not prefer. Some concerns for malnutrition given very low kcal regimen. Ht: 149.86 cm Wt: 74.5 kg BMI: 33.1 Last BM: 12/06/21 (12/06/21 21:16) MNA: 13 David Score: 15 Labs: RBC 5.62 X10^6/uL (4.0-5.2) H 12/07/21 05:00 Hgb 15.1 g/dL (12.0-16.0) 12/07/21 05:00 Hct 45.8 % (36-46) 12/07/21 05:00 Creatinine 0.37 mg/dL (0.52-1.04) L 12/07/21 05:00 Lactate 1.8 mmol/L (0.7-2.1) 12/06/21 16:47 NT-Pro-B Natriuret Pep 181 pg/mL (<125) H 12/06/21 16:47 Nutrition Diagnosis: inadequate PO r/t hx of complications with danny procedure aeb j-tube use, pt dependent on EN formula, and caregiver report Interventions: 1. Initiate home tube feed routine at reduced rate while on propofol. Peptamin or Vital 1.0 continuous feed at 20mL/h nocturnal (1700h-0500h), no formula feeds during day. 2. Free water flushes usually 350mL q4h with meds. Hospitalist to manage fluids. 3. Ensure hob elevated at least 30 degrees while feeding, pt at lower risk of aspiration as pt being fed into jejunum, however, pt has historically reported occasional backflow into stomach and pt admitted for aspiration. 4. Ensure home formula not . Monitoring/Evaluations: weights, labs, and TF tolerance. RD f/u Friday. Electronically Signed by: Melissa Nicholson 12/07/21 14:17 Clinical Dietitian [address] [address]
--- NOTE | 2021-12-07 15:00 | CM.IDA ---
Initial DCP Assessment Note Pt is a 66 yo female, resident of [place], arrives w/Shortness of Breath/Dyspnea and admitted to the ICU for management of unintentional opiate overdose, respiratory failure from aspiration pneumonia ER HPI: history of esophageal dysmotility long-term PEG tube, chronic pain on multiple opiates, chronic aspiration on oxygen at home, presenting today with decreasing mental status. states that she was at her baseline last night and this morning. This afternoon he gave her her normal dose of morphine in fact of her normal dose of morphine however she became unarousable. PCP: Julián Arriaga Payer: MARK/MAVIS Reviewed chart, pt discussed in multidisciplinary rounds this morning. Patient lives w/SO Emre who is patient's primary (only?) animal care technician. Patient intubated this morning to protect airway Patient has/uses walker vs w/c at home and has a j tube that Emre helps manage Discussed today's needs w/RN Charlie; no need for HALFWAY HOUSE COUNSELOR today, patient is intubated and S.O. has medical update. CM team will plan to follow closely as medical POC unfolds, will remain available to discuss DC planning needs w/patient and SO when appropriate MARY KAY Silva Discharge Planning/Care Management CM Discharge Assessment Start: 12/07/21 14:31 Freq: Status: Active Protocol: Document 12/07/21 14:31 DWIGHT (Rec: 12/07/21 15:00 [id number]) Discharge Planning Assessment Assigned Dean Of Faculty MARY KAY Gunn DPOA/Assigned Designee Name Emre Dominguez SChris Contact Information [phone] Advance Directives? Yes Advance Directives on File Yes History Provided By Medical Record Has Patient been admitted in last 30 No days? Comment Here in September 2021 for sepsis secondary to aspiration pneumonia Prior Living Arrangements House Household Members significant other Type of transporation used prior to Relies on Others admit Independent with ADL's No Is patient alert and oriented? Yes Needs Assistance With Bathing,Grooming,Managing Medications,Home Chores / Shopping Comment MARK/MAVIS, RICK program ? Barriers to Discharge Yes Comment Needs unknown. Patient became increasingly lethargic this morning, patient did not respond to bolus does of narcan this morning so Patient intubated to protect airway Transportation Arrangement Caregiver/significant other vs facility depending on medical POC/DCP Additional Comment CM team following closely as medical POC unfolds
[2021-12-07 15:24] LABS: Add Manual Diff / Slide Review NO; Basophils Absolute Auto 0 /uL (0-100); Basophils Percent Auto 0.1 % (0-2); Eosinophils Absolute Auto 0 /uL (0-450); Hematocrit 38.6 % (36-46); Hemoglobin 12.7 g/dL (12.0-16.0); Lymphocytes Absolute Auto 600 /uL (1100-4500); Lymphocytes Percent Auto 4.2 % (25-40); Mean Corpuscular Hemoglobin 26.7 PG (26-34); Mean Corpuscular Volume 80.9 fL (80-100); Monocytes Absolute Auto 300 /uL (0-900); Monocytes Percent Auto 1.8 % (3-14); Neutrophils Absolute Auto 13800 /uL (1500-7000); Neutrophils Percent Auto 93.9 % (50-75); Platelet Count 215 X10^3/uL (150-400); Red Blood Cell Count 4.77 X10^6/uL (4.0-5.2); Red Cell Distribution Width 14.6 % (11.6-14.8); White Blood Cell Count 14.7 X10^3/uL (4.5-11.0)
[2021-12-07 15:35] LABS: Albumin 3.4 g/dL (3.5-5.0); BUN Creatinine Ratio 25.6 (6-22); Blood Urea Nitrogen 10 mg/dL (7-17); Calcium 8.3 mg/dL (8.4-10.2); Carbon Dioxide 25 mmol/L (22-32); Chloride 100 mmol/L (98-107); Estimated Glomerular Filt Rate > 60 mL/min (>60); Glucose 147 mg/dL (80-110); HEMOLYSIS < 15 (0-50); Magnesium 1.9 mg/dL (1.6-2.3); Potassium 3.6 mmol/L (3.4-5.1); Sodium 130 mmol/L (137-145)
--- NOTE | 2021-12-07 18:34 | PC.NURSE ---
Addendum entered by Rey Germain R.N. 12/07/21 19:08: Called to CT room inquiring why reports were not yet back from earlier scans. CT staff state technical issue and reports should be available soon. Original Note: Rec'd pt in bed resting. Pt initially responsive to verbal although quite drowsy and quickly falls back to sleep with decreased stimuli. Pt is notably tachypneic with RR 40s-50s. SPO2 99% on 4L NC. Bedside rounds done with tele-lobby concierge at 0800. Reviewed pt assessment, labs, VS, plan of care. Plan is to monitor pt and possibly decrease narcan gtt at noon. Pt became less responsive over the next two hours and was again assessed with tele lobby concierge at bedside. S/o Emre also at bedside. Discussed potential for intubation. After Dr. Yadav and Dr. Wilcox spoke, it was decided that pt should be intubated. Dr. Tucker arrived to bedside for ETT and A-line placement. Pt was intubated with 7.0 ETT 22 at the teeth confirmed by capnometry, bilateral breath sounds, and CXR. Vent settings per RT. Pt placed on propofol and precedex for sedation. Dr. Wilcox rounded post intubation and states no need for OGT since pt has feeding tube. Silver colored bracelet sent home with Emre. Emre was instructed to bring pt's tube feed formula from home by immigration services officer and this RN. None received. Soft wrist restraints in place due to pt intermittently reaching for tubes/lines.
[2021-12-07] MEDS: POTASSIUM PHOSPHATE 45 MMOL in SODIUM CHLORIDE 0.9% 500 ML 85.833 ML IV (18:49)
[2021-12-07] MEDS: propofoL 1,000 MG/100 ML VIAL 4.47 MG IV (20:51)
[2021-12-07] MEDS: NOREPINEPHRINE BITARTRATE/D5W 4 MG/250 ML PLAST..BAG 7.5 MG IV (21:28)
[2021-12-07] MEDS: CLOTRIMAZOLE/BETAMETHASONE CRM 15 GM 1 APPLIC TOP (21:51)
[2021-12-07] MEDS: AZITHROMYCIN 500 MG in DEXTROSE 5% IN WATER 250 ML IV (22:25)
--- NOTE | 2021-12-07 22:50 | PC.NURSE ---
Addendum entered by Mimi Callahan R.N. 12/08/21 05:41: HR in the low 40s propofol decreased to 10mcg from 13mcg. Pt abusable, pointed to the TV to be turned on, but then fell back to sleep after a couple of minutes. Addendum entered by Mimi Callahan R.N. 12/08/21 04:30: Patient has been sedated for few hours. Drips running at this time are: precedex 0.2mls/hr, propofol 13mcg/kg/min. Levophen has been paused since 2339. No moaning or grimacing noted to indicate pain or discomfort. o2sats 99%. Vent settings RR 14, TV 450, Peep 15 & FIO2 28%. Addendum entered by Mimi Callahan R.N. 12/07/21 23:44: Patient woke up unexpectedly. Restless and agitated. Fighting vent and coughing, RT notified and arrived. Ronit RN able to suction patient, which helped. Sedation meds titrated. Patient pointed at TV and shakes her head that she wanted on. Chap stick applied to lips. Patient calmer after suction. Original Note: At the begging of the Noc shift patient was resting in bed, intubated. Mostly unresponsive but would try to open eyes when name was heard. about 30min later RT in to suction patient which caused the patient to fully wake up and became agitated. IV meds titrated to get patient back sedated. at 2250 pt has been sedated for couple of hrs. No moaning or grimacing noted at this time. Patient being monitored often.
--- NOTE | 2021-12-07 23:40 | PM.ICURNDS ---
- Date Patient Seen: 12/07/21 Time Patient Seen: 20:10 :: This patient was seen via real time interactive two-way audiovisual telecommunication. Note: Patient was intubated during the day shift. During ICU multidisciplinary rounds, patient's RASS was 0 on propofol 15 mcg/kg/min and Precedex 0.1 mcg/kg/hr. Recommended increase in analgosedation to prevent a self-extubation. Naloxone infusion was turned off at the time of intubation. Suspect that patient can have a SAT/SBT in AM and be extubated. If she is not extubated during the 12/08 dayshift, she should be started on enteral nutrition.
[2021-12-08] VITALS (52 sets, daily range): BP systolic 91–152; BP diastolic 53–78; PULSE 40–81; RESP 12–30; TEMP 36.6–36.7; O2SAT 93–100
[2021-12-08 00:07] LABS: Vancomycin Trough 18.7 ug/mL (10-20)
[2021-12-08] MEDS: VANCOMYCIN 1,000 MG/200 ML PIGGYBACK 200 MG IV ×2 (00:13→12:22)
[2021-12-08] MEDS: CHLORHEXIDINE GLUCONATE 15 ML CUP PO ×2 (00:19→05:22)
[2021-12-08] MEDS: PIPERACILLIN/TAZO 3.375 GM in SODIUM CHLORIDE 0.9% 100 ML 25 ML IV ×3 (01:11→17:37)
[2021-12-08 02:46] LABS: Vancomycin Peak 37.9 ug/mL (20-40)
[2021-12-08 05:16] LABS: Add Manual Diff / Slide Review NO; Basophils Absolute Auto 0 /uL (0-100); Basophils Percent Auto 0.2 % (0-2); Eosinophils Absolute Auto 0 /uL (0-450); Eosinophils Percent Auto 0.1 % (2-4); Hematocrit 36.4 % (36-46); Hemoglobin 12.3 g/dL (12.0-16.0); Lymphocytes Absolute Auto 700 /uL (1100-4500); Lymphocytes Percent Auto 6.4 % (25-40); Mean Corpuscular HGB Conc 33.9 % (30-36); Mean Corpuscular Hemoglobin 27.4 PG (26-34); Mean Corpuscular Volume 80.9 fL (80-100); Monocytes Absolute Auto 500 /uL (0-900); Monocytes Percent Auto 4.8 % (3-14); Neutrophils Absolute Auto 9200 /uL (1500-7000); Neutrophils Percent Auto 88.5 % (50-75); Platelet Count 227 X10^3/uL (150-400); Red Cell Distribution Width 14.8 % (11.6-14.8); White Blood Cell Count 10.4 X10^3/uL (4.5-11.0)
[2021-12-08 05:19] LABS: BUN Creatinine Ratio 28.1 (6-22); Blood Urea Nitrogen 16 mg/dL (7-17); Calcium 8.2 mg/dL (8.4-10.2); Carbon Dioxide 24 mmol/L (22-32); Chloride 102 mmol/L (98-107); Estimated Glomerular Filt Rate > 60 mL/min (>60); Glucose 130 mg/dL (80-110); HEMOLYSIS 34 (0-50); Magnesium 1.9 mg/dL (1.6-2.3); Phosphorous 4.9 mg/dL (2.8-4.1); Potassium 4.1 mmol/L (3.4-5.1); Sodium 132 mmol/L (137-145)
[2021-12-08] MEDS: HEPARIN 5,000 UNIT/ML VIAL 5000 UNIT SUBCUT ×3 (05:22→22:03)
[2021-12-08] MEDS: CITALOPRAM 10 MG TABLET 20 MG TUBE (09:03)
[2021-12-08] MEDS: PANTOPRAZOLE 40 MG VIAL IV ×2 (09:03→22:01)
--- NOTE | 2021-12-08 09:34 | P.TELICUPN_ITS ---
Subjective Subjective :: This patient was seen via real time interactive two-way audiovisual telecommunication. No acute issues overnight. Extubated to 1 liter NC this morning at 8 am. Off pressor. Patient is awake and following commands. PT/OT consultation. Current Medications Current Medications Medications: Home Medications CHOLECALCIFEROL (VITAMIN D) 2,000 iu TUBE BID #0 09/04/12 [History Confirmed 12/06/21] albuterol sulfate 90 mcg/actuation aerosol inhaler (Proventil HFA) 2 puff INH Q4HP PRN #8.5 gm 09/04/12 [History Confirmed 12/06/21] carisoprodol 350 mg tablet 1 tab TUBE Q4H PRN #0 09/04/12 [History Confirmed 12/06/21] diazepam 5 mg tablet 10 mg PO Q8H PRN #0 09/04/12 [History Confirmed 12/06/21] fentanyl 100 mcg/hr transdermal patch 200 mcg TOPICAL Q72H #0 09/04/12 [History Confirmed 12/06/21] omeprazole 40 mg-sodium bicarbonate 1,680 mg oral packet (Zegerid) 2 pkt FEEDING TUBE BID #0 09/04/12 [History Confirmed 12/06/21] polyethylene glycol 3350 17 gram/dose oral powder 17 gm FEEDING TUBE PRN PRN #0 09/04/12 [History Confirmed 12/06/21] DIPHENOXYLATE/ATROPINE SULFATE (DIPHENOXYLATE/ATROPINE) 1 - 2 tab FEEDING TUBE QIDP PRN #0 09/07/12 [History Confirmed 12/06/21] albuterol sulfate 3 ml INH PRN PRN #0 09/07/12 [History Confirmed 12/06/21] citalopram 10 mg/5 mL oral solution 20 mg TUBE QDAY #0 09/07/12 [History Confirmed 12/06/21] ondansetron HCl 4 mg/5 mL oral solution (Zofran) 1 - 2 tsp TUBE Q6HP PRN #0 09/07/12 [History Confirmed 12/06/21] promethazine 25 mg tablet 1 - 2 tab TUBE Q6HP PRN #0 09/07/12 [History Confirmed 12/06/21] Ketoconazole 1 glenis TOPICAL PRN PRN #0 12/23/16 [History Confirmed 12/06/21] amlodipine 10 mg tablet 10 mg FEEDING TUBE QDAY #0 12/23/16 [History Confirmed 12/06/21] cyclosporine 0.05 % eye drops in a dropperette (Restasis) 1 drp/day EYE-BOTH BID #0 12/23/16 [History Confirmed 12/06/21] desonide 0.05 % lotion 1 glenis TOPICAL PRN PRN #0 12/23/16 [History Confirmed 12/06/21] potassium chloride 20 mEq/15 mL oral liquid 5.625 ml FEEDING TUBE DAILY #0 12/23/16 [History Confirmed 12/06/21] diphenhydramine HCl 25 mg capsule (Benadryl) 1 - 2 tab FEEDING TUBE Q4-6H PRN 05/24/18 [History Confirmed 12/06/21] mupirocin 2 % topical ointment 1 applic TOPICAL TID 05/24/18 [History Confirmed 12/06/21] nut.tx.impaired digest fxn 0.068 gram-1.5 kcal/mL oral liquid (Peptamen 1.5) 750 ml FEEDING TUBE QPM 05/24/18 [History Confirmed 12/06/21] cyanocobalamin (vitamin B-12) 1,000 mcg tablet 1,000 mcg PO BID 06/09/21 [History Confirmed 12/06/21] morphine 10 mg/5 mL oral solution 30 mg FEEDING TUBE Q6H PRN 06/09/21 [History Confirmed 12/06/21] naloxone 4 mg/actuation nasal spray (Narcan) 4 mg INTRANASAL Q3M PRN 06/09/21 [History Confirmed 12/06/21] sennosides 8.6 mg tablet (senna) 8.6 mg PO BEDTIME PRN 06/09/21 [History Conf irmed 12/06/21] triamcinolone acetonide 0.5 % topical cream 1 applic TOPICAL BID PRN 06/09/21 [History Confirmed 12/06/21] fentanyl 50 mcg/hr transdermal patch 50 mcg TOPICAL Q72H 12/06/21 [History Co nfirmed 12/06/21] hydromorphone 8 mg tablet 8 mg FEEDING TUBE TID PRN MDD 24 12/06/21 [History Confirmed 12/06/21] Visit Medications (administered) Generic Name Dose Route Start Last Admin Trade Name Freq PRN Reason Stop Dose Admin Amlodipine Besylate 10 mg 12/07/21 10:15 12/08/21 08:22 Amlodipine 5 Mg Tablet TUBE Not Given DAILY [facility] Betamethasone/Clotrimazole 1 applic 12/07/21 21:00 12/07/21 21:51 Clotrimazole/Betamethasone Crm 15 Gm TOP 12/12/21 21:00 1 applic BID SHIMON Administration Chlorhexidine Gluconate 15 ml 12/07/21 12:00 12/08/21 05:22 Chlorhexidine Gluconate 15 Ml Cup PO 15 ml Q6HR SHIMON Administration Citalopram Hydrobromide 20 mg 12/07/21 10:15 12/08/21 09:03 Citalopram 10 Mg Tablet TUBE 20 mg DAILY SHIMON Administration Heparin Sodium (Porcine) 5,000 unit 12/07/21 06:00 12/08/21 05:22 Heparin 5,000 Unit/Ml Vial SUBCUT 5,000 unit Q8HR SHIMON Administration Hydralazine HCl 10 mg 12/07/21 09:54 12/07/21 10:19 Hydralazine 20 Mg/Ml Vial IV 10 mg Q6HR PRN Administration Hypertension Azithromycin 500 mg/ Dextrose 250 mls @ 250 mls/hr 12/06/21 22:00 12/08/21 00:30 IV Infused Q24H SHIMON Infusion Piperacillin Sod/Tazobactam 100 mls @ 25 mls/hr 12/07/21 01:00 12/08/21 09:03 Sod 3.375 gm/ Sodium Chloride IV 25 mls/hr Q8H SHIMON Administration Naloxone HCl 2 mg/ Sodium 502 mls @ 62.75 mls/hr 12/06/21 21:19 12/07/21 10:40 Chloride IV 0 mg/hr TITRATE SHIMON 0 mls/hr Titration Protocol 0.25 MG/HR Propofol 1,000 mg in 100 mls @ 2.235 mls/hr 12/07/21 10:45 12/08/21 08:21 Propofol IV 0 mcg/kg/min TITRATE SHIMON 0 mls/hr Titration Protocol 5 MCG/KG/MIN dexmedeTOMIDine in 0.9 % NaCL 400 mcg in 100 mls @ 3.725 mls/hr 12/07/21 10:45 12/08/21 08:43 Precedex IV 0 mcg/kg/hr TITRATE SHIMON 0 mls/hr Titration Protocol 0.2 MCG/KG/HR NOREPINEPHRINE BITARTRATE/D5W 4 mg in 250 mls @ 7.5 mls/hr 12/07/21 14:43 12/07/21 23:41 Levophed IV 0 mcg/min TITRATE SHIMON 0 mls/hr Titration Protocol 2 MCG/MIN Naloxone HCl 0.4 mg 12/06/21 21:19 12/07/21 09:55 Naloxone 0.4 Mg/Ml Vial IV 0.4 mg Q2MIN PRN Administration Opiate Reversal Pantoprazole Sodium 40 mg 12/07/21 21:00 12/08/21 09:03 Pantoprazole 40 Mg Vial IV 40 mg BID SHIMON Administration Objective Ventilator Parameters: Ventilator Settings FiO2 28 RT Vent Frequency 0 Ventilator Tidal Volume 450 Exhaled Positive End Expiratory 12 Pressure Ventilator Pressure Support 12 Inspiratory Phase Time 1.1 I:E Ratio 1:2.5 Patient Position HOB >= 30 degrees Labs Result Diagrams: 12/08/21 04:55 12/08/21 04:55 Labs: Laboratory Results - last 24 hr 12/07/21 12/07/21 12/07/21 12:10 15:00 15:00 WBC 14.7 H RBC 4.77 Hgb 12.7 Hct 38.6 MCV 80.9 MCH 26.7 MCHC 33.0 RDW 14.6 Plt Count 215 Neut % (Auto) 93.9 H Lymph % (Auto) 4.2 L [place] % (Auto) 1.8 L Eos % (Auto) 0.0 L Baso % (Auto) 0.1 Neut # (Auto) 62622 H Lymph # (Auto) 600 L [place] # (Auto) 300 Eos # (Auto) 0 Baso # (Auto) 0 ABG pH 7.44 ABG pCO2 38.4 ABG pO2 103 H ABG HCO3 26 ABG Total CO2 27 ABG O2 Saturation 98 ABG Base Excess 2.0 FiO2 28 Sodium 130 L Potassium 3.6 Chloride 100 Carbon Dioxide 25 BUN 10 Creatinine 0.39 L Estimated GFR > 60 BUN/Creatinine Ratio 25.6 H Glucose 147 H Calcium 8.3 L Phosphorus 2.0 L D Magnesium 1.9 Albumin 3.4 L Vancomycin Peak Vancomycin Trough 12/07/21 12/08/21 12/08/21 23:36 02:20 04:55 WBC 10.4 RBC 4.50 Hgb 12.3 Hct 36.4 MCV 80.9 MCH 27.4 MCHC 33.9 RDW 14.8 Plt Count 227 Neut % (Auto) 88.5 H Lymph % (Auto) 6.4 L [place] % (Auto) 4.8 Eos % (Auto) 0.1 L Baso % (Auto) 0.2 Neut # (Auto) 9200 H Lymph # (Auto) 700 L [place] # (Auto) 500 Eos # (Auto) 0 Baso # (Auto) 0 ABG pH ABG pCO2 ABG pO2 ABG HCO3 ABG Total CO2 ABG O2 Saturation ABG Base Excess FiO2 Sodium Potassium Chloride Carbon Dioxide BUN Creatinine Estimated GFR BUN/Creatinine Ratio Glucose Calcium Phosphorus Magnesium Albumin Vancomycin Peak 37.9 Vancomycin Trough 18.7 12/08/21 04:55 WBC RBC Hgb Hct MCV MCH MCHC RDW Plt Count Neut % (Auto) Lymph % (Auto) [place] % (Auto) Eos % (Auto) Baso % (Auto) Neut # (Auto) Lymph # (Auto) [place] # (Auto) Eos # (Auto) Baso # (Auto) ABG pH ABG pCO2 ABG pO2 ABG HCO3 ABG Total CO2 ABG O2 Saturation ABG Base Excess FiO2 Sodium 132 L Potassium 4.1 Chloride 102 Carbon Dioxide 24 BUN 16 Creatinine 0.57 Estimated GFR > 60 BUN/Creatinine Ratio 28.1 H Glucose 130 H Calcium 8.2 L Phosphorus 4.9 H D Magnesium 1.9 Albumin Vancomycin Peak Vancomycin Trough Exam Vital Signs (past 8 hours): - 12/08/21 02:00 12/08/21 02:01 12/08/21 02:26 Pulse Rate 48 L 48 L 48 L Respiratory Rate 14 14 14 Blood Pressure 110/59 L 111/59 L Pulse Oximetry 99 99 99 12/08/21 02:30 12/08/21 03:00 12/08/21 03:01 Pulse Rate 48 L 48 L 48 L Respiratory Rate 14 14 14 Blood Pressure 103/60 107/61 Pulse Oximetry 99 99 99 12/08/21 03:03 12/08/21 03:30 12/08/21 03:50 Pulse Rate 49 L 48 L 46 L Respiratory Rate 14 14 14 Blood Pressure 109/58 L 107/60 111/58 L Pulse Oximetry 99 97 99 12/08/21 04:00 12/08/21 04:30 12/08/21 04:33 Pulse Rate 45 L 45 L 46 L Respiratory Rate 14 14 14 Blood Pressure 110/61 120/65 121/62 Pulse Oximetry 99 99 99 12/08/21 05:00 12/08/21 05:30 12/08/21 05:35 Pulse Rate 45 L 44 L 44 L Respiratory Rate 14 14 14 Blood Pressure 127/69 139/69 140/69 Pulse Oximetry 98 99 99 12/08/21 06:00 12/08/21 07:00 12/08/21 07:30 Pulse Rate 43 L 43 L 42 L Respiratory Rate 14 14 14 Blood Pressure 124/69 131/69 137/71 Pulse Oximetry 99 99 98 12/08/21 08:00 12/08/21 08:01 12/08/21 08:20 Pulse Rate 42 L 42 L Respiratory Rate 14 14 Blood Pressure 131/67 Pulse Oximetry 99 98 98 12/08/21 08:30 12/08/21 09:00 12/08/21 09:01 Pulse Rate 60 48 L 46 L Respiratory Rate 24 22 24 Blood Pressure 152/78 H 124/65 Pulse Oximetry 95 97 97 Fraction of Inspired Oxygen 28 Oxygen Delivery Method Mechanical Ventilation Oxygen Flow Rate 2 Quality TeleICU VTE Deep Vein Thrombosis/Pulmonary Embolism Present on Admission: No Assessment & Plan Assessment & Plan narrative: # Acute encephalopathy -- Resolved -- Avoid narcotics and sedatives -- Early mobility -- Daily CAM ICU # Acute respiratory failure -- Secondary to severe encephalopathy -- Passed SBT and extubated to NC -- HOB elevation -- ASpiration precaution -- Encourage IS -- PT/OT consultation -- GOal SpO2 > 88% # Hypotension -- Resolved post extubation -- Sepsis workup as below # Sepsis -- Concern for PNA -- Cx negative to date -- Cont abx for 48 hours and if cx are negative then will deescalate therapy ENDO: -- Goal BS < 180 D/w RN and RT. Time Spent With Patient Critical Care time: I spent a total of [] minutes of critical care time on this patient's care today; this time is exclusive of procedural time.
--- NOTE | 2021-12-08 13:32 | CM.DPC ---
Addendum entered by MARY KAY Boyd 12/08/21 14:05: ADD: PT completed initial eval and SW witnessed pt ambulating the halls with walker and SBA. PT recommending safe d/c home with Sig Other/RICK CG Emre when medically stable and pt seems back to baseline and no further needs at this time. SW to follow up with pt and Emre to determine who here RICK CM is so that H&P can be faxed for review for this admission. BF Original Note: DCP Cont: Per MD, pt was successfully extubated this morning and per RN pt seems to be making good progress and tele-material distributor recommended PT/OT. SW updated PT that new orders placed for initial eval and unfortunately OT has left for the day and not available tomorrow (Aurelia) but PT will review and assess pt now. Per RN, pt's Sig Other/CG Emre is not currently bedside and is usually bedside a few times throughout the day. Plan: SW to follow closely for PT eval towards determining any d/c planning needs for possible d/c home tomorrow pending progress and stability. MARY KAY Boyd
--- NOTE | 2021-12-08 13:59 | P.PN_ITS ---
Subjective Subjective Date Patient Seen: 12/08/21 Interval history: 66 y/o female with aspiration pneumonia intubated for progressive respiratory failure. She is wide awake today and appears alert on the ventilator. Plans underway for extubation Patient denies pain. Exam Vital Signs (past 8 hours): - 12/08/21 06:00 12/08/21 07:00 12/08/21 07:30 Pulse Rate 43 L 43 L 42 L Respiratory Rate 14 14 14 Blood Pressure 124/69 131/69 137/71 Pulse Oximetry 99 99 98 12/08/21 08:00 12/08/21 08:01 12/08/21 08:20 Pulse Rate 42 L 42 L Respiratory Rate 14 14 Blood Pressure 131/67 Pulse Oximetry 99 98 98 12/08/21 08:30 12/08/21 09:00 12/08/21 09:01 Pulse Rate 60 48 L 46 L Respiratory Rate 24 22 24 Blood Pressure 152/78 H 124/65 Pulse Oximetry 95 97 97 12/08/21 09:30 12/08/21 10:00 12/08/21 10:03 Pulse Rate 42 L 43 L 41 L Respiratory Rate 21 29 H 22 Blood Pressure 143/69 H 144/67 H Pulse Oximetry 97 99 98 12/08/21 10:31 12/08/21 11:00 Pulse Rate 40 L 41 L Respiratory Rate 20 12 Blood Pressure 127/63 Pulse Oximetry 96 97 Fraction of Inspired Oxygen 28 Oxygen Delivery Method Nasal Cannula Oxygen Flow Rate 2 Narrative Exam Narrative: calm female on ventilator, awake and alert HENWV Other: ET tube in place Resp Other: Lungs: clear to auscultation Cardio Other: CV: RRR nl Sl S2 GI Other: Abd: soft/ non tender/ non distended Extrem Other: No edema Objective Labs Result Diagrams: 12/08/21 04:55 12/08/21 04:55 Labs: Laboratory Results - last 24 hr 12/07/21 12/07/21 12/07/21 15:00 15:00 23:36 WBC 14.7 H RBC 4.77 Hgb 12.7 Hct 38.6 MCV 80.9 MCH 26.7 MCHC 33.0 RDW 14.6 Plt Count 215 Neut % (Auto) 93.9 H Lymph % (Auto) 4.2 L [place] % (Auto) 1.8 L Eos % (Auto) 0.0 L Baso % (Auto) 0.1 Neut # (Auto) 05129 H Lymph # (Auto) 600 L [place] # (Auto) 300 Eos # (Auto) 0 Baso # (Auto) 0 Sodium 130 L Potassium 3.6 Chloride 100 Carbon Dioxide 25 BUN 10 Creatinine 0.39 L Estimated GFR > 60 BUN/Creatinine Ratio 25.6 H Glucose 147 H Calcium 8.3 L Phosphorus 2.0 L D Magnesium 1.9 Albumin 3.4 L Vancomycin Peak Vancomycin Trough 18.7 12/08/21 12/08/21 12/08/21 02:20 04:55 04:55 WBC 10.4 RBC 4.50 Hgb 12.3 Hct 36.4 MCV 80.9 MCH 27.4 MCHC 33.9 RDW 14.8 Plt Count 227 Neut % (Auto) 88.5 H Lymph % (Auto) 6.4 L [place] % (Auto) 4.8 Eos % (Auto) 0.1 L Baso % (Auto) 0.2 Neut # (Auto) 9200 H Lymph # (Auto) 700 L [place] # (Auto) 500 Eos # (Auto) 0 Baso # (Auto) 0 Sodium 132 L Potassium 4.1 Chloride 102 Carbon Dioxide 24 BUN 16 Creatinine 0.57 Estimated GFR > 60 BUN/Creatinine Ratio 28.1 H Glucose 130 H Calcium 8.2 L Phosphorus 4.9 H D Magnesium 1.9 Albumin Vancomycin Peak 37.9 Vancomycin Trough PFSH Medical History Accident Chronic low back pain (01/07/06) Chronic narcotic dependence Depression Fusion of lumbar spine Hormone replacement therapy (postmenopausal) (07/03/05) Late eff spine/trunk fx (08/16/05) Unspecified essential hypertension (07/03/05) Surgical History H/O hysterectomy for benign disease History of cholecystectomy History of Mendez fundoplication Status post thoracic spinal fusion Status post-operative repair of hip fracture Family History Mother Alzheimer disease Father Pneumonia Social History household members: significant other Smoking Status: Never smoker alcohol intake: current Assessment & Plan Assessment & Plan narrative: Ms. Ospina is a 66W with PMH s/p J-tube many years ago after a complicated Mendez fundoplication, opiate dependence due to chronic back pain who presents with vo miting, respiratory distress and lethargy likely secondary to aspiration pneumonia, and possible aspiration pneumonitis, and opiate overdose. 1. Acute encephalopathy from likely unintentional opiate overdose, with aspiration pneumonia contributing ?- IV Narcan drip necessary, as patient intermittently responsive to Narcan pushes, will likely require daily EKG's for QTc monitoring while on this, e specially with concomitant azithromycin, and home citalopram -Patient extubated today, will d/c narcan drip 2. Acute on chronic hypoxemic respiratory failure from aspiration pneumonia, pulmonary edema, and possible aspiration pneumonitis ?- IV Vancomycin, IV Zosyn, and IV azithromycin for atypical coverage on-board, started on December 06, 2021 ?- Patient electively intubated on December 07, 2021, due to persistent tachypnea, somnolence, and impending respiratory failure ?- Will order CT chest/abd/pelvis with contrast (patient pre-treated with Solumedrol due to iodine allergy, unknown reaction) to better delineate lung involvement, and potential for intra-abdominal infection, given J-tube ?- Echocardiogram results: The left ventricle is normal in size and wall thickness. The left ventricle is hyperdynamic. The ejection fraction is estimated to be 70-75%. LVEF has increased. There is possible minimal intracacity obstruction. There are no focal wall motion abnormalities. Diastolic function could not be accurately assessed due to unobtainable data. ? The right ventricle is mildly dilated. The right ventricular systolic function is normal. Pulmonary artery pressures cannot be estimated because of the lack of a measurable TR jet velocity. ? The left atrium is mildly dilated. Right atrial size is normal. ? There is no significant valvular heart disease. ? The aortic root is normal size. 3. Opiate dependence due to chronic low back pain, status post multiple spinal neurosurgeries ?- Very high doses of opiates prescribed outpatient, although patient has been on said meds for 12 years, according to caregiver ?- Propofol and Precedex used as sedative to avoid Fentanyl or benzodiazepenes in this patient that presented with opiate overdose -d/c propofol and precedex 4. Hyponatremia, chronic, likely SIADH, stable 5. Hypokalemia ?- Possibly due to GI losses, with IV Lasix 40 mg one-time in ER contributing, too ?- Telemetry on-board, replenish as needed -recheck labs in am 6. J-tube, status post post-op complications from Mendez fundoplication many years ago ?- Can likely resume home tube feeds once patient has clinically improved -resume tube feeds 7. Hypertension ?- Precedex and propofol are helping with BP reduction for now ?- Can resume home amlodipine 10 mg daily 8. Depression/anxiety ?- Will continue home citalopram 10 mg daily 9. Transfer out of ICU today Time Spent With Patient Critical Care time: I spent a total of [] minutes of critical care time on this patient's care today; this time is exclusive of procedural time. Quality VTE Deep Vein Thrombosis/Pulmonary Embolism Present on Admission: No
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
--- NOTE | 2021-12-08 16:03 | PC.NURSE ---
Addendum entered by Angelita Londono R.N. 12/08/21 18:28: Pt states that she receives tube feedings at 2200 and 0200 at home, geriatric care manager brought in her home formula at bedside Original Note: Day shift note: Pt sitting up in bed awake, able to nod head to yes and no questions, indicates that she would like the ETT out, reduced sedation to half dose at 0730 then all sedation turned off at 0800, contacted RT to perform weaning trial. Trial started at 0820, no s/s of distress, pt able to be extubated at 0830, tolerated well, restraints removed and discontinued. Dr Lindsey at bedside, orders to d/c all sedation, pt able to make needs known, placed on 1L NC. Tele senior policy associate Dr Paez updated on pt status. Art line removed, pt able to maintain O2 saturation of 95% on RA. Pt OOB walking with OT, tolerated well. Caregiver Emre took 12 rings and pt gold bracelet home for safe keeping, brought cell phone to patient. Bed low and locked, call light within reach will continue to monitor.
[2021-12-08] MEDS: AZITHROMYCIN 500 MG in DEXTROSE 5% IN WATER 250 ML IV (22:02)
[2021-12-09] VITALS (22 sets, daily range): BP systolic 162–196; BP diastolic 77–93; PULSE 59–90; RESP 22–34; TEMP 37–37.1; O2SAT 92–97
[2021-12-09] MEDS: PIPERACILLIN/TAZO 3.375 GM in SODIUM CHLORIDE 0.9% 100 ML 25 ML IV ×2 (00:44→08:21)
[2021-12-09] MEDS: HYDRALAZINE 20 MG/ML VIAL 10 MG IV (00:45)
[2021-12-09] MEDS: HEPARIN 5,000 UNIT/ML VIAL 5000 UNIT SUBCUT (05:13)
[2021-12-09] MEDS: SODIUM CHLORIDE 0.9% FLUSH 10 ML IV ×2 (05:14→09:09)
[2021-12-09 06:20] LABS: Add Manual Diff / Slide Review NO; Basophils Absolute Auto 0 /uL (0-100); Basophils Percent Auto 0.3 % (0-2); Eosinophils Absolute Auto 0 /uL (0-450); Eosinophils Percent Auto 0.1 % (2-4); Hematocrit 42.9 % (36-46); Hemoglobin 14.2 g/dL (12.0-16.0); Lymphocytes Absolute Auto 800 /uL (1100-4500); Mean Corpuscular HGB Conc 33.1 % (30-36); Mean Corpuscular Volume 81.7 fL (80-100); Monocytes Absolute Auto 500 /uL (0-900); Monocytes Percent Auto 4.9 % (3-14); Neutrophils Absolute Auto 9100 /uL (1500-7000); Neutrophils Percent Auto 86.7 % (50-75); Platelet Count 235 X10^3/uL (150-400); Red Blood Cell Count 5.25 X10^6/uL (4.0-5.2); Red Cell Distribution Width 14.9 % (11.6-14.8); White Blood Cell Count 10.5 X10^3/uL (4.5-11.0)
--- NOTE | 2021-12-09 06:26 | CM.MNRNOTE ---
Patient using incentive spirometer during the night. Patient oxygen saturations 93-98% on RA. Lungs with scattered coarse crackles posterior sol. Patient medicated with Hydralyazine IV at 0030 for BP 188/88, BP recheck at 0130 162/77. O400 BP 189/89. Recheck BP prior to next available Hydralazine prn and BP 169/82. No further Hydralazine given.
[2021-12-09 06:32] LABS: BUN Creatinine Ratio 24.3 (6-22); Blood Urea Nitrogen 9 mg/dL (7-17); Calcium 9.4 mg/dL (8.4-10.2); Carbon Dioxide 25 mmol/L (22-32); Chloride 103 mmol/L (98-107); Estimated Glomerular Filt Rate > 60 mL/min (>60); Glucose 109 mg/dL (80-110); HEMOLYSIS < 15 (0-50); Magnesium 1.9 mg/dL (1.6-2.3); Sodium 136 mmol/L (137-145)
[2021-12-09 06:42] LABS: Potassium 2.7 mmol/L (3.4-5.1)
--- NOTE | 2021-12-09 07:16 | PC.NURSE ---
notified of patient's critical lab value of serum Potassium of 2.7. Orders received for Potassium Riders 10 meq x 3 riders. After K+ Riders, serum potassium to be rechecked. Patient has c/o feeling full with tube feedings after receiving 75-150 ml and so additional tube feedings not given when patient requesting at each feeding not to receive full 240 ml container.. Patient's gabriel catheter discontinued at 0630 without incidence.
[2021-12-09] MEDS: POTASSIUM CHLORIDE IN WATER 10 MEQ/100 ML PIGGYBACK 100 MEQ IV ×3 (07:22→10:03)
[2021-12-09] MEDS: AMLODIPINE 5 MG TABLET 10 MG TUBE (08:20)
[2021-12-09] MEDS: CITALOPRAM 10 MG TABLET 20 MG TUBE (08:20)
[2021-12-09] MEDS: CLOTRIMAZOLE/BETAMETHASONE CRM 15 GM 1 APPLIC TOP (08:21)
[2021-12-09] MEDS: PANTOPRAZOLE 40 MG VIAL IV (08:21)
[2021-12-09] MEDS: SODIUM,POTASSIUM PHOSPHATES PACKET 2 EACH PO (09:09)
[2021-12-09] MEDS: HYDROMORPHONE 4 MG TABLET 8 MG PO (11:33)
--- NOTE | 2021-12-09 12:30 | CM.DPC ---
DCP Discharge Home Per MD, pt is medically stable to d/c home today and no identified barriers to discharge. Per RN, d/c instructions given and pt's Sig Other/[facility] is bedside and agreeable with transport home and no needs at this time or concerns. SW saw pt being wheeled off the floor and checked in quick with pt and Sig Other and they are happy to d/c home today and have no concerns or needs and decline any further resources. SW provided a copy of pt's Medicare Message to take home on their way. SW faxed pt's d/c summary to [facility] office to review for pt's admission to the hospital. Plan: Patient discharged home today via [facility]'s POV and no further SW needs at this time. MARY KAY Boyd
--- NOTE | 2021-12-13 18:26 | P.DS_ITS ---
History of Present Illness History of Present Illness Date Patient Seen: 12/09/21 Chief complaint: nausea, unresponsive Narrative: Ms. Ospina is a 66W with PMH j-tube after mendez fundoplication, opiate dependence, HTN, chronic respiratory failure on O2 who presents with altered mental status. Apparently she had been in her normal state of health until this afternoon. She has known repeated episodes of vomiting and nausea after her previous mendez procedure. She is on significantly high opiate doses including fentanyl 250mcg along with both short-acting morphine and dilaudid for chronic pain from a remote injury. Earlier today she had an episode of vomiting. No witnessed aspiration event, but she has aspirated many times in the past. She is at baseline on 2L O2 only intermittently, but afterwards had worsening breathing difficulty. She also was noted to be become somnolent. She had her fentanyl placed yesterday, and does not think she used more opiates than normally. Of note she has documentation in chart of demanding opiates previously even while she was noted be oversedated. In the ED workup was done, vitals notable for T 100.1, rr 8, O2 90%. She was noted to be very sedated and given narcan IV 0.4mg three separate times with good but short-lived effect. Labs notable for WBC 21.8, Hgb 13.4, plts 216. Na 127, k 3.3, creat 0.41. Lactate 1.8. Trop negative. Procal 0.20. ABG ph 7.52, co2 37, pao2 74, hco3 30. BNP 181. UA negative. Urine drug screen showed opiates and benzos. Head CT showed no acute process. Chest xray showed bilateral airspace opacities concerning for pneumonia vs pulmonary edema. She was ordered for IV antibiotics and IV fluids in the ED. She was admitted to the ICU for further treatment. Discharge Providers Provider Date of admission: 12/06/21 20:28 Discharge Date: 12/09/21 Primary care physician: Julián Arriaga MD Consults: 12/06/21 22:13 Consult to Tele-ram press operator Routine Comment: Consulting Provider: [employer] [employer] Reason for consultation: [employer] Supervisor services Has provider been notified: Yes 12/07/21 06:02 Consult to Dietitian, Adult Routine Comment: Reason For Exam: tube feeds 12/08/21 12:23 Consult to Occupational Therapy Evaluate & Treat Comment: Physician Instructions: Evaluate and treat Consult to Physical Therapy Evaluate & Treat Comment: Physician Instructions: Evaluate and Treat Discharge provider: Renetta Lindsey MD Summary Hospital Course Discharge Diagnosis: 1. Acute metabolic encephalopathy secondary to unintentional opiate overdose 2. Acute hypoxic respiratory failure, secondary to probable aspiration pneumonia 3. Opiate dependence 4. Hyponatremia 5. Hypertension 6. Depression and anxiety 7. History of Brett fundoplication, complicated, now with J-tube in place Hospital Course: Patient was admitted to the hospital for an inadvertent opiate overdose. As she has had nausea and vomiting associated with her Brett fundoplication it was felt that she had acute hypoxic respiratory failure secondary to probable aspiration. She was treated with antibiotics. There was concern for possible pulmonary edema. Patient underwent cardiac echo which showed an ejection fraction of 70 75%. The right ventricle was mildly dilated. The left atrium was dilated. The patient was electively intubated for progressive respiratory distress. She underwent CT of the abdomen and pelvis to rule out the possibility of intra-abdominal infection. This revealed bilateral lower lobe pneumonia, the patient had thickening of the duodenum consistent with duodenitis, she had thickening of the rectum consistent with proctitis, urinary bladder consistent with cystitis, there was a nonobstructing stone in the left kidney. And multiple chronic compression fractures. Patient was treated with multiple antibiotics, she ultimately was able to be extubated, she was awake and alert, her narcotic medications were adjusted. She was seen by physical therapy and occupational therapy. She was deemed appropriate for discharge, patient was discharged home. Status at Discharge Cognitive/behavioral status at discharge: oriented Functional status at discharge: uses cane/walker Overall status at discharge: patient is progressing back to baseline Exam Vital Signs (past 8 hours): Fraction of Inspired Oxygen 28 Oxygen Delivery Method Room Air Oxygen Flow Rate 0 Narrative Exam Narrative: Pleasant female sitting in a chair in no acute distress Resp Other: Lungs clear to auscultation Cardio Other: Cardiac exam: Regular rate and rhythm normal S1-S2 GI Other: Abdomen: Soft and nontender Extrem Other: Extremities: No edema Objective Labs Result Diagrams: 12/09/21 05:43 12/09/21 05:43 [facility] Medical History Accident Chronic low back pain (01/07/06) Chronic narcotic dependence Depression Fusion of lumbar spine Hormone replacement therapy (postmenopausal) (07/03/05) Late eff spine/trunk fx (08/16/05) Unspecified essential hypertension (07/03/05) Surgical History H/O hysterectomy for benign disease History of cholecystectomy History of Mendez fundoplication Status post thoracic spinal fusion Status post-operative repair of hip fracture Family History Mother Alzheimer disease Father Pneumonia Social History household members: significant other Smoking Status: Never smoker alcohol intake: current Discharge Assessment & Plan Assessment and Plan Assessment: 1. Acute metabolic encephalopathy secondary to unintentional opiate overdose 2. Acute hypoxic respiratory failure, secondary to probable aspiration pneumonia 3. Opiate dependence 4. Hyponatremia 5. Hypertension 6. Depression and anxiety 7. History of Brett fundoplication, complicated, now with J-tube in place Plan of Treatment: Discharge home Discharge Plan Discharge Plan Patient Disposition: Home Discharge orders & Medications Prescriptions: New amoxicillin-pot clavulanate 600-42.9 mg/5 mL suspension for reconstitution 5 ml PO BID 10 Days Qty: 100 0RF fentanyl 100 mcg/hr patch 72 hour 1 patch transdermal Q72H Qty: 5 0RF Continued polyethylene glycol 3350 255 GM powder 17 gm Feeding Tube PRN PRN (Reason: Constipation) Qty: 0 0RF omeprazole-sodium bicarbonate [Zegerid] 40 MG packet 2 pkt Feeding Tube BID Qty: 0 0RF albuterol sulfate [Proventil HFA] 90 MCG/PUFF HFA aerosol inhaler 2 puff INH Q4HP PRN (Reason: Shortness Of Breath) Qty: 8.5 0RF diazepam 5 MG tablet 10 mg PO Q8H PRN (Reason: Anxiety) Qty: 0 0RF carisoprodol 350 MG tablet 1 tab TUBE Q4H PRN (Reason: Spasms) Qty: 0 0RF Rx Instructions: 08/28 CHOLECALCIFEROL (VITAMIN D) 2,000 iu TUBE BID Qty: 0 0RF citalopram 10 MG/5 ML solution 20 mg TUBE QDAY Qty: 0 0RF promethazine 25 MG tablet 1 - 2 tab TUBE Q6HP PRN (Reason: Nausea) Qty: 0 0RF albuterol sulfate 2.5 MG/3 ML solution for nebulization 3 ml INH PRN PRN (Reason: Shortness Of Breath) Qty: 0 0RF DIPHENOXYLATE/ATROPINE SULFATE (DIPHENOXYLATE/ATROPINE) 1 - 2 tab Feeding Tube QIDP PRN (Reason: Diarrhea) Qty: 0 0RF ondansetron HCl [Zofran] 4 MG/5 ML solution 1 - 2 tsp TUBE Q6HP PRN (Reason: Nausea) Qty: 0 0RF amlodipine 10 MG tablet 10 mg Feeding Tube QDAY Qty: 0 0RF desonide 0.05 % lotion 1 glenis Topical PRN PRN (Reason: Rash) Qty: 0 0RF cyclosporine [Restasis] 1 EACH dropperette 1 drp/day EYE-BOTH BID Qty: 0 0RF Ketoconazole 1 glenis Topical PRN PRN (Reason: Rash) Qty: 0 0RF potassium chloride 20 MEQ/15 ML liquid 5.625 ml Feeding Tube DAILY Qty: 0 0RF Rx Instructions: 10% SOLUTION diphenhydramine HCl [Benadryl] 25 mg Capsule 1 - 2 tab Feeding Tube Q4-6H PRN (Reason: Itching) 0RF Peptamen 1.5 0.068 gram- 1.5 kcal/mL Liquid 750 ml Feeding Tube QPM 0RF mupirocin 2 % Ointment 1 applic TOPICAL TID 0RF hydromorphone 8 mg tablet 8 mg feeding tube TID MDD 24 PRN (Reason: Pain (Scale Score 7-10)) 0RF Label Comments: take 1 tablet by mouth three times a day if needed for MODERATE P... (REFER TO PRESCRIPTION NOTES). sennosides [senna] 8.6 mg Tablet 8.6 mg PO BEDTIME PRN (Reason: Constipation) 0RF morphine 10 mg/5 mL solution 30 mg feeding tube Q6H PRN (Reason: Pain (Scale Score 7-10)) 0RF Label Comments: take 15 milliliter by mouth every 6 hours if needed for severe pain FOR UP TO 28 DAYS triamcinolone acetonide 0.5 % Cream 1 applic TOPICAL BID PRN (Reason: Rash) 0RF cyanocobalamin (vitamin B-12) 1,000 mcg Tablet 1,000 mcg PO BID 0RF naloxone [Narcan] 4 mg/actuation [place],Non-Aerosol 4 mg INTRANASAL Q3M PRN (Reason: Opioid Overdose) 0RF Discontinued fentanyl 100 MCG/HR patch 72 hour 200 mcg Topical Q72H Qty: 0 0RF fentanyl 50 mcg/hr patch 72 hour 50 mcg topical Q72H 0RF Label Comments: APPLY 1 PATCH ON THE SKIN EVERY 3RD DAY (total of 250 mcg q 72h) Follow up/Referrals: Julián Arriaga MD [Primary Care Provider] - Discharge Health Status Multidrug resistant organism: No MDRO Diet/Activity/Treatments Diet: Tube Feeding Skin/Wound/Dressing Care Report to your healthcare provider any signs of infection, such as:: chills, fever and increased pain Visit Report/Discharge Packet Instructions: DI for Prescription Opioid Use Discharge Data Primary Care Provider: Julián Arriaga Quality VTE Deep Vein Thrombosis/Pulmonary Embolism Present on Admission: No
== END 2021-12-09 12:22 | disposition home or self-care (01) | DRG 917 ==
LOC: ED 16:50 → AC 20:28 → ICU 12-07 07:31
PROVIDERS: Student in an Organized Health Care Education/Training Program; Admitting Provider Internal Medicine; Emergency Provider Emergency Medicine; Family Provider Internal Medicine; PCP Internal Medicine; Referring Provider Emergency Medicine; Visit Provider Internal Medicine
DX: T40.601A Poisoning by unspecified narcotics, accidental (unintentional), initial encounter (principal); G92.8 Other toxic encephalopathy; J69.0 Pneumonitis due to inhalation of food and vomit; J96.21 Acute and chronic respiratory failure with hypoxia; F11.20 Opioid dependence, uncomplicated; E87.1 Hypo-osmolality and hyponatremia; K92.0 Hematemesis; J81.1 Chronic pulmonary edema; T40.2X1A Poisoning by other opioids, accidental (unintentional), initial encounter; E87.6 Hypokalemia; G89.29 Other chronic pain; M54.50 Low back pain, unspecified; I10 Essential (primary) hypertension; F32.A Depression, unspecified; F41.9 Anxiety disorder, unspecified; Z93.4 Other artificial openings of gastrointestinal tract status; Z99.81 Dependence on supplemental oxygen; Z20.822 Contact with and (suspected) exposure to COVID-19
CPT/HCPCS: 36415; 36592; 36600; 70450; 71045; 71275; 74177; 80048; 80053; 80202; 80305; 80320; 80329; 81001; 82040; 82140; 82550; 82805; 82962; 83605; 83735; 83880; 84100; 84145; 84146; 84443; 84484; 85025; 85610; 85730; 87040; 87635; 87797; 93005; 93010; 93306; 94002; 94003; 94762; 94799; 96365; 96375; 96376; 97161; 97530; 99285; 99291; C9803; C9113; G0480; J0330; J0360; J1642; J1644; J1940; J2310; J2405; J2543; J2704; J2920; J3475; Q9967

== ENCOUNTER 2021-12-23 15:49 | Emergency (ER) | payer MEDICARE, MEDICAID, SELFPAY ==
[2021-12-06 21:16] VITALS: BMI 33.1
[2021-12-07 23:40] VITALS: RESP 2
[2021-12-08 05:30] VITALS: PULSE 66
[2021-12-08 08:20] VITALS: RESP 14; O2SAT 98
[2021-12-23] VITALS (17 sets, daily range): BP systolic 104–143; BP diastolic 59–87; PULSE 63–93; RESP 11–20; TEMP 37.7; O2SAT 87–98
--- NOTE | 2021-12-23 16:03 | ED_ITS ---
HPI - General Adult General Chief complaint: Weakness Stated complaint: Decreased O2 & fall Time Seen by Provider: 12/23/21 15:52 Source: patient and EMS Mode of arrival: EMS Limitations: no limitations History of Present Illness HPI narrative: Patient is a 66-year-old female who is brought in by EMS in a cervical collar after being contacted by the patient's . Is reported that the patient fell out of bed. This was unwitnessed but the patient states she rolled out of bed. She apparently got herself wedged between the bed and a piece of furniture. She was complaining of neck pain but no other new pain she does have chronic joint pain. Is on quite a few no opioid medications. Is also reported that she has had low oxygen saturations recently. EMS stated that her oxygen saturations were in the high 80s upon arrival in this improved with oxygen by nasal cannula. Cervical collar was placed. Patient denies chest pain. Denies cough. No fevers. No abdominal pain. Related Data Home Medications Medication Instructions Recorded Confirmed CHOLECALCIFEROL (VITAMIN D) 2,000 iu TUBE BID #0 09/04/12 12/06/21 albuterol sulfate 90 mcg/actuation 2 puff INH Q4HP PRN #8.5 gm 09/04/12 12/06/21 aerosol inhaler (Proventil HFA) carisoprodol 350 mg tablet 1 tab TUBE Q4H PRN #0 09/04/12 12/06/21 diazepam 5 mg tablet 10 mg PO Q8H PRN #0 09/04/12 12/06/21 omeprazole 40 mg-sodium 2 pkt FEEDING TUBE BID #0 09/04/12 12/06/21 bicarbonate 1,680 mg oral packet (Zegerid) polyethylene glycol 3350 17 17 gm FEEDING TUBE PRN PRN #0 09/04/12 12/06/21 gram/dose oral powder DIPHENOXYLATE/ATROPINE SULFATE 1 - 2 tab FEEDING TUBE QIDP PRN #0 09/07/12 12/06/21 (DIPHENOXYLATE/ATROPINE) albuterol sulfate 3 ml INH PRN PRN #0 09/07/12 12/06/21 citalopram 10 mg/5 mL oral solution 20 mg TUBE QDAY #0 09/07/12 12/06/21 ondansetron HCl 4 mg/5 mL oral 1 - 2 tsp TUBE Q6HP PRN #0 09/07/12 12/06/21 solution (Zofran) promethazine 25 mg tablet 1 - 2 tab TUBE Q6HP PRN #0 09/07/12 12/06/21 Ketoconazole 1 glenis TOPICAL PRN PRN #0 12/23/16 12/06/21 amlodipine 10 mg tablet 10 mg FEEDING TUBE QDAY #0 12/23/16 12/06/21 cyclosporine 0.05 % eye drops in a 1 drp/day EYE-BOTH BID #0 12/23/16 12/06/21 dropperette (Restasis) desonide 0.05 % lotion 1 glenis TOPICAL PRN PRN #0 12/23/16 12/06/21 potassium chloride 20 mEq/15 mL 5.625 ml FEEDING TUBE DAILY #0 12/23/16 12/06/21 oral liquid diphenhydramine HCl 25 mg capsule 1 - 2 tab FEEDING TUBE Q4-6H PRN 05/24/18 12/06/21 (Benadryl) mupirocin 2 % topical ointment 1 applic TOPICAL TID 05/24/18 12/06/21 nut.tx.impaired digest fxn 0.068 750 ml FEEDING TUBE QPM 05/24/18 12/06/21 gram-1.5 kcal/mL oral liquid (Peptamen 1.5) cyanocobalamin (vitamin B-12) 1,000 mcg PO BID 06/09/21 12/06/21 1,000 mcg tablet morphine 10 mg/5 mL oral solution 30 mg FEEDING TUBE Q6H PRN 06/09/21 12/06/21 naloxone 4 mg/actuation nasal 4 mg INTRANASAL Q3M PRN 06/09/21 12/06/21 spray (Narcan) sennosides 8.6 mg tablet (senna) 8.6 mg PO BEDTIME PRN 06/09/21 12/06/21 triamcinolone acetonide 0.5 % 1 applic TOPICAL BID PRN 06/09/21 12/06/21 topical cream hydromorphone 8 mg tablet 8 mg FEEDING TUBE TID PRN MDD 24 12/06/21 12/06/21 Previous Rx's Medication Instructions Recorded fentanyl 100 mcg/hr transdermal 1 patch TRANSDERMAL Q72H #5 ea 12/09/21 patch Allergies Allergy/AdvReac Type Severity Reaction Status Date / Time latex [LATEX] Allergy Mild RASH Verified 10/18/21 09:29 metoclopramide [From REGLAN] Allergy Mild TREMMORS Verified 10/18/21 09:29 Sulfa (Sulfonamide Allergy Mild RASH Verified 10/18/21 09:29 Antibiotics) [SULFA (SULFONAMIDE ANTIBIOTICS)] Iodinated Contrast Media AdvReac Mild Hives Verified 10/18/21 09:29 Review of Systems Review of Systems ROS Unobtainable: All systems reviewed & are unremarkable except as noted in HPI and below Patient History Medical History Accident Chronic low back pain (01/07/06) Chronic narcotic dependence Depression Fusion of lumbar spine Hormone replacement therapy (postmenopausal) (07/03/05) Late eff spine/trunk fx (08/16/05) Unspecified essential hypertension (07/03/05) Surgical History H/O hysterectomy for benign disease History of cholecystectomy History of Mendez fundoplication Status post thoracic spinal fusion Status post-operative repair of hip fracture Family History Mother Alzheimer disease Father Pneumonia Social History household members: significant other Smoking Status: Never smoker alcohol intake: current Smoking Status: Never smoker alcohol intake frequency: holidays/special occasions only Substance Use Type: does not use Exam Initial Vital Signs Initial Vital Signs: Vital Signs Temperature 99.9 F H 12/23/21 16:00 Pulse Rate 93 H 12/23/21 16:00 Respiratory Rate 14 12/23/21 16:00 Blood Pressure 132/67 12/23/21 16:00 Pulse Oximetry 94 12/23/21 16:00 Const General: comfortable HENMT Head: normal to inspection and normocephalic Resp Effort & Inspection: normal respiratory effort Auscultation: clear to auscultation bilaterally Cardio Rate: regular rate Rhythm: regular rhythm GI Inspection: normal to inspection Palpation: soft Back/Spine/Pelvis Cervical Spine: collar present Skin General: no rashes or lesions noted Neuro General: patient alert, patient awake and moves all extremities Extrem General: normal to inspection and capillary refill normal Psych Appearance: grossly normal and well kempt Course Orders Ordered: ED Orders 12/23/21 16:04 CT cervical spine wo con Stat CT head/brain wo con Stat XR chest 1V Stat 12/23/21 16:09 COVID19 -Nasal RAPID/Pre-Proc Stat 12/23/21 16:12 BNP [NT-proBNP (BNP-Adult 18+)] Stat Complete Blood Count AUTO DIFF Stat Comprehensive Metabolic Panel Stat Lipase Stat Procalcitonin Stat Troponin & CK Cardiac Panel Stat 12/23/21 16:28 EKG-12 Lead Stat Discontinued Medications Naloxone HCl (Naloxone 0.4 Mg/Ml Vial) 0.4 mg IV NOW ONE Stop: 12/23/21 19:02 Last Admin: 12/23/21 19:28 Dose: Not Given Documented by: STEFANIE Vital Signs Vital signs: Vital Signs - 8 hr 12/23/21 16:00 12/23/21 16:29 12/23/21 16:30 Temperature 99.9 F H Pulse Rate 93 H 84 82 Respiratory Rate 14 16 Blood Pressure 132/67 119/67 115/64 Pulse Oximetry 94 98 98 12/23/21 16:45 12/23/21 17:00 12/23/21 17:15 Temperature Pulse Rate 79 76 67 Respiratory Rate 19 20 16 Blood Pressure 113/59 L 110/67 108/66 Pulse Oximetry 97 96 95 12/23/21 17:30 12/23/21 17:45 12/23/21 18:00 Temperature Pulse Rate 65 66 63 Respiratory Rate 15 14 14 Blood Pressure 104/62 109/64 107/63 Pulse Oximetry 94 95 95 12/23/21 18:15 12/23/21 18:30 12/23/21 18:54 Temperature Pulse Rate 63 75 75 Respiratory Rate 16 11 L Blood Pressure 109/64 107/66 142/76 H Pulse Oximetry 96 93 95 12/23/21 18:58 12/23/21 19:00 Temperature Pulse Rate 66 68 Respiratory Rate 15 15 Blood Pressure 143/79 H Pulse Oximetry 97 97 Medical Decision Making Lab Data Lab results reviewed: Yes I reviewed the patient's lab results. Result diagrams: 12/23/21 16:12 12/23/21 16:12 Labs: Lab Results 12/23/21 12/23/21 12/23/21 Range/Units 16:09 16:12 16:12 WBC 12.4 H (4.5-11.0) X10^3/uL RBC 4.53 (4.0-5.2) X10^6/uL Hgb 12.2 (12.0-16.0) g/dL Hct 37.2 (36-46) % MCV 82.2 (80-100) fL MCH 26.9 (26-34) PG MCHC 32.7 (30-36) % RDW 15.7 H (11.6-14.8) % Plt Count 191 (150-400) X10^3/uL Neut % (Auto) 93.3 H (50-75) % Lymph % (Auto) 2.9 L (25-40) % [place] % (Auto) 3.2 (3-14) % Eos % (Auto) 0.1 L (2-4) % Baso % (Auto) 0.5 (0-2) % Neut # (Auto) 25253 H (7676-1783) /uL Lymph # (Auto) 400 L (0402-5238) /uL [place] # (Auto) 400 (0-900) /uL Eos # (Auto) 0 (0-450) /uL Baso # (Auto) 100 (0-100) /uL Sodium 127 L (137-145) mmol/L Potassium 3.0 L (3.4-5.1) mmol/L Chloride 87 L (98-107) mmol/L Carbon Dioxide 33 H (22-32) mmol/L BUN 2 L (7-17) mg/dL Creatinine 0.38 L (0.52-1.04) mg/dL Estimated GFR > 60 (>60) mL/min BUN/Creatinine Ratio 5.3 L (6-22) Glucose 131 H (80-110) mg/dL Calcium 9.4 (8.4-10.2) mg/dL Total Bilirubin 0.9 (0.2-1.3) mg/dL AST 27 (14-36) IU/L ALT 10 (<35) IU/L Alkaline Phosphatase 50 (38-126) U/L Total Creatine Kinase < 20 L (30-135) U/L CK-MB (CK-2) TNP CK-MB (CK-2) Rel Index TNP Troponin I < 0.012 (0.01-0.034) ng/mL NT-Pro-B Natriuret Pep (<125) pg/mL Total Protein 7.1 (6.3-8.2) g/dL Albumin 3.8 (3.5-5.0) g/dL Globulin 3.3 (1.7-4.1) g/dL Albumin/Globulin Ratio 1.2 (1.0-2.8) Lipase < 10 L (23-300) U/L Procalcitonin 0.24 (<0.5) ng/mL SARS-CoV-2 (PCR) Negative (Negative) 12/23/21 Range/Units 16:12 WBC (4.5-11.0) X10^3/uL RBC (4.0-5.2) X10^6/uL Hgb (12.0-16.0) g/dL Hct (36-46) % MCV (80-100) fL MCH (26-34) PG MCHC (30-36) % RDW (11.6-14.8) % Plt Count (150-400) X10^3/uL Neut % (Auto) (50-75) % Lymph % (Auto) (25-40) % [place] % (Auto) (3-14) % Eos % (Auto) (2-4) % Baso % (Auto) (0-2) % Neut # (Auto) (1007-9145) /uL Lymph # (Auto) (7021-1938) /uL [place] # (Auto) (0-900) /uL Eos # (Auto) (0-450) /uL Baso # (Auto) (0-100) /uL Sodium (137-145) mmol/L Potassium (3.4-5.1) mmol/L Chloride (98-107) mmol/L Carbon Dioxide (22-32) mmol/L BUN (7-17) mg/dL Creatinine (0.52-1.04) mg/dL Estimated GFR (>60) mL/min BUN/Creatinine Ratio (6-22) Glucose (80-110) mg/dL Calcium (8.4-10.2) mg/dL Total Bilirubin (0.2-1.3) mg/dL AST (14-36) IU/L ALT (<35) IU/L Alkaline Phosphatase (38-126) U/L Total Creatine Kinase (30-135) U/L CK-MB (CK-2) CK-MB (CK-2) Rel Index Troponin I (0.01-0.034) ng/mL NT-Pro-B Natriuret Pep 141 H (<125) pg/mL Total Protein (6.3-8.2) g/dL Albumin (3.5-5.0) g/dL Globulin (1.7-4.1) g/dL Albumin/Globulin Ratio (1.0-2.8) Lipase (23-300) U/L Procalcitonin (<0.5) ng/mL SARS-CoV-2 (PCR) (Negative) Imaging Data CT scan - head: Radiologist's Impression: [address] [address] [address] Scan Report Signed Patient: Rodriguez Ospina MR#: [id number] : 1955 Acct:[id number] Age/Sex: 66 / F Date of Service: 12/23/21 Loc: ED Accession Number: [id number] ?? Procedure: CT head/brain wo con Ordering Provider: Umesh House D.O. PROCEDURE:? CT HEAD/BRAIN WO CON ? INDICATIONS:? Unwitnessed fall ? TECHNIQUE:? Noncontrast 4.5 mm thick angled axial sections acquired from the foramen magnum to the vertex, with coronal and sagittal reformats.? For radiation dose reduction, the following was used:? automated exposure control, adjustment of mA and/or kV according to patient size.? ? COMPARISON:? [facility], CT, CT BRAIN WO CON, 05/09/2016, 11:55.? [facility], CT, CT HEAD WITHOUT CONTRAST, 06/20/2019, 10:36.? [facility], CT, CT CERVICAL SPINE WO CON, 12/23/2021, 16:11.? [facility], CR, XR CHEST 1V, 12/23/2021, 16:06.? [facility], CT, CT HEAD/BRAIN WO CON, 12/06/2021, 17:02. ? FINDINGS:? Image quality:? Excellent.? ? CSF spaces:? Basal cisterns are patent.? No extra-axial fluid collections.? The ventricles are symmetric in size and shape.? ? Brain:? No intracranial bleeds or masses.? There is cerebral volume loss for age, with resultant ventricular and sulcal prominence.? There are periventricular and deep white matter chronic small vessel ischemic changes.? There is intracranial internal carotid artery atherosclerosis.? ? Skull and face:? Calvarium and visualized facial bones appear intact, without suspicious lesions.? Incidental note is made of hyperostosis frontalis. This is not considered to be pathologic in a woman of this age. ? Sinuses:? Visualized sinuses and mastoids are clear.? ? ? IMPRESSION:? No acute intracranial hemorrhage is seen.? ? No acute intracranial process is seen.? ? ? Dictated by: Arie Arechiga M.D. on 12/23/2021 at 15:44 ? ? Approved by: Arie Arechiga M.D. on 12/23/2021 at 15:45?? CT - cervical spine: Radiologist's Impression: [place] [address] CT Scan Report Signed Patient: Rodriguez Ospina MR#: [id number] : 1955 Acct:[id number] Age/Sex: 66 / F Date of Service: 12/23/21 Loc: ED Accession Number: [id number] ?? Procedure: CT cervical spine wo con Ordering Provider: Umesh House D.O. PROCEDURE:? CT CERVICAL SPINE WO CON ? INDICATIONS:? Fall with neck pain ? TECHNIQUE:? Noncontrast 3 mm thick sections acquired from the skull base to the T4 level.? Sagittal and coronal reformats were then constructed.? For radiation dose reduction, the following was used:? automated exposure control, adjustment of mA and/or kV according to patient size.? ? COMPARISON:? [facility], CT, CT HEAD/BRAIN WO CON, 12/23/2021, 16:11.? [facility], CR, XR CHEST 1V, 12/23/2021, 16:06. ? FINDINGS:? Image quality:? Excellent.? ? Bones:? No fractures or dislocations.? Visualized superior ribs are intact.? ? At least moderate disc space narrowing can be seen at C4-C5, C5-C6, and C6-C7.? Posteriorly directed endplate osteophytes are seen, which are worst at C6-C7. ? Soft tissues:? Prevertebral soft tissues are normal in thickness.? No paravertebral hematomas.? No apical pneumothoraces.? Perihilar infiltrates can be seen within the visualized lungs. ? ? IMPRESSION:? Negative for acute fracture. ? Cervical spine degenerative changes are seen, which are worst at C5-C6. ? Perihilar infiltrates can be seen within the visualized lungs.? CHF is suspected. ? Dictated by: Arie Arechiga M.D. on 12/23/2021 at 15:46 ? ? Approved by: Arie Arechiga M.D. on 12/23/2021 at 15:47?? Chest x-ray: Radiologist's Impression: [address] [address] XRay Report Signed Patient: Rodriguez Ospina MR#: [id number] : 1955 Acct:[id number] Age/Sex: 66 / F Date of Service: 12/23/21 Loc: ED Accession Number: [id number] ?? Procedure: XR chest 1V Ordering Provider: Umehs House D.O. PROCEDURE:? XR CHEST 1V ? INDICATIONS:? Shortness of breath/hypoxia ? TECHNIQUE:? One view of the chest was acquired.? ? COMPARISON:? [facility], CT, CT HEAD/BRAIN WO CON, 12/23/2021, 16:11.? [facility], CT, CT CERVICAL SPINE WO CON, 12/23/2021, 16:11.? [facility], CT, CT ANGIO CHEST PE PROTOCOL, 12/07/2021, 16:00.? [facility], CR, XR CHEST 1V, 12/07/2021, 11:26. ? FINDINGS:? ? Surgical changes and devices:? None.? ? Lungs and pleura:? Low lung volumes are noted. This causes a crowded appearance to the lung markings and limits evaluation.? Generalized interstitial infiltrates are seen, which are worst within the perihilar regions. ? Mediastinum:? Mediastinal contours appear normal.? Heart size is moderately enlarged.? ? Bones and chest wall:? No suspicious bony lesions.? Age-appropriate bony dege nerative changes are seen.? Overlying soft tissues appear unremarkable.? IMPRESSION:? Cardiomegaly and perihilar infiltrates. Please correlate with patient presentation, physical examination findings, and laboratory values for congestive heart failure. ? ? ? Dictated by: Arie Arechiga M.D. on 12/23/2021 at 15:43 ? ? Approved by: Arie Arechiga M.D. on 12/23/2021 at 15:43? ECG Data Attestation: I personally reviewed and interpreted this ECG as follows: Interpretation: Sinus rhythm Ventricular rate 82 Normal axis Normal QRS Nonspecific ST T wave changes MDM Narrative Medical decision making narrative: Radiologic studies shows no signs of acute pathology. Her cervical collar was removed. She is on oxygen by nasal cannula at home and at 3-4 L here in the emergency department her saturations maintained in the mid 90s. The chest x-ray shows concern for fluid overload however clinically this is not the case. Her BNP is unremarkable. She does not have any lower extremity swelling. Does not have crackles on her lung exam. She has no history of CHF. She states she does have history of ?scarring ?in her lungs. She feels that she is at her baseline respiratory status. Patient's states that when these similar things have happened in the past she has ultimately been diagnosed with pneumonia. I do not think that that is happening today. She has no fevers. And I feel that starting her on antibiotics today without a definitive pneumonia would subject her to antibiotics for which she does not need. We attempted to stand her at bedside and the patient did have some shortness of breath and was unsteady on her feet. Had a long discussion with the patient her but the last time that she was here and how the thought was that this was a overdose of her opioid medication. This still could be the issue today however they stated that since that time they have reduced much of her medications at home. We talked about admitting her to the hospital given her respiratory status and also her weakness however the patient did not feel that she needed that. She states that her un steadiness was because of the neuropathy in her feet and also because of the different walker that we have here compared to the 1 that she has a home. Her states that she can become very unsteady at home it is not necessarily new for her. Patient states that she feels like she can go home. We discussed the possibility of an early pneumonia and she was given strict return precautions to include fevers, productive cough, weakness Excedrin. Expressed understanding of this and was comfortable taking her home. Discharge Plan Departure Patient Disposition: Home Clinical Impression: Shortness of breath, Fall Instructions: DI for Shortness of Breath Activity Restrictions/Additional Instructions: Continue to take all of your medications as directed. Use the oxygen at home as needed. Return to the emergency department if your symptoms worsen, you get any fevers, your shortness of breath gets worse, you notice that your needing more oxygen at home or any other new or worsening symptoms. Prescriptions: No Action polyethylene glycol 3350 255 GM powder 17 gm Feeding Tube PRN PRN (Reason: Constipation) Qty: 0 0RF omeprazole-sodium bicarbonate [Zegerid] 40 MG packet 2 pkt Feeding Tube BID Qty: 0 0RF albuterol sulfate [Proventil HFA] 90 MCG/PUFF HFA aerosol inhaler 2 puff INH Q4HP PRN (Reason: Shortness Of Breath) Qty: 8.5 0RF diazepam 5 MG tablet 10 mg PO Q8H PRN (Reason: Anxiety) Qty: 0 0RF carisoprodol 350 MG tablet 1 tab TUBE Q4H PRN (Reason: Spasms) Qty: 0 0RF Rx Instructions: 08/28 CHOLECALCIFEROL (VITAMIN D) 2,000 iu TUBE BID Qty: 0 0RF citalopram 10 MG/5 ML solution 20 mg TUBE QDAY Qty: 0 0RF promethazine 25 MG tablet 1 - 2 tab TUBE Q6HP PRN (Reason: Nausea) Qty: 0 0RF albuterol sulfate 2.5 MG/3 ML solution for nebulization 3 ml INH PRN PRN (Reason: Shortness Of Breath) Qty: 0 0RF DIPHENOXYLATE/ATROPINE SULFATE (DIPHENOXYLATE/ATROPINE) 1 - 2 tab Feeding Tube QIDP PRN (Reason: Diarrhea) Qty: 0 0RF ondansetron HCl [Zofran] 4 MG/5 ML solution 1 - 2 tsp TUBE Q6HP PRN (Reason: Nausea) Qty: 0 0RF amlodipine 10 MG tablet 10 mg Feeding Tube QDAY Qty: 0 0RF desonide 0.05 % lotion 1 glenis Topical PRN PRN (Reason: Rash) Qty: 0 0RF cyclosporine [Restasis] 1 EACH dropperette 1 drp/day EYE-BOTH BID Qty: 0 0RF Ketoconazole 1 glenis Topical PRN PRN (Reason: Rash) Qty: 0 0RF potassium chloride 20 MEQ/15 ML liquid 5.625 ml Feeding Tube DAILY Qty: 0 0RF Rx Instructions: 10% SOLUTION diphenhydramine HCl [Benadryl] 25 mg Capsule 1 - 2 tab Feeding Tube Q4-6H PRN (Reason: Itching) 0RF Peptamen 1.5 0.068 gram- 1.5 kcal/mL Liquid 750 ml Feeding Tube QPM 0RF mupirocin 2 % Ointment 1 applic TOPICAL TID 0RF hydromorphone 8 mg tablet 8 mg feeding tube TID MDD 24 PRN (Reason: Pain (Scale Score 7-10)) 0RF Label Comments: take 1 tablet by mouth three times a day if needed for MODERATE P... (REFER TO PRESCRIPTION NOTES). fentanyl 100 mcg/hr patch 72 hour 1 patch transdermal Q72H Qty: 5 0RF sennosides [senna] 8.6 mg Tablet 8.6 mg PO BEDTIME PRN (Reason: Constipation) 0RF morphine 10 mg/5 mL solution 30 mg feeding tube Q6H PRN (Reason: Pain (Scale Score 7-10)) 0RF Label Comments: take 15 milliliter by mouth every 6 hours if needed for severe pain FOR UP TO 28 DAYS triamcinolone acetonide 0.5 % Cream 1 applic TOPICAL BID PRN (Reason: Rash) 0RF cyanocobalamin (vitamin B-12) 1,000 mcg Tablet 1,000 mcg PO BID 0RF naloxone [Narcan] 4 mg/actuation [place],Non-Aerosol 4 mg INTRANASAL Q3M PRN (Reason: Opioid Overdose) 0RF Referrals: Julián Arriaga MD [Primary Care Provider] -
--- NOTE | 2021-12-23 16:04 | DI.CT.S_ITS ---
PROCEDURE: CT CERVICAL SPINE WO CON INDICATIONS: Fall with neck pain TECHNIQUE: Noncontrast 3 mm thick sections acquired from the skull base to the T4 level. Sagittal and coronal reformats were then constructed. For radiation dose reduction, the following was used: automated exposure control, adjustment of mA and/or kV according to patient size. COMPARISON: [facility], CT, CT HEAD/BRAIN WO CON, 12/23/2021, 16:11. [facility], CR, XR CHEST 1V, 12/23/2021, 16:06. FINDINGS: Image quality: Excellent. Bones: No fractures or dislocations. Visualized superior ribs are intact. At least moderate disc space narrowing can be seen at C4-C5, C5-C6, and C6-C7. Posteriorly directed endplate osteophytes are seen, which are worst at C6-C7. Soft tissues: Prevertebral soft tissues are normal in thickness. No paravertebral hematomas. No apical pneumothoraces. Perihilar infiltrates can be seen within the visualized lungs. IMPRESSION: Negative for acute fracture. Cervical spine degenerative changes are seen, which are worst at C5-C6. Perihilar infiltrates can be seen within the visualized lungs. CHF is suspected. Dictated by: Arie Arechiga M.D. on 12/23/2021 at 15:46 Approved by: Arie Arechiga M.D. on 12/23/2021 at 15:47
--- NOTE | 2021-12-23 16:04 | DI.RAD.S_ITS ---
PROCEDURE: XR CHEST 1V INDICATIONS: Shortness of breath/hypoxia TECHNIQUE: One view of the chest was acquired. COMPARISON: [facility], CT, CT HEAD/BRAIN WO CON, 12/23/2021, 16:11. [facility], CT, CT CERVICAL SPINE WO CON, 12/23/2021, 16:11. [facility], CT, CT ANGIO CHEST PE PROTOCOL, 12/07/2021, 16:00. [facility], CR, XR CHEST 1V, 12/07/2021, 11:26. FINDINGS: Surgical changes and devices: None. Lungs and pleura: Low lung volumes are noted. This causes a crowded appearance to the lung markings and limits evaluation. Generalized interstitial infiltrates are seen, which are worst within the perihilar regions. Mediastinum: Mediastinal contours appear normal. Heart size is moderately enlarged. Bones and chest wall: No suspicious bony lesions. Age-appropriate bony degenerative changes are seen. Overlying soft tissues appear unremarkable. IMPRESSION: Cardiomegaly and perihilar infiltrates. Please correlate with patient presentation, physical examination findings, and laboratory values for congestive heart failure. Dictated by: Arie Arechiga M.D. on 12/23/2021 at 15:43 Approved by: Arie Arechiga M.D. on 12/23/2021 at 15:43
--- NOTE | 2021-12-23 16:04 | DI.CT.S_ITS ---
PROCEDURE: CT HEAD/BRAIN WO CON INDICATIONS: Unwitnessed fall TECHNIQUE: Noncontrast 4.5 mm thick angled axial sections acquired from the foramen magnum to the vertex, with coronal and sagittal reformats. For radiation dose reduction, the following was used: automated exposure control, adjustment of mA and/or kV according to patient size. COMPARISON: [facility], CT, CT BRAIN WO CON, 05/09/2016, 11:55. [facility], CT, CT HEAD WITHOUT CONTRAST, 06/20/2019, 10:36. [facility], CT, CT CERVICAL SPINE WO CON, 12/23/2021, 16:11. [facility], CR, XR CHEST 1V, 12/23/2021, 16:06. [facility], CT, CT HEAD/BRAIN WO CON, 12/06/2021, 17:02. FINDINGS: Image quality: Excellent. CSF spaces: Basal cisterns are patent. No extra-axial fluid collections. The ventricles are symmetric in size and shape. Brain: No intracranial bleeds or masses. There is cerebral volume loss for age, with resultant ventricular and sulcal prominence. There are periventricular and deep white matter chronic small vessel ischemic changes. There is intracranial internal carotid artery atherosclerosis. Skull and face: Calvarium and visualized facial bones appear intact, without suspicious lesions. Incidental note is made of hyperostosis frontalis. This is not considered to be pathologic in a woman of this age. Sinuses: Visualized sinuses and mastoids are clear. IMPRESSION: No acute intracranial hemorrhage is seen. No acute intracranial process is seen. Dictated by: Arie Arechiga M.D. on 12/23/2021 at 15:44 Approved by: Arie Arechiga M.D. on 12/23/2021 at 15:45
[2021-12-23 16:24] LABS: Add Manual Diff / Slide Review NO; Basophils Absolute Auto 100 /uL (0-100); Basophils Percent Auto 0.5 % (0-2); Eosinophils Absolute Auto 0 /uL (0-450); Eosinophils Percent Auto 0.1 % (2-4); Hematocrit 37.2 % (36-46); Hemoglobin 12.2 g/dL (12.0-16.0); Lymphocytes Absolute Auto 400 /uL (1100-4500); Lymphocytes Percent Auto 2.9 % (25-40); Mean Corpuscular HGB Conc 32.7 % (30-36); Mean Corpuscular Hemoglobin 26.9 PG (26-34); Mean Corpuscular Volume 82.2 fL (80-100); Monocytes Absolute Auto 400 /uL (0-900); Monocytes Percent Auto 3.2 % (3-14); Neutrophils Absolute Auto 11600 /uL (1500-7000); Neutrophils Percent Auto 93.3 % (50-75); Platelet Count 191 X10^3/uL (150-400); Red Blood Cell Count 4.53 X10^6/uL (4.0-5.2); Red Cell Distribution Width 15.7 % (11.6-14.8); White Blood Cell Count 12.4 X10^3/uL (4.5-11.0)
[2021-12-23 16:35] LABS: Alanine Aminotransferase 10 IU/L (<35); Albumin 3.8 g/dL (3.5-5.0); Albumin Globulin Ratio 1.2 (1.0-2.8); Alkaline Phosphatase 50 U/L (38-126); Aspartate Aminotransferase 27 IU/L (14-36); Bilirubin Total 0.9 mg/dL (0.2-1.3); Calcium 9.4 mg/dL (8.4-10.2); Carbon Dioxide 33 mmol/L (22-32); Chloride 87 mmol/L (98-107); Creatine Kinase < 20 U/L (30-135); Estimated Glomerular Filt Rate > 60 mL/min (>60); Globulin 3.3 g/dL (1.7-4.1); Glucose 131 mg/dL (80-110); HEMOLYSIS 29 (0-50); Sodium 127 mmol/L (137-145); Total Protein 7.1 g/dL (6.3-8.2)
[2021-12-23 16:43] LABS: COVID19 -Nasal RAPID Negative (Negative)
[2021-12-23 16:44] LABS: BUN Creatinine Ratio 5.3 (6-22); Blood Urea Nitrogen 2 mg/dL (7-17); Lipase < 10 U/L (23-300)
[2021-12-23 16:47] LABS: Troponin I < 0.012 ng/mL (0.01-0.034)
[2021-12-23 16:52] LABS: Procalcitonin 0.24 ng/mL (<0.5)
[2021-12-23 17:16] LABS: NT-proBNP (BNP-Adult 18+) 141 pg/mL (<125)
== END 2021-12-23 20:01 | disposition home or self-care (01) ==
PROVIDERS: Emergency Provider Emergency Medicine; Family Provider Internal Medicine; PCP Internal Medicine
DX: R06.02 Shortness of breath (principal); R53.1 Weakness; Z99.81 Dependence on supplemental oxygen; W06.XXXA Fall from bed, initial encounter; Z20.822 Contact with and (suspected) exposure to COVID-19
CPT/HCPCS: 36415; 70450; 71045; 72125; 80053; 82550; 83690; 83880; 84145; 84484; 85025; 87635; 93005; 93010; 99284; C9803